=== PATIENT | female | born 1985 | race Caucasian/White ===

== ENCOUNTER 2022-09-27 12:27 | Outpatient (OUT) | payer OTHER, SELFPAY ==
--- NOTE | 2022-09-27 13:04 | VEIN_ITS ---
Patient: LESLY ANAYA Exam Date: 09/27/2022 : 1985 Gender:F Ordering : DR TAWANA GALVIN M.D. Admission #: [id number] Family : Order #: [id number] CLICK HERE TO VIEW EXAM RADIOLOGY REPORT PROCEDURE: [facility] EST [facility] - OFFICE VISIT FOLLOW UP COMPARISON: None. PROGRESS NOTES: The patient reports mild tenderness within medial right lower leg and thigh and mild bruising. There has been interval reduction in varicosities. The patient has followed our recommendations to walk 20-30 minutes once or twice per day since the procedure. Physical exam demonstrates mild bruising within the medial thigh and lower right leg. No evidence of infection. Persistent varicosities are identified along the right leg. Review of the ultrasound performed the same day demonstrates occlusive thrombus extending throughout the treated vein, see separate report, consistent with a successful ablation. No thrombus extending into or beyond the saphenofemoral junction. The patient expressed a desire to proceed with treatment of remaining dilated incompetent superficial veins. The patient was informed that treatment was a process and would require several procedures/sessions. IMPRESSION: 1. Successful ablation of the right great saphenous vein 2. Persistent incompetent dilated veins and bilateral lower extremity symptoms PLAN: Endovenous laser ablation of left great saphenous vein. Nurse notes, history and physical were reviewed and confirmed, see attached forms. The nurse was present throughout the physical exam and consultation Dictated by: Sebastian Garrett M.D. on 09/27/2022 at 13:18 Approved by: Sebastian Garrett M.D. on 09/27/2022 at 13:23
--- NOTE | 2022-09-27 13:04 | VEIN_ITS ---
Patient: LESLY ANAYA Exam Date: 09/27/2022 : 1985 Gender:F Ordering : DR TAWANA GALVIN M.D. Admission #: [id number] Family : Order #: [id number] CLICK HERE TO VIEW EXAM RADIOLOGY REPORT PROCEDURE: VC EXT VENOUS RT LMTD COMPARISON: None. INDICATIONS: Superficial Phlebitis and Thrombophlebitis of right lower extremity i80.01 TECHNIQUE: Lower extremity larson scale and Duplex Doppler evaluation of the deep venous system from the inguinal ligament through the calf veins. FINDINGS: REGION: Right lower extremity. THROMBI: Negative for DVT. Heat induced thrombus in right GSV 4.0 mm from SFJ and extends to proximal calf. Thrombus also visualized in varicose vein medial thigh off GSV. COMPRESSIBILITY: Non-compressible segments. FLOW: Areas of no flow. OTHER: CONCLUSION: 1. Successful post ablation occlusion of right great saphenous vein. 2. Thrombus extends to within 4 millimeters of the saphenofemoral junction. Patient will be placed on 325 mg aspirin once per day for 2 weeks. Follow-up ultrasound in 2 weeks. Dictated by: Sebastian Garrett M.D. on 09/27/2022 at 13:03 Approved by: Sebastian Garrett M.D. on 09/27/2022 at 13:18
== END 2022-09-27 12:28 ==
LOC: VC 12:27
PROVIDERS: PCP Radiology Diagnostic Radiology; Visit Provider Radiology Diagnostic Radiology
DX: I80.01 Phlebitis and thrombophlebitis of superficial vessels of right lower extremity (principal); I83.813 Varicose veins of bilateral lower extremities with pain
CPT/HCPCS: 93971; G0463

== ENCOUNTER 2022-10-10 09:55 | Outpatient (OUT) | payer OTHER, SELFPAY ==
--- NOTE | 2022-10-10 | VEIN_ITS ---
[address] [address] Patient Name: LESLY ANAYA MRN: [id number] date: 1985 Sex: F Assigned Patient Location: Current Patient Location: Accession/Order Number: [id number] Exam Date: 10/10/2022 08:55 Report Date: 10/10/2022 14:36 At the request of: TAWANA GALVIN Procedure: VC Endovenous Ablation 1VeinLT EXAMINATION: VC Endovenous Ablation 1VeinLT HISTORY: Pain due to varicose veins of bilateral legs I83.813 COMPARISON: No relevant comparison available. TECHNIQUE: The risks and benefits of the procedure had been previously discussed, and were rediscussed at length. Informed written consent was obtained and Joo Felder assisted. Time out procedure was performed. The left lower extremity was prepared and draped in the usual sterile fashion to allow knee flexion in the sterile field. Duplex ultrasound probe was draped in a sterile cover, sterile transmission gel was used. Venous mapping was performed with the areas of dilation and large tributaries marked. The total length was 63 cm from the entry 6 cm above the medial malleolus to 3 cm below the saphenofemoral junction. The diameter of the greater saphenous vein ranged from 4-14 mm. A 30 gauge needle and 1% buffered lidocaine was used to anesthetize the entry site. A 4 mm incision was made with a scalpel and the saphenous vein was entered percutaneously under direct ultrasound guidance with a micropuncture set, a single stick was successful in gaining access. A micro-guide wire was inserted and the needle removed. A micro-set including a dilator was inserted over the microwire and the needle and dilator were removed. A .038 guide wire was inserted through the micro-set and threaded through the saphenous vein to the saphenofemoral junction. The dilator was removed and an introducer sheath was inserted over the wire until the end of the sheath entered the saphenofemoral junction. The dilator and wire were removed and the 600 micron fiber was introduced and placed and positioned so that it extended beyond the sheath and was 3 cm peripheral to the saphenofemoral femoral junction. Final position of the fiber was determined by ultrasound guidance and duplex imaging. Tumescent anesthetic was delivered by ultrasound guidance. 350 cc of fluid was delivered along the entire course of the saphenous vein. The solution consisted of 1000 cc of normal saline with 40 mL of 1% lidocaine and 20 mL of sodium bicarbonate. A final positioning check was made. The energy source was turned on by means of the foot pedal and the fiber and sheath were withdrawn. The total number of Joules delivered was 2962. The laser was active for 370seconds under continuous pulse, average laser use of 8 J. Laser start time 10:49 am 10/10/22. . Laser stop time 10:55 am 10/10/22. A duplex ultrasound revealed compressibility and flow at the saphenofemoral junction immediately after the procedure. Hemostasis at the access site was achieved. The skin incision of the saphenous vein was closed with a 4 x 4. A compression stocking was applied. Postop instructions were given. A follow up appointment was recommended and scheduled. The patient tolerated the procedure well and was discharged in good condition. IMPRESSION: Technically successful endovenous laser ablation left great saphenous vein Electronically authenticated by: TAWANA GALVIN Date: 10/10/2022 14:36
[2022-10-14] MEDS: LIDOCAINE HCL 10 ML, SODIUM BICARBONATE 1 MEQ INJ (11:45)
[2022-10-14] MEDS: 0.9 % SODIUM CHLORIDE 500 ML, LIDOCAINE HCL 20 ML, SODIUM BICARBONATE 10 MEQ INJ (11:45)
== END 2022-10-10 09:56 ==
LOC: VC 09:56
PROVIDERS: PCP Radiology Diagnostic Radiology; Visit Provider Radiology Diagnostic Radiology
DX: I83.813 Varicose veins of bilateral lower extremities with pain (principal)
CPT/HCPCS: 36478

== ENCOUNTER 2022-10-17 14:22 | Outpatient (OUT) | payer OTHER, SELFPAY ==
--- NOTE | 2022-10-17 14:24 | VEIN_ITS ---
Patient: LESLY ANAYA Exam Date: 10/17/2022 : 1985 Gender:F Ordering : DR TAWANA GALVIN M.D. Admission #: [id number] Family : Order #: [id number] CLICK HERE TO VIEW EXAM RADIOLOGY REPORT PROCEDURE: [facility] EST [facility] - OFFICE VISIT FOLLOW UP COMPARISON: FACILITY EST [facility]D, 09/27/2022. PROGRESS NOTES: The patient reports prominent bruising within left thigh and mild twinges of discomfort with movement. There has been interval reduction in varicosities. The patient has followed our recommendations to walk 20-30 minutes once or twice per day since the procedure. Physical exam demonstrates large area of bruising within left thigh, and slight decrease in varicosities of the left leg. Persistent varicosities are identified along the legs bilaterally. Review of the ultrasound performed the same day demonstrates occlusive thrombus extending throughout the treated vein, see separate report, consistent with a successful ablation. No thrombus extending into or beyond the saphenofemoral junction. The patient expressed a desire to proceed with treatment of remaining incompetent superficial veins. The patient was informed that treatment was a process and would require several procedures/sessions. IMPRESSION: 1. Successful ablation of the left great saphenous vein 2. Persistent incompetent varicose veins and bilateral lower extremity symptoms PLAN: 1. Endovenous laser ablation of right small saphenous vein. Nurse notes, history and physical were reviewed and confirmed, see attached forms. The nurse was present throughout the physical exam and consultation Dictated by: Sebastian Garrett M.D. on 10/17/2022 at 15:01 Approved by: Sebastian Garrett M.D. on 10/17/2022 at 15:03
--- NOTE | 2022-10-17 14:24 | VEIN_ITS ---
Patient: LESLY ANAYA Exam Date: 10/17/2022 : 1985 Gender:F Ordering : DR TAWANA GALVIN M.D. Admission #: [id number] Family : Order #: [id number] CLICK HERE TO VIEW EXAM RADIOLOGY REPORT PROCEDURE: VC EXT VENOUS LT LIMITED COMPARISON: None. INDICATIONS: Phlebitis of superficial veins of lt lower extremity I80.02 TECHNIQUE: Lower extremity larson scale and Duplex Doppler evaluation of the deep venous system from the inguinal ligament through the calf veins. FINDINGS: REGION: Left lower extremity. THROMBI: Negative for DVT. Heat induced thrombus visualized 1.8 cm from the SFJ. The heat induced thrombus extends from groin to mid calf. COMPRESSIBILITY: Non-compressible segments. FLOW: Areas of no flow. OTHER: CONCLUSION: 1. Successful post ablation occlusion of left great saphenous vein. Dictated by: Sebastian Garrett M.D. on 10/17/2022 at 15:00 Approved by: Sebastian Garrett M.D. on 10/17/2022 at 15:00
== END 2022-10-17 14:23 ==
LOC: VC 14:23
PROVIDERS: PCP Radiology Diagnostic Radiology; Visit Provider Radiology Diagnostic Radiology
DX: I80.02 Phlebitis and thrombophlebitis of superficial vessels of left lower extremity (principal)
CPT/HCPCS: 93971; G0463

== ENCOUNTER 2022-11-01 10:17 | Outpatient (OUT) | payer OTHER, SELFPAY ==
--- NOTE | 2022-11-01 10:19 | VEIN_ITS ---
[address] [address] Patient Name: LESLY ANAYA MRN: [id number] date: 1985 Sex: F Assigned Patient Location: Current Patient Location: Accession/Order Number: [id number] Exam Date: 11/01/2022 10:53 Report Date: 11/01/2022 12:00 At the request of: TAWANA GALVIN Procedure: VC Endovenous Ablation 1VeinRT EXAMINATION: VC Endovenous Ablation 1Vein right SSV HISTORY: I83.813 Pain due to varicose veins of bilateral legs COMPARISON: No relevant comparison available. TECHNIQUE: The risks and benefits of the procedure had been previously discussed, and were rediscussed at length. Informed written consent was obtained. Piper Hood and Ju[place] assisted. Time out procedure was performed. The right lower extremity was prepared and draped in the usual sterile fashion. Duplex ultrasound probe was draped in a sterile cover, sterile transmission gel was used. Venous mapping was performed with the areas of dilation and large tributaries marked. The total length was 19 cm from the entry distal thigh to where the vein begins to dive deep into the muscle fascia. The diameter of the greater saphenous vein ranged from 3-6 mm. A 30 gauge needle and 1% buffered lidocaine was used to anesthetize the entry site. A 4 mm incision was made with a scalpel and the saphenous vein was entered percutaneously under direct ultrasound guidance with a micropuncture set, a single stick was successful in gaining access. A micro-guide wire was inserted and the needle removed. A micro-set including a dilator was inserted over the microwire and the needle and dilator were removed. A .018 guide wire was inserted through the micro-set and threaded through the saphenous vein to the saphenofemoral junction. The dilator was removed and an introducer sheath was inserted over the wire until the end of the sheath entered the saphenofemoral junction. The dilator and wire were removed and the 600 micron fiber was introduced and placed and positioned so that it extended beyond the sheath and was 3 cm peripheral to the saphenofemoral femoral junction. Final position of the fiber was determined by ultrasound guidance and duplex imaging. Tumescent anesthetic was delivered by ultrasound guidance. 75 cc of fluid was delivered along the entire course of the saphenous vein. The solution consisted of 1000 cc of normal saline with 40 mL of 1% lidocaine and 20 mL of sodium bicarbonate. A final positioning check was made. The energy source was turned on by means of the foot pedal and the fiber and sheath were withdrawn. The total number of Joules delivered was 903. The laser was active for 113seconds under continuous pulse, average laser use of 8 J. Laser start time 11:02 AM 11/01/2022 . Laser stop time 11:04 AM 11/01/2022 . A duplex ultrasound revealed compressibility and flow at the saphenofemoral junction immediately after the procedure. Hemostasis at the access site was achieved. The skin incision of the saphenous vein was closed with a 4 x 4. A compression stocking was applied. Postop instructions were given. A follow up appointment was recommended and scheduled. The patient tolerated the procedure well and was discharged in good condition . IMPRESSION: Technically successful endovenous laser ablation of the right small saphenous vein Electronically authenticated by: TAWANA GALVIN Date: 11/01/2022 12:00
[2022-11-01] MEDS: 0.9 % SODIUM CHLORIDE 500 ML, LIDOCAINE HCL 20 ML, SODIUM BICARBONATE 10 MEQ INJ (13:05)
[2022-11-01] MEDS: LIDOCAINE HCL 10 ML, SODIUM BICARBONATE 1 MEQ INJ (13:06)
== END 2022-11-01 10:18 | disposition home or self-care (01) ==
LOC: VC 10:17
PROVIDERS: PCP Radiology Diagnostic Radiology; Visit Provider Radiology Diagnostic Radiology
DX: I83.813 Varicose veins of bilateral lower extremities with pain (principal)
CPT/HCPCS: 36478

== ENCOUNTER 2022-11-07 09:33 | Outpatient (OUT) | payer OTHER, SELFPAY ==
--- NOTE | 2022-11-07 09:34 | VEIN_ITS ---
Patient: LESLY ANAYA Exam Date: 11/07/2022 : 1985 Gender:F Ordering : DR TAWANA GALVIN M.D. Admission #: [id number] Family : Order #: [id number] CLICK HERE TO VIEW EXAM RADIOLOGY REPORT PROCEDURE: [facility] - OFFICE VISIT FOLLOW UP COMPARISON: [facility], 10/17/2022. PROGRESS NOTES: The patient reports improvement in leg symptoms. There has been interval reduction in varicosities. The patient has followed our recommendations to walk 20-30 minutes once or twice per day since the procedure. Physical exam demonstrates decrease in varicosities of the right leg. Persistent varicosities are identified along the legs bilaterally. Review of the ultrasound performed the same day demonstrates occlusive thrombus extending throughout the treated vein, see separate report, consistent with a successful ablation. No thrombus extending into or beyond the saphenofemoral junction. The patient expressed a desire to proceed with treatment of remaining incompetent branch saphenous varicosities. The patient was informed that treatment was a process and would require several procedures/sessions. [facility] IM[facility]ION: 1. Successful ablation of the right small saphenous vein 2. Persistent incompetent superficial veins and lower extremity symptoms PLAN: 1. Microfoam chemical ablation of remaining incompetent branch saphenous varicosities bilaterally; beginning on left. Nurse notes, history and physical were reviewed and confirmed, see attached forms. The nurse was present throughout the physical exam and consultation Dictated by: Sebastian Garrett M.D. on 11/07/2022 at 11:39 Approved by: Sebastian Garrett M.D. on 11/07/2022 at 11:41
--- NOTE | 2022-11-07 09:34 | VEIN_ITS ---
Patient: LESLY ANAYA Exam Date: 11/07/2022 : 1985 Gender:F Ordering : DR TAWANA GALVIN M.D. Admission #: [id number] Family : Order #: [id number] CLICK HERE TO VIEW EXAM RADIOLOGY REPORT PROCEDURE: VC EXT VENOUS RT LMTD COMPARISON: VC EXT VENOUS RT LMTD, 09/27/2022. INDICATIONS: I80.01 Phlebitis of superficial veins of rt lower extremity TECHNIQUE: Lower extremity larson scale and Duplex Doppler evaluation of the deep venous system from the inguinal ligament through the calf veins. FINDINGS: REGION: Right lower extremity. THROMBI: Negative for DVT. Heat induced thrombus visualized 2.5cm from the SFJ. The heat induced thrombus visualized from pop fossa through distal calf. COMPRESSIBILITY: Non-compressible segments. FLOW: Areas of no flow. OTHER: CONCLUSION: 1. Successful post ablation occlusion of right small saphenous vein. Dictated by: Sebastian Garrett M.D. on 11/07/2022 at 11:37 Approved by: Sebastian Garrett M.D. on 11/07/2022 at 11:39
== END 2022-11-07 09:34 | disposition home or self-care (01) ==
LOC: VC 09:33
PROVIDERS: PCP Radiology Diagnostic Radiology; Visit Provider Radiology Diagnostic Radiology
DX: I80.01 Phlebitis and thrombophlebitis of superficial vessels of right lower extremity (principal)
CPT/HCPCS: 93971; G0463

== ENCOUNTER 2022-11-18 13:59 | Outpatient (OUT) | payer OTHER, SELFPAY ==
--- NOTE | 2022-11-18 | VEIN_ITS ---
[address] [address] Patient Name: LESLY ANAYA MRN: [id number] date: 1985 Sex: F Assigned Patient Location: Current Patient Location: Accession/Order Number: [id number] Exam Date: 11/18/2022 14:00 Report Date: 11/18/2022 14:52 At the request of: TAWANA GALVIN Procedure: VC INJ Foam Sclerosant WUS TRIMMING OPERATOR PROCEDURE: VC INJ Foam Sclerosant WUS TRIMMING OPERATOR HISTORY: Pain due to varicose veins of bilateral legs I83.813 Pre-operative Diagnosis: CEAP class C4 venous insufficiency with pain, tenderness, edema and incompetent branch saphenous vein(s), chronic venous insufficiency left leg secondary to venous incompetence Post-operative Diagnosis: CEAP class C4 venous insufficiency with pain, tenderness, edema and incompetent branch saphenous vein(s), chronic venous insufficiency [ leg secondary to venous incompetence Procedure Performed: 1. Ultrasound-guided microfoam chemical ablation with Varithenaregistered 2. Intraoperative ultrasound guidance Physician: Sebastian Garrett M.D. Anesthesia: None Indications for Procedure: 37 year old female. Symptoms including lower extremity throbbing, swelling, itching, dilated veins for many years despite conservative medical therapy including medical compression stockings, exercise and analgesics. Prior procedures include endovenous laser ablation.. Multiple incompetent varicosities of the left leg. Duplex scan showed reflux and enlarged diameters up to 6 mm. The patient underwent informed consent including management options where the complications of infection, bleeding, pain, and skin injury were discussed. Particular attention was spent discussing thrombus extension and deep vein thrombosis as well as the possibility of pulmonary embolus and treatment with oral or injectable blood thinners. Procedure: The patient walked to the procedure room. All applicable staff donned appropriate apparel. A procedure timeout was performed to confirm correct patient, correct extremity, correct procedure, and correct room set-up including presence of all applicable supplies, devices, and drugs. A duplex ultrasound, performed by myself confirmed the location and incompetence of branch saphenous varicosities and their course was marked on the skin together with the dilated tributaries. The extent of treatment of the vein and the associated varicosities was determined through ultrasound mapping. The skin was prepped and then punctured with a butterfly needle and advanced under ultrasound guidance. The Varithenaregistered canister was activated and the canister was primed and purged as required in the instructions for use. Varithenaregistered was drawn into a sterile syringe. Varithenaregistered was slowly administered at 0.5-1.0 cc/second with close observation by ultrasound of its course in the vessels. Total volume utilized was: 15 mL (7 mL and 25 mm varicosity of the medial distal lower leg; 8 mL intravenous 6 mm varicosity medial to the knee). Following administration of Varithenaregistered the leg was elevated and the patient was asked to repeatedly dorsiflex the ankle to limit flow of Varithenaregistered into perforating veins. Once appropriate spasm had been confirmed in the treated veins, the vascular catheter was removed from the leg and light pressure was applied over the puncture site for hemostasis. The common femoral and deep superficial veins were then evaluated for flow and compressibility prior to dressing placement. The lower extremity was kept elevated at 45 degrees above the horizontal and cording material was applied over the saphenous segments and tributaries to allow for eccentric compression over the target vessels including the targeted saphenous vein(s). A multilayer dressing was applied consisting of foam pads, coban and thigh-high 20-30 mm Hg compression elastic support hose were placed on the patient. The leg was lowered only after compression had been applied and the patient was immediately ambulatory. The patient ambulated 10 minutes under supervision and was without apparent concerns at time of release. Post-care instructions include advising patient to keep post-treatment bandages in place and dry for 48 hours, avoid extended periods of inactivity, avoid heavy exercise for one week, wear compression stockings on the treated leg continuously for two weeks, to walk daily for 10 minutes over the next month. The patient was instructed to take an anti-inflammatory medicine as needed and to follow up for color duplex scan of the Saphenous veins, the treated branch saphenous varicosities, the adjacent deep veins, and additional treatment within 7 days. PERSONNEL: Joo Felder RN, Indigo Justice RDMS Electronically authenticated by: SEBASTIAN GARRETT Date: 11/18/2022 14:52
== END 2022-11-18 14:00 | disposition home or self-care (01) ==
LOC: VC 14:00
PROVIDERS: PCP Radiology Diagnostic Radiology; Visit Provider Radiology Diagnostic Radiology
DX: I83.813 Varicose veins of bilateral lower extremities with pain (principal)
CPT/HCPCS: 36466

== ENCOUNTER 2022-11-26 14:31 | Outpatient (OUT) | payer OTHER, SELFPAY ==
--- NOTE | 2022-11-26 | VEIN_ITS ---
Patient: LESLY ANAYA Exam Date: 11/26/2022 : 1985 Gender:F Ordering : DR SAV DELGADILLO M.D. Admission #: [id number] Family : Order #: [id number] CLICK HERE TO VIEW EXAM RADIOLOGY REPORT PROCEDURE: VC EXT VENOUS LT LIMITED COMPARISON: VC EXT VENOUS LT LIMITED, 10/17/2022. INDICATIONS: Phlebitis of superficial veins of lt lower extremity I80.02 TECHNIQUE: Lower extremity larson scale and Duplex Doppler evaluation of the deep venous system from the inguinal ligament through the calf veins. FINDINGS: REGION: Left lower extremity. THROMBI: Negative for DVT. Varithena induced thrombus visualized at dist/med calf and medial knee. COMPRESSIBILITY: Non-compressible segments corresponding to thrombus. FLOW: Absent flow corresponding to thrombus OTHER: Multiple patent varicose veins measuring up to 5 mm CONCLUSION: Post ablation occlusion of treated varicose veins with no deep vein thrombus Dictated by: Sav Delgadillo MD on 11/26/2022 at 15:08 Approved by: Sav Delgadillo MD on 11/26/2022 at 15:09
--- NOTE | 2022-11-26 | VEIN_ITS ---
Patient: LESLY ANAYA Exam Date: 11/26/2022 : 1985 Gender:F Ordering : DR SAV DELGADILLO M.D. Admission #: [id number] Family : Order #: [id number] CLICK HERE TO VIEW EXAM RADIOLOGY REPORT PROCEDURE: [facility]ILITY EST [facility] - OFFICE VISIT FOLLOW UP COMPARISON: [facility] EST [facility], 11/07/2022. FACILITY EST [facility]D, 10/17/2022. PROGRESS NOTES: The patient reports no significant problems following micro foam chemical ablation of left leg incompetent varicose veins. The patient has worn her compression stockings. The patient did not require oral analgesics. The patient has followed our recommendations to walk 20-30 minutes once or twice per day since the procedure. Physical exam demonstrates multiple thrombosed left leg varicose veins. Multiple bilateral incompetent varicose veins. Some bruising in the left leg and mild warmth and erythema along the distal medial thigh likely represents mild thrombophlebitis from her treatments. No active ulceration or additional evidence of cellulitis Review of the ultrasound performed the same day demonstrates occlusive thrombus extending throughout the treated left leg varicose veins with no deep vein thrombus. Residual bilateral incompetent varicose veins. The patient expressed a desire to proceed with treatment of incompetent right leg varicose veins. VEIN/ Facility EST [facility] IMPRESSION: 1. Successful ablation of incompetent treated left leg varicose veins 2. Persistent bilateral incompetent varicose veins. PLAN: Micro foam chemical ablation right leg Nurse notes, history and physical were reviewed and confirmed, see attached forms. The nurse was present throughout the physical exam and consultation Dictated by: Sav Delgadillo MD on 11/26/2022 at 15:12 Approved by: Sav Delgadillo MD on 11/26/2022 at 15:21
== END 2022-11-26 14:32 | disposition home or self-care (01) ==
LOC: VC 14:31
PROVIDERS: PCP Radiology Diagnostic Radiology; Visit Provider Radiology Diagnostic Radiology
DX: I80.02 Phlebitis and thrombophlebitis of superficial vessels of left lower extremity (principal)
CPT/HCPCS: 93971; G0463

== ENCOUNTER 2022-12-25 08:55 | Outpatient (OUT) | payer OTHER, SELFPAY ==
--- NOTE | 2022-12-25 | VEIN_ITS ---
[address] [address] Patient Name: LESLY ANAYA MRN: [id number] date: 1985 Sex: F Assigned Patient Location: Current Patient Location: Accession/Order Number: [id number] Exam Date: 12/25/2022 09:00 Report Date: 12/25/2022 10:51 At the request of: TAWANA GALVIN Procedure: VC INJ Foam Sclerosant [employer] MANAGER PROCEDURE: VC INJ Foam Sclerosant [employer] MANAGER COMPARISON: None. HISTORY: Pain due to varicose veins of bilateral legs I83.813 Pre-operative Diagnosis: CEAP class C4 venous insufficiency with pain, tenderness, edema and incompetent saphenous vein(s) and varicose veins, chronic venous insufficiency right leg secondary to venous incompetence Post-operative Diagnosis: CEAP class C4 venous insufficiency with pain, tenderness, edema and incompetent saphenous vein(s) and varicose veins, chronic venous insufficiency right leg secondary to venous incompetence Procedure Performed: 1. Ultrasound-guided microfoam chemical ablation with Varithenaregistered 2. Intraoperative ultrasound guidance Anesthesia: None Indications for Procedure: 37-year-old female who presents with a long history of lower extremity pain and swelling itching and throbbing. The patient failed conservative medical therapy including medical compression stockings, exercise and analgesics. Prior procedures include endovenous laser ablation. Multiple incompetent varicosities of the right leg. Duplex scan showed reflux and enlarged diameters up to 9 mm. The patient underwent informed consent including management options where the complications of infection, bleeding, pain, and skin injury were discussed. Particular attention was spent discussing thrombus extension and deep vein thrombosis as well as the possibility of pulmonary embolus and treatment with oral or injectable blood thinners. Procedure: The patient walked to the procedure room. All applicable staff donned appropriate apparel. A procedure timeout was performed to confirm correct patient, correct extremity, correct procedure, and correct room set-up including presence of all applicable supplies, devices, and drugs. A duplex ultrasound, performed by myself confirmed the location and incompetence of branch saphenous varicosities and their course was marked on the skin together with the dilated tributaries. The extent of treatment of the vein and the associated varicosities was determined through ultrasound mapping. The skin was prepped and then punctured with a butterfly needle and advanced under ultrasound guidance. The Varithenaregistered canister was activated and the canister was primed and purged as required in the instructions for use. Varithenaregistered was drawn into a sterile syringe. The following injections were made: 7 cc injected into the distal patent and competent right great saphenous vein with flow into multiple branches saphenous tributaries 5 cc injected into a 5 mm incompetent varicose vein mid medial right calf 3 cc injected into 9 mm, in varicose vein distal medial right thigh Varithenaregistered was slowly administered at 0.5-1.0 cc/second with close observation by ultrasound of its course in the vessels. Total volume utilized was: 15cc. Following administration of Varithenaregistered the leg was elevated and the patient was asked to repeatedly dorsiflex the ankle to limit flow of Varithenaregistered into perforating veins. Once appropriate spasm had been confirmed in the treated veins, the vascular catheter was removed from the leg and light pressure was applied over the puncture site for hemostasis. The common femoral and deep superficial veins were then evaluated for flow and compressibility prior to dressing placement. The lower extremity was kept elevated at 45 degrees above the horizontal and cording material was applied over the saphenous segments and tributaries to allow for eccentric compression over the target vessels including the targeted saphenous vein(s). A multilayer dressing was applied consisting of foam pads, coban and thigh-high 20-30 mm Hg compression elastic support hose were placed on the patient. The leg was lowered only after compression had been applied and the patient was immediately ambulatory. The patient ambulated 10 minutes under supervision and was without apparent concerns at time of release. Post-care instructions include advising patient to keep post-treatment bandages in place and dry for 48 hours, avoid extended periods of inactivity, avoid heavy exercise for one week, wear compression stockings on the treated leg continuously for two weeks, to walk daily for 10 minutes over the next month. The patient was instructed to take an anti-inflammatory medicine as needed and to follow up for color duplex scan of the Saphenous veins, the treated branch saphenous varicosities, the adjacent deep veins, and additional treatment within 7 days. PERSONNEL: Joo Felder RN Electronically authenticated by: TAWANA GALVIN Date: 12/25/2022 10:51
== END 2022-12-25 08:56 | disposition home or self-care (01) ==
LOC: VC 08:55
PROVIDERS: PCP Radiology Diagnostic Radiology; Visit Provider Radiology Diagnostic Radiology
DX: I83.813 Varicose veins of bilateral lower extremities with pain (principal)
CPT/HCPCS: 36466

== ENCOUNTER 2023-01-01 10:57 | Outpatient (OUT) | payer OTHER, SELFPAY ==
--- NOTE | 2023-01-01 10:58 | VEIN_ITS ---
Patient: LESLY ANAYA Exam Date: 01/01/2023 : 1985 Gender:F Ordering : DR SAV DELGADILLO M.D. Admission #: [id number] Family : Order #: [id number] CLICK HERE TO VIEW EXAM RADIOLOGY REPORT PROCEDURE: VC EXT VENOUS RT LMTD COMPARISON: VC EXT VENOUS RT LMTD, 11/07/2022. VC EXT VENOUS RT LMTD, 09/27/2022. INDICATIONS: I80.01 Phlebitis of superficial veins of rt lower extremity TECHNIQUE: Lower extremity larson scale and Duplex Doppler evaluation of the deep venous system from the inguinal ligament through the calf veins. FINDINGS: REGION: Right lower extremity. THROMBI: Positive for DVT. Chemically induced thrombus in multiple varicose veins in right leg and remaining segments of distal GSV. Thrombus extends into PTV in approximately 13 cm segment 7-8 cm from SPJ. COMPRESSIBILITY: Non-compressible segments corresponding to thrombus. FLOW: Absent flow corresponding to thrombus OTHER: Patent varicose vein medial anterior knee measures 4.7 mm. Varicosity mid medial/anterior thigh measures 4.3 mm. CONCLUSION: Post ablation occlusion of treated varicose veins with a 13 cm segment of deep vein thrombus in a posterior tibial vein, 7-8 cm removed from the saphenopopliteal junction Dictated by: Sav Delgadillo MD on 01/01/2023 at 11:32 Approved by: Sav Delgadillo MD on 01/01/2023 at 11:33
--- NOTE | 2023-01-01 10:58 | VEIN_ITS ---
Patient: LESLY ANAYA Exam Date: 01/01/2023 : 1985 Gender:F Ordering : DR SAV DELGADILLO M.D. Admission #: [id number] Family : Order #: [id number] CLICK HERE TO VIEW EXAM RADIOLOGY REPORT PROCEDURE: FACILITY EST LMTD [facility] - OFFICE VISIT FOLLOW UP COMPARISON: FACILITY EST LMTD, 11/26/2022. FACILITY EST LMTD, 11/07/2022. PROGRESS NOTES: The patient reports no significant problems following right leg micro foam chemical ablation. The patient did not require oral analgesics. The patient has worn her compression stockings as directed. The patient has followed our recommendations to walk 20-30 minutes once or twice per day since the procedure. Physical exam demonstrates multiple thrombosed varicose veins. Some scattered mild hemosiderin staining. The patient was cautioned on sun exposure in use of either clothing or a mechanical sunblock to reduce permanent hemosiderin staining. Review of the ultrasound performed the same day demonstrates occlusive thrombus extending throughout the treated varicose veins however there is a 13 cm segment of deep vein thrombus in a single posterior tibial vein. This thrombus is far removed from the popliteal junction by approximately 7-8 cm. The deep vein thrombus was discussed with the patient. The patient was instructed to take a 325 milligram aspirin once per day with a follow-up ultrasound in 7 days. The patient was asked to call for any change in symptoms or go to the emergency room for new acute pain. VEIN/ Facility EST LMTD IMPRESSION: 1. Successful ablation of treated right leg varicose veins 2. 13 cm segment of deep vein thrombus in the right posterior tibial vein 7-8 cm removed from the popliteal junction. PLAN: 325 milligram aspirin once per day Follow-up ultrasound in 7 days Nurse notes, history and physical were reviewed and confirmed, see attached forms. The nurse was present throughout the physical exam and consultation Dictated by: Sav Delgadillo MD on 01/01/2023 at 12:39 Approved by: Sav Delgadillo MD on 01/01/2023 at 12:41
== END 2023-01-01 10:58 | disposition home or self-care (01) ==
LOC: VC 10:57
PROVIDERS: PCP Radiology Diagnostic Radiology; Visit Provider Radiology Diagnostic Radiology
DX: I80.01 Phlebitis and thrombophlebitis of superficial vessels of right lower extremity (principal)
CPT/HCPCS: 93971; G0463

== ENCOUNTER 2023-01-08 10:27 | Outpatient (OUT) | payer OTHER, SELFPAY ==
--- NOTE | 2023-01-08 | VEIN_ITS ---
Patient: LESLY ANAYA Exam Date: 01/08/2023 : 1985 Gender:F Ordering : DR SAV DELGADILLO M.D. Admission #: [id number] Family : Order #: [id number] CLICK HERE TO VIEW EXAM RADIOLOGY REPORT PROCEDURE: VC EXT VENOUS RT LMTD COMPARISON: VC EXT VENOUS RT LMTD, 01/01/2023. VC EXT VENOUS RT LMTD, 11/07/2022. INDICATIONS: Phlebitis of superficial veins of rt lower extremity I80.01 TECHNIQUE: Lower extremity larson scale and Duplex Doppler evaluation of the deep venous system from the inguinal ligament through the calf veins. FINDINGS: REGION: Right lower extremity. THROMBI: Positive for DVT. Deep vein thrombus and a single posterior tibial vein measuring 10 cm long,12 cm from popliteal vein. COMPRESSIBILITY: Non-compressible segments. FLOW: Absent flow corresponding to thrombus CONCLUSION: Stable deep vein thrombus in a 10 cm segment of a single posterior tibial vein, 12 cm from the popliteal vein Dictated by: Sav Delgadillo MD on 01/08/2023 at 10:49 Approved by: Sav Delgadillo MD on 01/08/2023 at 10:52
--- NOTE | 2023-01-08 | VEIN_ITS ---
Patient: LESLY ANAYA Exam Date: 01/08/2023 : 1985 Gender:F Ordering : DR SAV DELGADILLO M.D. Admission #: [id number] Family : Order #: [id number] CLICK HERE TO VIEW EXAM RADIOLOGY REPORT PROCEDURE: FACILITY EST LMTD [facility] - OFFICE VISIT FOLLOW UP COMPARISON: FACILITY EST LMTD, 01/01/2023. FACILITY EST LMTD, 11/26/2022. PROGRESS NOTES: The patient reports no interval change. The patient reports continued improvement in her initial presenting symptoms. The patient has worn her compression stocking. The patient did not require oral analgesics. The patient has taken her aspirin as directed. Physical exam demonstrates multiple thrombosed varicose veins with moderate hemosiderin staining. No areas of erythema warmth or active ulceration. No evidence of cellulitis or thrombophlebitis Review of the ultrasound performed the same day demonstrates occlusive deep vein thrombus in a 10 cm segment of a single right posterior tibial vein, 12 cm from the popliteal vein, this appears slightly improved from the prior exam. The patient expressed a desire to proceed with treatment of incompetent left leg varicose veins. VEIN/ Facility EST LMTD IMPRESSION: 1. Interval improvement of a deep vein thrombus in a single right posterior tibial vein far removed from the popliteal vein 2. Persistent dilated incompetent left leg varicose veins. PLAN: Micro foam chemical ablation left leg incompetent varicose veins Nurse notes, history and physical were reviewed and confirmed, see attached forms. The nurse was present throughout the physical exam and consultation Dictated by: Sav Delgadillo MD on 01/08/2023 at 11:14 Approved by: Sav Delgadillo MD on 01/08/2023 at 11:16
== END 2023-01-08 10:28 | disposition home or self-care (01) ==
LOC: VC 10:27
PROVIDERS: PCP Radiology Diagnostic Radiology; Visit Provider Radiology Diagnostic Radiology
DX: I80.01 Phlebitis and thrombophlebitis of superficial vessels of right lower extremity (principal)
CPT/HCPCS: 93971; G0463

== ENCOUNTER 2023-01-23 10:48 | Outpatient (OUT) | payer OTHER, SELFPAY ==
--- NOTE | 2023-01-23 10:52 | VEIN_ITS ---
[address] [address] Patient Name: LESLY ANAYA MRN: [id number] date: 1985 Sex: F Assigned Patient Location: Current Patient Location: Accession/Order Number: [id number] Exam Date: 01/23/2023 10:53 Report Date: 01/23/2023 12:25 At the request of: TAWANA GALVIN Procedure: VC INJ Foam Sclerosant [employer] POLITICAL CONSULTANT PROCEDURE: VC INJ Foam Sclerosant [employer]US POLITICAL CONSULTANT HISTORY: I83.813 Painful varicose veins of bilat lower extremities Pre-operative Diagnosis: CEAP class C4a venous insufficiency with pain, tenderness, edema and incompetent branch saphenous vein(s), chronic venous insufficiency left leg secondary to venous incompetence Post-operative Diagnosis: CEAP class C4a venous insufficiency with pain, tenderness, edema and incompetent branch saphenous vein(s), chronic venous insufficiency left leg secondary to venous incompetence Procedure Performed: 1. Ultrasound-guided microfoam chemical ablation with Varithenaregistered 2. Intraoperative ultrasound guidance Physician: Sebastian Garrett M.D. Anesthesia: None Indications for Procedure: 37 year old female. Symptoms including lower extremity pain, swelling, cramping, dilated veins for many years despite conservative medical therapy including medical compression stockings, exercise and analgesics. Prior procedures include endovenous laser ablation and Microfoam chemical ablation. Multiple incompetent varicosities of the left leg. Duplex scan showed reflux and enlarged diameters up to 5 mm. The patient underwent informed consent including management options where the complications of infection, bleeding, pain, and skin injury were discussed. Particular attention was spent discussing thrombus extension and deep vein thrombosis as well as the possibility of pulmonary embolus and treatment with oral or injectable blood thinners. Procedure: The patient walked to the procedure room. All applicable staff donned appropriate apparel. A procedure timeout was performed to confirm correct patient, correct extremity, correct procedure, and correct room set-up including presence of all applicable supplies, devices, and drugs. A duplex ultrasound, performed by myself confirmed the location and incompetence of branch saphenous varicosities and their course was marked on the skin together with the dilated tributaries. The extent of treatment of the vein and the associated varicosities was determined through ultrasound mapping. The skin was prepped and then punctured with a butterfly needle and advanced under ultrasound guidance. The Varithenaregistered canister was activated and the canister was primed and purged as required in the instructions for use. Varithenaregistered was drawn into a sterile syringe. Varithenaregistered was slowly administered at 0.5-1.0 cc/second with close observation by ultrasound of its course in the vessels. Total volume utilized was: 12 mL (6 mL into a 4 mm incompetent varicosity of the mid medial lower left leg; 6 mL into a 5 mm varicosity of the mid medial thigh). Following administration of Varithenaregistered the leg was elevated and the patient was asked to repeatedly dorsiflex the ankle to limit flow of Varithenaregistered into perforating veins. Once appropriate spasm had been confirmed in the treated veins, the vascular catheter was removed from the leg and light pressure was applied over the puncture site for hemostasis. The common femoral and deep superficial veins were then evaluated for flow and compressibility prior to dressing placement. The lower extremity was kept elevated at 45 degrees above the horizontal and cording material was applied over the saphenous segments and tributaries to allow for eccentric compression over the target vessels including the targeted saphenous vein(s). A multilayer dressing was applied consisting of foam pads, coban and thigh-high 20-30 mm Hg compression elastic support hose were placed on the patient. The leg was lowered only after compression had been applied and the patient was immediately ambulatory. The patient ambulated 10 minutes under supervision and was without apparent concerns at time of release. Post-care instructions include advising patient to keep post-treatment bandages in place and dry for 48 hours, avoid extended periods of inactivity, avoid heavy exercise for one week, wear compression stockings on the treated leg continuously for two weeks, to walk daily for 10 minutes over the next month. The patient was instructed to take an anti-inflammatory medicine as needed and to follow up for color duplex scan of the Saphenous veins, the treated branch saphenous varicosities, the adjacent deep veins, and additional treatment within 7 days. PERSONNEL: Juana Lyon RN Electronically authenticated by: SEBASTIAN GARRETT Date: 01/23/2023 12:25
== END 2023-01-23 10:49 | disposition home or self-care (01) ==
LOC: VC 10:48
PROVIDERS: PCP Radiology Diagnostic Radiology; Visit Provider Radiology Diagnostic Radiology
DX: I83.813 Varicose veins of bilateral lower extremities with pain (principal)
CPT/HCPCS: 36466

== ENCOUNTER 2023-01-29 13:18 | Outpatient (OUT) | payer OTHER, SELFPAY ==
--- NOTE | 2023-01-29 | VEIN_ITS ---
Patient: LESLY ANAYA Exam Date: 01/29/2023 : 1985 Gender:F Ordering : DR SAV DELGADILLO M.D. Admission #: [id number] Family : Order #: [id number] CLICK HERE TO VIEW EXAM RADIOLOGY REPORT PROCEDURE: VC EXT VENOUS LT LIMITED COMPARISON: VC EXT VENOUS LT LIMITED, 11/26/2022. VC EXT VENOUS LT LIMITED, 10/17/2022. INDICATIONS: Phlebitis of superficial veins of lt lower extremity I80.02 TECHNIQUE: Lower extremity larson scale and Duplex Doppler evaluation of the deep venous system from the inguinal ligament through the calf veins. FINDINGS: REGION: Left lower extremity. THROMBI: Negative for DVT. Chemically induced thrombus in multiple varicose veins medial left leg. COMPRESSIBILITY: Non-compressible segments corresponding thrombus. FLOW: Absent flow corresponding to thrombus OTHER: Varicose vein arising from SSV remains patent measuring 3.8 mm. CONCLUSION: Post ablation occlusion treated incompetent varicose veins.. Dictated by: Sav Delgadillo MD on 01/29/2023 at 14:14 Approved by: Sav Delgadillo MD on 01/29/2023 at 14:19
--- NOTE | 2023-01-29 | VEIN_ITS ---
Patient: LESLY ANAYA Exam Date: 01/29/2023 : 1985 Gender:F Ordering : DR SAV DELGADILLO M.D. Admission #: [id number] Family : Order #: [id number] CLICK HERE TO VIEW EXAM RADIOLOGY REPORT PROCEDURE: FACILITY EST LMTD [facility] - OFFICE VISIT FOLLOW UP COMPARISON: FACILITY EST LMTD, 01/08/2023. FACILITY EST LMTD, 01/01/2023. PROGRESS NOTES: The patient reports some mild discomfort following micro foam chemical ablation of the left leg. The patient has compression stockings. The patient does report intermittent swelling leg and was concerned about a known deep vein thrombus. There has been interval reduction in varicosities. The patient has followed our recommendations to walk 20-30 minutes once or twice per day since the procedure. Physical exam demonstrates multiple thrombosed varicose veins with moderate bruising and hemosiderin staining. Protection from sun exposure was discussed with the patient. No residual incompetent varicose reticular spider veins remain Review of the ultrasound performed the same day demonstrates occlusive thrombus extending throughout the treated left leg varicose veins. No significant residual incompetent varicose veins are observed. Small segment deep vein thrombus in a single right posterior tibial vein remains stable, far removed from a popliteal junction. I discussed with the patient that her lower extremity intermittent swelling was of unknown etiology but not related to her vein disease at this time. I recommended a 1 year follow-up. VEIN/ Facility EST LMTD IMPRESSION: 1. Successful ablation of treated left leg incompetent varicose veins 2. The patient's treatment plan is complete. PLAN: Follow-up in 12 months Nurse notes, history and physical were reviewed and confirmed, see attached forms. The nurse was present throughout the physical exam and consultation Dictated by: Sav Delgadillo MD on 01/29/2023 at 14:20 Approved by: Sav Delgadillo MD on 01/29/2023 at 14:22
== END 2023-01-29 13:19 | disposition home or self-care (01) ==
LOC: VC 13:18
PROVIDERS: PCP Radiology Diagnostic Radiology; Visit Provider Radiology Diagnostic Radiology
DX: I80.02 Phlebitis and thrombophlebitis of superficial vessels of left lower extremity (principal)
CPT/HCPCS: 93971; G0463

== ENCOUNTER 2023-04-09 19:52 | Outpatient (REF) | payer OTHER, SELFPAY ==
[2023-04-15 12:09] LABS: Age Gdln ACOG Testing Note (.); HPV Aptima Negative (Negative); IGP, Aptima HPV, rfx 16/18,45 Note (.)
== END 2023-04-09 19:53 | disposition home or self-care (01) ==
LOC: LAB 19:52
PROVIDERS: PCP Radiology Diagnostic Radiology; Visit Provider Physician Assistant
DX: Z01.419 Encounter for gynecological examination (general) (routine) without abnormal findings (principal)
CPT/HCPCS: 87624; G0145

== ENCOUNTER 2023-05-02 08:46 | Emergency (ER) | payer OTHER, SELFPAY ==
[2023-05-02 08:50] VITALS: BP 179/95; PULSE 80; RESP 18; TEMP 36.6; O2SAT 96; BMI 44.6
[2023-05-02] MEDS: 0.9 % SODIUM CHLORIDE 1,000 ML 999 ML IV (09:05)
[2023-05-02] MEDS: ONDANSETRON PF 4 MG/2 ML VIAL IV ×2 (09:07→10:31)
[2023-05-02 09:15] LABS: Basophils Percent Auto 0.4 % (0.2-2.0); Eosinophils Percent Auto 0.2 % (0.9-7.0); Hematocrit 43.3 % (36.0-48.0); Hemoglobin 15.1 g/dL (12.0-16.0); Immature Granulocytes Abs Auto 0.02 10^3/uL (0.00-0.03); Immature Granulocytes Pct Auto 0.2 % (0.0-0.5); Lymphocytes Absolute Auto 1.8 10^3/uL (1.2-3.8); Lymphocytes Percent Auto 21.7 % (20.5-60.0); Mean Corpuscular HGB Conc 34.9 g/dL (29.9-35.2); Mean Corpuscular Volume 85.9 fL (81.0-99.0); Mean Platelet Volume 9.2 fL (9.5-13.5); Monocytes Absolute Auto 0.9 10^3/uL (0.3-0.8); Monocytes Percent Auto 11.1 % (1.7-12.0); Neutrophils Absolute Auto 5.6 10^3/uL (1.4-6.5); Neutrophils Percent Auto 66.4 % (43.0-75.0); Platelet Count 312 10^3/uL (150-450); Red Blood Count 5.04 10^6/uL (4.20-5.40); Red Cell Distribution Width 12.1 % (11.0-15.0); White Blood Count 8.4 10^3/uL (4.0-11.0)
[2023-05-02 09:17] LABS: HCG Qualitative Urine* NEGATIVE (NEGATIVE)
--- OUTSIDE RECORDS SUMMARY | 2023-05-02 09:17 | XMS_ITS | CCD ---
Author Name Unknown Address [address] [place] [address] Organization [facility] Care Team Providers Care Barge Captain Name Role Phone Sundar Nunez Attending Provider NON, STAFF, Primary Care Provider UnavailJf Nava Attending Provider Sera Escobedo Primary Care Provider [phone] SERA ESCOBEDO Primary Care Unavailable SERA ESCOBEDO Admitting Unavailable KAMAR, DR TAWANA Landry Consulting Unavailable SERA ESCOBEDO Attending Unavailable SERA ESCOBEDO Consulting Unavailable FANNY, SERA Primary Care Unavailable JOVANNY ., DR VINSON Admitting Unavailable JOVANNY ., DR VINSON Attending Unavailable JOAVNNY ., DR VINSON Consulting Unavailable ZIEBER, DR SEBASTIAN Patrick Consulting Unavailable FANNY, SEAR Primary Care Unavailable JOVANNY ., DR VINSON Admitting Unavailable JOVANNY ., DR VINSON Attending Unavailable JOVANNY ., DR VINSON Consulting Unavailable KAMAR, DR TAWANA Landry Admitting Unavailable FANNY, SERA Primary Care Unavailable KAMAR, DR TAWANA Landry Attending Unavailable KAMAR, DR TAWANA Landry Consulting Unavailable FANNY, SERA Primary Care Unavailable WEST, DR TAWANA Landry Consulting Unavailable FANNY, SERA Admitting Unavailable SERA ESCOBEDO Attending Unavailable SERA ESCOBEDO Consulting Unavailable FANNY, SERA Primary Care Unavailable ATNONIO GRAHAM Admitting Unavailable CLEVE AL Consulting UnavailANTONIO Gonsales Attending Unavailable MOON NASSAR Unavailable Unavailable Unavailable Unavailable Medications Current Medications Medication Drug Class(es) Dates Sig (Normalized) Sig (Original) Albuterol Sulfate (3 sources) beta2-Adrenergic Agonist Start: 05-03-2020 Albuterol Sulfate Active 1 - 2 PUFF INHALATION As Directed May 03, 2020 12:28pm Start: 05-03-2020 Albuterol Sulf ate Active 1 - 2 PUFF INHALATION As Directed May 03, 2020 11:28am cyclobenzaprine hydrochloride 10 mg oral tablet (3 sources) Muscle Relaxant Start: 05-02-2020 take 10 mg by mouth once daily Cyclobenzaprine Active 10 MG PO Daily May 02, 2020 11:40am diclofenac sodium 75 mg delayed release oral tablet (3 sources) Nonsteroidal Anti-inflammatory Drug Start: 05-02-2020 take 75 mg by mouth twice daily Diclofenac Sodium Active 75 MG PO Twice daily May 02, 2020 11:40am Problems Active Problems Problem Classification Problem Date Documented Da te Episodic/Chronic Nausea and vomiting (1 source) Nausea with vomiting, unspecified; Translations: [NAUSEA WITH VOMITING UNSPECIFIED] Onset: 07-10-2022 Episodic Other connective tissue disease (4 sources) Other specified soft tissue disorders; Translations: [OTHER SPEC SOFT TISSUE DISORDERS] Onset: 08-03-2022 Episodic Other gastrointestinal disorders (4 sources) Diarrhea, unspecified; Translations: [DIARRHEA UNSPECIFIED] Onset: 07-09-2022 Episodic Unclassified (1 source) CONTACT W/AND (SUSP) EXPOS COVID-19; Translations: [CONTACT W/AND (SUSP) EXPOS COVID-19] Onset: 07-10-2022 Varicose veins of lower extremity (8 sources) Varicose veins of bilateral lower extremities with pain; Translations: [Varicose veins of bilateral lower extremities with other complications] Onset: 08-21-2022 Episodic Past or Other Problems Problem Classification Problem Date Documented Date Episodic/Chronic Immunizations and screening for infectious disease (1 source) Encounter for screening for human papillomavirus (HPV); Translations: [ENC SCREENING HUMAN PAPILLOMAVIRUS] Onset: 04-08-2022 Episodic Nonmalignant breast conditions (5 sources) Mastodynia; Translations: [Unspecified lump in the left breast, upper outer quadrant] Onset: 04-12-2022 Episodic Other screening for suspected conditions (not mental disorders or infectious disease) (4 sources) Encounter for screening for malignant neoplasm of cervix; Translations: [ENC SCREENING MALIG NEOPLASM CERV] Onset: 04-04-2022 Episodic Results Test Name Value Interpretation Reference Range Facility VC ENDOVENOUS ABL 1ST V RTon 09-19-2022 VC ENDOVENOUS ABL 1ST V RT Patient: LESLY CARSON Exam Date: 09/19/2022 : 1985 Gender:F Ordering : DR TAWANA GALVIN M.D. Admission #: [id number] Family : Order #: [id number] CLICK HERE TO VIEW EXAM RADIOLOGY REPORT PROCEDURE: VEIN CENTER ENDOVENOUS ABLATION FIRST VEIN RIGHT GREAT SAPHENOUS VEIN COMPARISON: None. INDICATIONS: Pain co-occurrent and due to varicose veins of bilateral legs I83.813 OPERATIVE REPORT: The risks and benefits of the procedure had been previously discussed, and were rediscussed at length. Informed written consent was obtained by and Joo orona. Time out procedure was performed. The right lower extremity was prepared and draped in the usual sterile fashion to allow knee flexion in the sterile field. Duplex ultrasound probe was draped in a sterile cover, sterile transmission gel was used. Venous mapping was performed with the areas of dilation and large tributaries marked. The total length was 46 cm from the entry mid calf to 3 cm below the saphenofemoral junction. The diameter of the greater saphenous vein ranged from 4-114mm. A 30 gauge needle and 1% buffered lidocaine was used to anesthetize the entry site. A 4 mm incision was made with a scalpel and the saphenous vein was entered percutaneously under direct ultrasound guidance with a micropuncture set, a single stick was successful in gaining access. A micro-guide wire was inserted and the needle removed. A micro-set including a dilator was inserted over the microwire and the needle and dilator were removed. A 0.018 guide wire was inserted through the micro-set and threaded through the saphenous vein to the saphenofemoral junction. The dilator was removed and an introducer sheath was inserted over the wire until the end of the sheath entered the saphenofemoral junction. The dilator and wire were removed and the 600 micron fiber was introduced and placed and positioned so that it extended beyond the sheath and was 3 cm peripheral to the saphenofemoral femoral junction. Final position of the fiber was determined by ultrasound guidance and duplex imaging. Tumescent anesthetic was delivered by ultrasound guidance. 300 cc of fluid was delivered along the entire course of the saphenous vein. The solution consisted of 500 cc of normal saline with 20mL of 1% lidocaine and 10 mL of sodium bicarbonate. A final positioning check was made. The energy source was turned on by means of the foot pedal and the fiber and sheath were withdrawn. The total number of Joules delivered was 2183. The laser was active for 273 seconds under continuous pulse, average laser use of 8 J. Laser start time 1:50 p.m.. September 19, 2022. Laser stop time 1:55 p.m. September 19, 2022 A duplex ultrasound revealed compressibility and flow at the saphenofemoral junction immediately after the procedure. Hemostasis at the access site was achieved. The skin incision of the saphenous vein was closed with a 4 x 4. A compression stocking was applied. Postop instructions were given. A follow up appointment was recommended and scheduled. The patient tolerated the procedure well and was discharged in good condition. CONCLUSION: 1. Technically successful endovenous laser ablation of the right great saphenous vein. Dictated by: Tawana Galvin MD on 09/19/2022 at 13:57 Approved by: Tawana Galvin MD on 09/19/2022 at 14:36 Normal [facility] VC COMP CONSULTATIONon 08-21 VC COMP CONSULTATION Patient: LESLY CARSON Exam Date: 08/21/2022 : 1985 Gender:F Ordering : SERA ESCOBEDO [facility] Admission #: [id number] Family : Order #: [id number] CLICK HERE TO VIEW EXAM RADIOLOGY REPORT PROCEDURE: VEIN CENTER CONSULTATION VEIN CENTER - OFFICE VISIT INITIAL COMPARISON: None. PROGRESS NOTES: 36-year-old female who presents with a 5 year history of lower extremity pain swelling and dilated veins with multiple episodes of thrombophlebitis. This started during her with her daughter in 2018. At her initial episode of thrombophlebitis she was treated with compression stockings and Tylenol. Subsequently the patient has had several episodes superficial thrombophlebitis but has not been placed a blood thinner, her last episode of superficial thrombophlebitis was 1 month ago. The patient describes aching burning heavy pain new onset of erythema and discoloration of the skin in the past few months. The patient rates the pain as a 9 on a scale of 1-10. The patient's symptoms are markedly exacerbated by prolonged standing required of her job at [employer]. Patient's symptoms are partially relieved by rest, leg elevation, compression stockings and over the counter ibuprofen. The patient has had no prior procedures for treatment. The patient denies any signs and symptoms to suggest arterial ischemia. The patient does exercise by walking 5-6 days week The patient describes a family history significant for type 2 diabetes in her father, type 2 diabetes in 2 brothers breast cancer in her mother. . Past medical history significant for irritable bowel, anxiety disorder, herniated lumbar disc, gastroesophageal reflux disease, asthma and migraine headaches. Past surgical history significant for tonsillectomy, adenoidectomy, tubal ligation in hernia repair. The patient has approximately 10 pack year history of smoking smoking between 1/2 and 1 pack per day for the past 15 years. The patient discontinued smoking 6 weeks ago. Patient does not drink alcohol. The patient does vape marijuana . No history of deep venous thrombus or pulmonary embolus. See separate history and physical for medication list. No prior treatment for varicose or spider veins. The patient has worn compression stockings for 5 years. Nursing notes were reviewed. After history and physical exam I discussed at length the pathophysiology of venous hypertension and possible treatments, therapies and strategies available. We discussed at length the importance of elevating the lower extremities above the level of the heart, increased physical activity and compression stocking use. We discussed conservative therapy with bilateral thigh-high compression stockings which I recommended she wear continuously for the rest of her life the significant severe right and [id number]-[id number] deep vein reflux. We discussed surgical interventions of ligation and stripping and phlebectomy. We discussed intravenous laser ablation and micro foam chemical ablation at length. Risks benefits and alternatives were discussed and the patient's questions were answered Ultrasound venous reflux study performed the same day was discussed at length with the patient. The report demonstrates severe bilateral great saphenous vein venous insufficiency and dilatation with saphenofemoral junction reflux . Mild right small saphenous vein venous insufficiency with dilatation and multiple associated incompetent varicose veins. Bilateral extensive incompetent varicose veins PHYSICAL EXAM: The right leg demonstrates multiple large varicose veins and reticular veins. Multiple areas of skin discoloration consistent with hemosiderin staining. No areas of active ulceration . Mild subcutaneous edema of the ankle. The left leg demonstrates multiple large varicose and reticular veins. No areas of skin discoloration. Mild subcutaneous edema of ankle Both thighs, legs and feet were symmetrically warm to the touch. Good posterior tibial and dorsalis pedis pulses were present bilaterally. IMPRESSION: 1. Severe bilateral great saphenous vein and mild right small saphenous vein venous insufficiency with dilatation 2. Multiple very large in comp lower extremity varicose veins 3. Mild bilateral ankle subcutaneous edema 4. No definite flow significant arterial disease 5. CEAP: C4a, Eps, Asp, Pr PLAN: 1. Endovenous laser ablation right great saphenous vein followed by left great saphenous vein possible ablation of the right small saphenous vein 2. Bilateral micro foam chemical ablation of large incompetent branch saphenous varicose veins 3. Use of bilateral thigh-high 20-30 mm compression stockings for extensive deep vein reflux 4. Elevated legs and continued physical activity for symptomatic relief Nurse notes, history and physical were reviewed and confirmed, see attached forms. The nurse (more content not included)... Normal [facility] VC VENOUS REFLUX FIDEL LMTon 0 08-21-2022 VC VENOUS REFLUX FIDEL LMT Patient: LESLY CARSON Exam Date: 08/21/2022 : 1985 Gender:F Ordering : SERA ESCOBEDO [facility] Admission #: [id number] Family : Order #: [id number] CLICK HERE TO VIEW EXAM RADIOLOGY REPORT PROCEDURE: VEIN CENTER ULTRASOUND VENOUS REFLUX BILATERAL LIMTED COMPARISON: None. INDICATIONS: Varicose veins of lower extremity I83.893 TECHNIQUE: Duplex imaging of the lower extremity to assess the deep and superficial venous system for the presence of deep or superficial venous incompetence and to document the location and severity of disease. The study includes evaluation of the great saphenous vein (GSV), anterior accessory saphenous vein (AASV) and small saphenous vein (SSV). Patient scanned in reverse Trendelenburg and standing. FINDINGS: RIGHT LOWER EXTREMITY: Saphenofemoral Junction Reflux: Yes 20.0mm 4.8 sec GSV: Diam (mm) Reflux/ Time (sec) Proximal Thigh 14.3 Yes 4.8 Mid Thigh 5.8 Yes 0.8 Distal Thigh 4.3 Yes 0.8 Prox Calf 7.6 Yes 3.8 Mid Calf 5.2 Yes 1.2 Saphenopopliteal Junction Reflux: 5.9mm Yes 0.5 SSV: Proximal Calf 6.2 Yes 0.5 Mid Calf 4.9 Yes 0.4 AASV: Not present Thrombi: No acute or chronic thrombus. Compressibility: Normal. Flow: Severe deep venous reflux. Preforator: Dist/med lower leg 3.7 mm with 3.9s reflux. Mid medial lower leg 5.3 mm with 1.4s reflux. Tech Note: Incompetent SFJ, GSV, SPJ, and SSV. Incompetent varicose vein proximal medial lower leg measures 6.1 mm with 4.9s reflux. Varicosity proximal/medial thigh off of GSV measures 14.2 mm with 1.9s reflux. Distal medial thigh varicosity measures 8.7 mm with 1.8s reflux. Varicose vein proximal posterior calf off SSV measures 4.6 mm with 3.9s reflux. Medial anterior knee varicosity measures 4.6 mm with 0.9s reflux. LEFT LOWER EXTREMITY: Saphenofemoral Junction Reflux: Yes 12.1 mm 5.0 sec GSV: Diam (mm) Reflux/Time (sec) Proximal Thigh 11.9 Yes 4.6 Mid Thigh 8.2 Yes 4.3 Distal Thigh 13.4 Yes 4.1 Prox Calf 6.8 Yes 1.5 Mid Calf 5.9 Yes 4.9 Saphenopopliteal Junction Relux: 6.1 mm No SSV: Proximal Calf 4.3 Yes 0.4 Mid Calf 4.5 Yes 0.3 AASV: Not present Thrombi: No acute or chronic thrombus. Compressibility: Normal. Flow: Mild deep venous reflux. Toxicologist: Dist/medial lower leg 5.1 mm with 0.7s reflux. Tech Note: Incompetent SFJ and GSV. Incompetent varicose vein proximal medial lower leg measures 9.9 mm with 4.8s reflux. Proximal medial lower leg varicosity measures 6.2 mm with 2.6s reflux. Medial knee varicose vein measures 4.3 mm with 2.7s reflux. Varicose vein mid medial lower leg measures 5.3 mm with 1.7s reflux. CONCLUSION: 1. Severe bilateral great saphenous vein venous insufficiency and dilatation with extensive saphenous femoral junction reflux 2. Mild right small saphenous vein venous insufficiency with dilatation and associated incompetent varicose veins 3. Severe right and mild left deep vein reflux 4. Bilateral incompetent varicose veins Dictated by: Tawana Galvin MD on 08/21/2022 at 10:11 Approved by: Tawana Galvin MD on 08/21/2022 at 10:14 Normal [facility] US MINESH DOP LEG RTon 08-04-19 23 US MINESH DOP LEG RT EXAMINATION: US MINESH DOP LEG RT HISTORY: Disorder of soft tissue COMPARISON: No relevant comparison available. TECHNIQUE: Grayscale, color and Doppler ultrasound FINDINGS: Region: Right leg Thrombus: None Flow: Normal Augmentation: Normal Compressibility: Normal Other: Multiple varicose vein catheter IMPRESSION: No deep or superficial vein thrombus identified *Exam performed in accordance with AIUM practice guidelines- Peripheral venous ultrasound, July 22, 2009. Electronically authenticated by: TAWANA GALVIN Date: 2022-08-03 12:06 Normal [facility] CULTURE URINEon 07-09-2022 CULTURE URINE Culture Observations : LIGHT GROWTH OF MIXED GENITAL CANDICE. NO POTENTIAL PATHOGENS SEEN. Normal [facility] Comment on above: Performed By: #### U RCX #### [facility] [address] [address] [address] Mireya Parada [facility]on 06-26 SARS-CoV-2 (COVID-19) RNA ESTHER+probe Ql (Unsp spec) Not detected Normal NOT DETECTED [facility] Comment on above: Result Comment: When diagnostic testing is negative, the possibility of a false negative should be considered in the context of a patient's recent exposures and the presence of clinical signs and symptoms consistent with SARS-CoV-2. This test is not yet approved or cleared by the [place] FDA. When there are no FDA-approved or cleared tests available, and other criteria are met, FDA can make tests available under an emergency access mechanism called an Emergency Use Authorization (EUA). The EUA for this test is supported by the [employer] of Health and Human Service's declaration that circumstances exist to justify the emergency use of in vitro diagnostics for the detection and/or diagnosis of the virus that causes COVID-19. This EUA will remain in effect for the duration of the COVID-19 declaration justifying emergency of IVDs, unless it is terminated or revoked by the FDA (after which the test may no longer be used). Performed By: #### U RCX #### [facility] [address] [address] [address] Mireya Parada ER URINE PROFILEon 03-14-202 3 Bilirubin Ql (U) SMALL Abnormal NEGATIVE The [facility] Comment on above: Performed By: #### U RCX #### [facility] [address] [place] [address] Dr. Mireya Parada Clarity (U) CLEAR Normal CLEAR [facility] Comment on above: Performed By: #### U RCX #### [facility] [address] [place] [address] Dr. Mireya Parada Color (U) YELLOW Normal YELLOW [facility] Comment on above: Performed By: #### U RCX #### [facility] [address] [place] [address] Dr. Mireya BAI A micrscopic examination will be performed if indicated. Normal [facility] Comment on above: Performed By: #### U RCX #### [facility] [address] [place] [address] Dr. Mireya Parada Glucose Ql (U) Negative Normal NEGATIVE The [facility] Comment on above: Performed By: #### U RCX #### [facility] [address] [place] [address] Dr. Mireya Parada Hemoglobin Ql (U) SMALL Abnormal NEGATIVE The [facility] Comment on above: Performed By: #### U RCX #### [facility] [address] [place] [address] Dr. Mireya Parada Ketones Ql (U) Negative Normal NEGATIVE The [facility] Comment on above: Performed By: #### U RCX #### [facility] [address] [place] [address] Dr. Mireya Parada LEUKOCYTES TRACE Abnormal NEGATIVE [facility] Comment on above: Performed By: #### U RCX #### [facility] [address] [place] [address] Dr. Mireya Parada Nitrite Ql (U) Negative Normal NEGATIVE [facility] Comment on above: Performed By: #### U RCX #### [facility] [address] [place] [address] Dr. Mireya Parada pH (U) 6.0 [pH] Normal 5-9 [facility] Comment on above: Performed By: #### U RCX #### [facility] [address] [place] [address] Dr. Mireya Parada SPEC GRAVITY 1.025 Normal 1.005-<=1.025 The [facility] Comment on above: Performed By: #### U RCX #### [facility] [address] [place] [address] Dr. Mireya Parada UA PROTEIN TRACE Normal NEGATIVE/ TRACE The [facility] Comment on above: Performed By: #### U RCX #### [facility] [address] [place] [address] Dr. Mireya Parada UR MICRO IND INDICATED Normal [facility] Comment on above: Performed By: #### U RCX #### [facility] [address] [place] [address] Dr. Miryea Parada Urobilinogen Qn (U) 0.2 {Tarun'U}/dL Normal 0.2 - 1. 0 [facility] Comment on above: Performed By: #### U RCX #### [facility] [address] [place] [address] Dr. Mireya Parada GROUP A STREP CULTUREon 06-26 S. pyogenes Ag Ql (Unsp spec) Culture Observations: NEGATIVE FOR GROUP A STREPTOCOCCUS. Normal [facility] Comment on above: Performed By: #### G RASTCX, SSCRN #### [facility] [address] [place] [address] Dr. Mireya Parada INFLUENZA A AND B AGon 07-09 INFLUANEGH SEE BELOW Normal [facility] Comment on above: Result Comment: Nega tive for Flu A protein angiten. Infection due to Flu A cannot be ruled out. Flu A angiten in the sample may be below the detection limit of the test. Performed By: #### I NFLUAB #### [facility] [address] [place] [address] Dr. Mireya Parada INFLUBNEGH SEE BELOW Normal [facility] Comment on above: Result Comment: Nega tive for Flu B protein antigen. Infection due to Flu B cannot be ruled out. Flu B antigen in the sample may be below the detection limit of the test. Performed By: #### I NFLUAB #### [facility] [address] [place] [address] Dr. Mireya Parada INFLUENZA A AG Negative Normal NEGATIVE SEE COMMENT [facility] Comment on above: Performed By: #### I NFLUAB #### [facility] [address] [address] [address] Mireya Parada INFLUENZA B AG Negative Normal NEGATIVE SEE COMMENT [facility] Comment on above: Performed By: #### I NFLUAB #### [facility] [address] [place] [address] Dr. Mireya Parada STREPT SCREENon 07-09-2022 STREP SCREEN A Negative Normal NEGATIVE The [facility] Comment on above: Performed By: #### G RASTCX, SSCRN #### [facility] [address] [place] [address] Dr. Mireya Parada URINE MICROSCOPIC ONLYon BACTERIA TRACE Abnormal NONE SEEN The [facility] Comment on above: Performed By: #### U RCX #### [facility] [address] [place] [address] Dr. Mireya Parada Bacteria identified Cx Nom (U) INDICATED Normal [facility] Comment on above: Performed By: #### U RCX #### [facility] [address] [place] [address] Dr. Mireya Parada CAST NONE SEEN Normal NONE SEEN The [facility] Comment on above: Performed By: #### U RCX #### [facility] [address] [place] [address] Dr. Mireya Parada Crystals LM Nom (Urine sed) NONE SEEN Normal NONE SEEN The [facility] Comment on above: Performed By: #### U RCX #### [facility] [address] [place] [address] Dr. Mireya Parada Epithelial cells LM Ql (Urine sed) FEW Abnormal NONE SEEN /RARE [facility] Comment on above: Performed By: #### U RCX #### [facility] [address] [place] [address] Dr. Mireya Parada MUCOUS TRACE Abnormal NONE SEEN The [facility] Comment on above: Performed By: #### U RCX #### [facility] [address] [address] [address] Mireya Parada RBC 0-2 Normal 0-2 [facility] Comment on above: Performed By: #### U RCX #### [facility] [address] [address] [address] Mireya Parada WBC 0-2 Abnormal NONE SEEN [facility] Comment on above: Performed By: #### U RCX #### [facility] [address] [address] [address] Mireya Parada PAP ACOG PANEL 2: 30 to 65on 04-13-2022 . . Normal [facility] Comment on above: Result Comment: Perf ormed at: WB Performed By: #### [id number] #### [facility] [address] [place] [address] Dr. Mireya Parada Age Gdln ACOG Testing 30-65 Normal [facility] Comment on above: Performed By: #### [id number] #### [facility] [address] [place] [address] Dr. Mireya Parada DIAGNOSIS: Comment Normal [facility] Comment on above: Result Comment: NEGA TIVE FOR INTRAEPITHELIAL LESION OR MALIGNANCY. Performed at: WB Performed By: #### [id number] #### [facility] [address] [place] [address] Dr. Mireya Parada HPV Aptima Negative Normal Negative [facility] Comment on above: Result Comment: This nucleic acid amplification test detects fourteen high-risk HPV types (16,18,31,33,35,39,45,51,52,56,58,59,66,68) without differentiation. Performed at: =G Performed By: #### [id number] #### [facility] [address] [place] [address] Dr. Mireya Parada HPV Genotype Reflex Comment Normal [facility] Comment on above: Result Comment: Crit eria not met, HPV Genotype not performed. Performed at: WB Performed By: #### [id number] #### [facility] [address] [place] [address] Dr. Mireya Parada Methodology: Comment Normal [facility] Comment on above: Result Comment: This liquid based ThinPrep(R) pap test was screened with the use of an image guided system. Performed at: WB Performed By: #### [id number] #### [facility] [address] [address] [address] Mireya Parada Note: Comment Normal [facility] Comment on above: Result Comment: The Pap smear is a screening test designed to aid in the detection of premalignant and malignant conditions of the uterine cervix. It is not a diagnostic procedure and should not be used as the sole means of detecting cervical cancer. Both false-positive and false-negative reports do occur. . Performed at: WB Performed By: #### [id number] #### [facility] [id number] Mireya Parada Performed by: Comment Normal [facility] Comment on above: Result Comment: Marie Haney, Index Editor (ASCP) Performed at: WB Performed By: #### [id number] #### [facility] [address] [address] [address] Mireya Parada Specimen adequacy: Comment Normal [facility] Comment on above: Result Comment: Sati sfactory for evaluation. Endocervical and/or squamous metaplastic cells (endocervical component) are present. Performed at: WB Performed By: #### [id number] #### [facility] [address] [address] [address] Mireya Parada MG MAMM DIAGNOSTIC 3D FIDEL CA Don 04-12-2022 MG MAMM DIAGNOSTIC 3D FIDEL CAD Patient: LESLY CARSON Exam Date: 04/12/2022 : 1985 Gender:F Ordering : DR ALISSON PETTY . Admission #: [id number] Family : Order #: [id number] CLICK HERE TO VIEW EXAM RADIOLOGY REPORT PROCEDURE: MAMMOGRAM DIAGNOSTIC 3D BILATERAL CAD, 04/12/2022, 13:50 ULTRASOUND BREAST LEFT LIMITED, 04/12/2022, 14:56 COMPARISON: None. INDICATIONS: Lump in upper outer quadrant of left breast Calculator Name NCI Breast Cancer Risk Assessment Tool 5 Year Breast Cancer Risk 0.60% Lifetime Breast Cancer Risk 19.70% Personal Breast Cancer No Personal Ovarian Cancer No Treatments None Family Cancers Mother with breast cancer at age 62; Aunt-paternal with breast cancer at age 65; Cousin-paternal with cervical cancer at age 40. LOCATION: [facility] BREAST COMPOSITION: Scattered areas fibroglandular density. FINDINGS: DIAGNOSTIC CATEGORY 2--BENIGN FINDING: RIGHT BREAST: No significant suspicious finding. LEFT BREAST: Skin surface marker localizes patient's palpable lump to the para areolar lower-outer quadrant. Subtle 4 mm opacity/nodule deep to this area. Ultrasound evaluation of this area demonstrates a 4 x 3 by 2 mm area which likely corresponds to the mammographic findings, which appears represent a confluence of para areolar ducts. No appreciable mass or debris within the ducts; no significant dilation of the ducts. Clinical follow-up recommended with additional imaging performed of symptoms or size of palpable area increases. RECOMMENDATIONS: CLINICAL EVALUATION. PLEASE NOTE: A NORMAL MAMMOGRAM DOES NOT EXCLUDE THE POSSIBILITY OF BREAST CANCER. A CLINICALLY SUSPICIOUS PALPABLE LUMP SHOULD BE BIOPSIED. Dictated by: Sebastian Garrett M.D. on 04/12/2022 at 15:01 Approved by: Sebastian Garrett M.D. on 04/12/2022 at 15:09 Normal [facility] US BREAST LEFT LIMITEDon US BREAST LEFT LIMITED Patient: LESLY CARSON Exam Date: 04/12/2022 : 1985 Gender:F Ordering : DR ALISSON PETTY . Admission #: [id number] Family : Order #: [id number] CLICK HERE TO VIEW EXAM RADIOLOGY REPORT PROCEDURE: MAMMOGRAM DIAGNOSTIC 3D BILATERAL CAD, 04/12/2022, 13:50 ULTRASOUND BREAST LEFT LIMITED, 04/12/2022, 14:56 COMPARISON: None. INDICATIONS: Lump in upper outer quadrant of left breast Calculator Name NCI Breast Cancer Risk Assessment Tool 5 Year Breast Cancer Risk 0.60% Lifetime Breast Cancer Risk 19.70% Personal Breast Cancer No Personal Ovarian Cancer No Treatments None Family Cancers Mother with breast cancer at age 62; Aunt-paternal with breast cancer at age 65; Cousin-paternal with cervical cancer at age 40. LOCATION: [facility] BREAST COMPOSITION: Scattered areas fibroglandular density. FINDINGS: DIAGNOSTIC CATEGORY 2--BENIGN FINDING: RIGHT BREAST: No significant suspicious finding. LEFT BREAST: Skin surface marker localizes patient's palpable lump to the para areolar lower-outer quadrant. Subtle 4 mm opacity/nodule deep to this area. Ultrasound evaluation of this area demonstrates a 4 x 3 by 2 mm area which likely corresponds to the mammographic findings, which appears represent a confluence of para areolar ducts. No appreciable mass or debris within the ducts; no significant dilation of the ducts. Clinical follow-up recommended with additional imaging performed of symptoms or size of palpable area increases. RECOMMENDATIONS: CLINICAL EVALUATION. PLEASE NOTE: A NORMAL MAMMOGRAM DOES NOT EXCLUDE THE POSSIBILITY OF BREAST CANCER. A CLINICALLY SUSPICIOUS PALPABLE LUMP SHOULD BE BIOPSIED. Dictated by: Sebastian Garrett M.D. on 04/12/2022 at 15:01 Approved by: Sebastian Garrett M.D. on 04/12/2022 at 15:09 Normal [facility] Lab Reportson 05-07-2021 Lab Reports [id number] 0CD:127 [facility] Letter [facility] May 07, 2021 SERA ESCOBEDO, [address], [place] [address] Re: LESLY CARSON Date of : 1985 Thank you for your referral of Lesly Carson who was seen on consultation on 05/02/2021, for sebaceous cyst Lt scapula. I have enclosed my consultation note for your review. I will be happy to follow Lesly. Sincerely, Tc Yang MD General Surgery [facility] Ambulatory Clinical Summaryo n 05-02-2021 Ambulatory Clinical Summary {[id number] [facility] Physician Referralon 021 Physician Referral [id number] 0CD:127 [facility] HCG,Urineon 07-12-2020 Beta HCG ( test) Ql (U) Negative Normal [facility] Comment on above: Result Comment: PERF ORMED BY: [place] [address] PATHOLOGIST CORPORATE ASSOCIATE ATTORNEY DUGLAS SANDOVAL M.D. Performed By: #### U HCG #### [facility] [address] Urine human chorionic gonado tropin (hCG) detection by immunoassayon 07-12-2020 HCG ( test) Ql (U) Negative [facility] Urine human chorionic gonado tropin (hCG) detection by immunoassayon 06-14-2020 HCG ( test) Ql (U) Negative [facility] Urine human chorionic gonado tropin (hCG) detection by immunoassayon 05-03-2020 HCG ( test) Ql (U) Negative [facility] Vital Signs Date Time Vital Sign Value Performing Clinician Faci lity 07-12-2020 12:09-0400 BP Diastolic 57 mm[Hg] [facility] 07-12-2020 12:09-0400 BP Systolic 106 mm[Hg] [facility] 07-12-2020 12:09-0400 Pulse (Heart Rate) 77 /min [facility] 07-12-2020 12:09-0400 Pulse Oximetry 97 % [facility] 07-12-2020 12:09-0400 Respiratory Rate 20 /min [facility] 07-12-2020 10:59-0400 BMI (Body Mass Index) 41.8 kg/m2 [facility] 07-12-2020 10:59-0400 Body weight 136.07 kg [facility] 07-12-2020 10:59-0400 Height 180.34 cm [facility] 06-14-2020 10:48-0500 BP Diastolic 75 mm[Hg] [facility] 06-14-2020 10:48-0500 BP Systolic 126 mm[Hg] [facility] 06-14-2020 10:48-0500 Pulse (Heart Rate) 77 /min [facility] 06-14-2020 10:48-0500 Pulse Oximetry 97 % [facility] 06-14-2020 10:48-0500 Respiratory Rate 18 /min [facility] 06-14-2020 09:48-0500 BP Diastolic 75 mm[Hg] [facility] 06-14-2020 09:48-0500 BP Systolic 126 mm[Hg] [facility] 06-14-2020 09:48-0500 Pulse (Heart Rate) 77 /min [facility] 06-14-2020 09:48-0500 Pulse Oximetry 97 % [facility] 06-14-2020 09:48-0500 Respiratory Rate 18 /min [facility] 06-14-2020 09:15-0500 BMI (Body Mass Index) 42.3 kg/m2 [facility] 06-14-2020 09:15-0500 Body Temperature 98.5 [degF] [facility] 06-14-2020 09:15-0500 Body weight 137.43 kg [facility] 06-14-2020 09:15-0500 Height 180.34 cm [facility] 06-14-2020 08:15-0500 BMI (Body Mass Index) 42.3 kg/m2 [facility] 06-14-2020 08:15-0500 Body Temperature 98.5 [degF] [facility] 06-14-2020 08:15-0500 Body weight 137.43 kg [facility] 06-14-2020 08:15-0500 Height 180.34 cm [facility] 05-03-2020 12:12-0500 BP Diastolic 79 mm[Hg] [facility] 05-03-2020 12:12-0500 BP Systolic 111 mm[Hg] [facility] 05-03-2020 12:12-0500 Pulse (Heart Rate) 75 /min [facility] 05-03-2020 12:12-0500 Pulse Oximetry 97 % [facility] 05-03-2020 12:12-0500 Respiratory Rate 18 /min [facility] 05-03-2020 11:21-0500 BMI (Body Mass Index) 43 kg/m2 [facility] 05-03-2020 11:21-0500 Body weight 140.16 kg [facility] 05-03-2020 11:21-0500 Height 180.34 cm [facility] 05-03-2020 11:12-0500 BP Diastolic 79 mm[Hg] [facility] 05-03-2020 11:12-0500 BP Systolic 111 mm[Hg] [facility] 05-03-2020 11:12-0500 Pulse (Heart Rate) 75 /min [facility] 05-03-2020 11:12-0500 Pulse Oximetry 97 % [facility] 05-03-2020 11:12-0500 Respiratory Rate 18 /min [facility] 05-03-2020 10:21-0500 BMI (Body Mass Index) 43 kg/m2 [facility] 05-03-2020 10:21-0500 Body weight 140.16 kg [facility] 05-03-2020 10:21-0500 Height 180.34 cm [facility] Encounters Encounter Date Encounter Type Care Provider Facility Start: 04-09-2023 End: 04-09-2023 ambulatory MOON NASSAR Not Available Start: 09-19-2022 End: 09-20-[address] TAWANA GALVIN Facility:[facility] Start: 08-21-2022 End: 08-22-2022 ambulatory SERA ESCOBEDO Facility:[facility] Start: 08-03-2022 End: 08-04-2022 ambulatory SERA ESCOBEDO Facility:[facility] Start: 07-09-2022 End: 07-09-2022 ambulatory SERA ESCOBEDO Facility:[facility] Start: 04-12-2022 End: 04-13-2022 ambulatory SERA ESCOBEDO Facility:[facility] Start: 04-04-2022 End: 04-04-2022 ambulatory SERA ESCOBEDO Facility:[facility] Start: 07-12-2020 End: 07-12-2020 Admission to day surgery [facility] Waldrop [facility] Start: 06-14-2020 End: 06-14-2020 Admission to day surgery Jf Waldrop [facility] Start: 05-03-2020 End: 05-03-2020 Admission to day surgery Sundar Nunez [facility] Start: 02-18-2020 End: 02-18-2020 Patient encounter procedure Sundar Nunez -[facility] Procedures Date Procedure Procedure Detail Performing Clinician Start: 07-12-2020 Injection of local a nesthetic into sacroiliac joint Jf Benjie Start: 06-14-2020 Injection of spinal epidural space Jf Benjie Start: 05-03-2020 Local anesthetic lum bar facet joint nerve block Sundar Nunez Start: 02-18-2020 XR pre/post mri xray Porfirio Walker Start: 02-18-2020 MR lumbar spine wo con Sundar Nunez Plan of Treatment Date Care Activity Detail Author Patient Education Benjie Non Diagnostic Blo ck [facility] Patient referral [facility] Payers Date Payer Category Payer Unknown [id number] 1985 Unknown [id number] 1985 Unknown [id number] .16.84 [id number] 1985 Unknown [id number] .16.84 [id number] 1985 Unknown [id number] 1985 Unknown [id number] .16.84 [id number] 1985 Unknown [id number] 1959 Unknown [id number] 1958 Unknown [id number] Self-pay Self Pay [id number] Social History Date Type Detail Facility Start: 05-03-2020 End: 06-14-2020 Tobacco smoking status NHIS Smoker (finding) [facility] Start: 1985 Sex Assigned At Female [facility] Goals Date Patient Goal Desired Activity /State Clinical Note 05-02-2021 Note Date & Type Note Facility 05-02-2021 Note Chief Complaint consultation for sebaceous cyst HPI Staff 35 year old female presents on consultation for Alba Ecsobedo for sebaceous cyst left scapula. Present many years. Has never been on antibiotic for this in the past. Never opened or drained. Boyfriend recently manipulated area which created significant redness, swelling and pain. 04/25- prescribed Keflex 500mg two BID x 10 days. States she is taking this as prescribed and has 3-4 days remaining. Verbalized improvement in redness and swelling. Pain has not changed. History of Present Illness 35 yo female referred for possible sebaceous cyst left back; inflamed, began Keflex 1 week ago; no asa or NSAID use. decreased erythema but still area of swelling and pain; reports that it began as small pimple in the skin, no nodule present in area in the past; her boyfriend recently squeezed the pimple and it became markedly inflamed. no spontaneous drainage, no h/o similar problems in past. no fevers. Review of Systems PHQ Score Initial Depression Screen Score: 0 ROS - Provider Constitutional: no fever, no sweats, no weight loss. Eyes: no glasses, no blurred vision, no visual loss. ENMT: no dentures, no hoarseness, no swallowing difficulties, no hearing loss, no ear infection(s), no nose bleeds. Cardiovascular: normal blood pressure, no chest pain, regular heartbeat, no heart murmur. Respiratory: no shortness of breath, no cough, no asthma, no wheezing. Gastrointestinal: no nausea, no vomiting, no diarrhea, no constipation, no blood in stool, no change in bowel habits, no abdominal pain, no hepatitis. Genitourinary: no kidney stones, no urine infection, no dysuria. Musculoskeletal: no pain, no weakness. Skin: no changing moles, no rash, no skin lumps. Neurologic: no seizures, no epilepsy, no headache. Psychiatric: no emotional or psychiatric problem. Heme/Lymph: no bleeding problems, no anemia, no blood clots, no transfusions. Allergy/Immunologic: no swollen lymph nodes/glands, no IV drug abuse. Other: Additional ROS info: Except as noted in the above Review of Systems and in the History of Present Illness, all other systems have been reviewed and are negative or noncontributory. Physical Exam Vitals & Measurements T: 36.4 ?C(Temporal Artery) HR: 76(Peripheral) RR: 16 BP: 112/76 HT: 180.3 cm HT: 180.34 cm WT: 129.6 kg WT: 129.6 kg BMI: 39.85 HEENT: normal conjunctiva, sclera clear, no scleral icterus, EOM intact, PERRLA, oral mucosa moist without lesions. Neck: trachea midline, no mass, symmetric, no thyromegaly or nodules, no adenopathy Lymphatic: no cervical adenopathy, Musculoskeletal: normal gait, digits and nails without infection, nodes, cyanosis, clubbing. Skin: no rashes, no lesions, no ulcers, 4 cm area of fluctuance, erythema; tender, no surrounding cellulitis; no open areas. Psychiatric/Neuro: oriented to time, place, person, judgement normal, affect appropriate for age, insight intact, no focal deficits. Tests: review of old records completed, Discussed surgical options, risks, and possible complications with patient. Assessment/Plan 1. Carbuncle of back (L02.232: Carbuncle of back [any part, except buttock]) superficial abscess drained under local anesthesia, cx obtained, tolerated well; packed with small piece of 1/2 inch iodophor gauze; remove dressing and packing tomorrow, wash with soap and water, cover with gauze; repeat daily until healed/scabbed over; follow up in 10 days if not resolving; call sooner if problems/questions. Ordered: Wound Culture Follow-up No qualifying data available Problem List/Past Medical History Ongoing Anxiety and depression Asthma BMI 39.0-39.9,adult Carbuncle of back Displacement of lumbar disc with radiculopathy GERD (gastroesophageal reflux disease) IBS (irritable bowel syndrome) Sebaceous cyst Umbilical hernia Historical No qualifying data Procedure/Surgical History Repair of umbilical hernia (04/28/2018), Tonsillectomy, Tubal ligation. Medications albuterol HFA 90 mcg/inh MDI, 2 puff(s), Inhalation, QID, PRN Keflex 500 mg Cap, 1000 mg= 2 cap(s), Oral, BID Zoloft 50 mg Tab, 50 mg= 1 tab(s), Oral, Daily Allergies No Known Allergies No Known Medication Allergies Social History Alcohol - Denies Alcohol Use, 05/02/2021 Substance Abuse Current, Marijuana, Daily, 05/02/2021 Tobacco 5-9 cigarettes (between 1/4 to 1/2 pack)/day in last 30 days Tobacco Use:. Smokeless tobacco user within last 30 days Smokeless Tobacco Use:. Cigarettes, Started age 14.0 Years. Yes, 05/02/2021 Family History Asthma: Mother. Clotting disorder: Sister and Brother. Diabetes mellitus type 2: Father and Brother. Hyperlipidemia: Father. Hypertension: Father. Primary malignant neoplasm of female breast: [facility] Comment on above: Result Comment: Elec tronically Signed By: PETER ZAVALA, Tc Varner\Date and Time Signed: 05/02/21 16:58 EST Advance Directives No Advanced Directives Records Found Advance Directive Response Recorded Date/ Time Advance Directives No February 02, 2020 11:38am Advance Directive Response Recorded Date/ Time Advance Directives No February 02, 2020 12:38pm Chief Complaint and Reason for Visit Chief Complaint m54.16 Back Pain Chief Complaint Back Pain Back Pain Chief Complaint Back Pain Back Pain Back Pain Assessments No Assessments Information AvailableNo Assessments Information AvailableNo Assessments Information Available Family History No Family History Records Found Relationship Condition Age at Onset Recorded Date/T consuelo father Diabetes mellitus Unknown Hypertension Unknown Heart disease Unknown Cerebrovascular accident (CVA) Unknown Not Specified Malignant neoplasm Unknown Summary Purpose Additional Source Comments INFORMATION SOURCE (unrecogn ized section and content) DATE CREATED AUTHOR 06/18/2021 [facility] DATE CREATED AUTHOR AUTHOR'S ORGANIZ ATION 07/15/2021 [facility] DATE CREATED AUTHOR AUTHOR'S ORGANIZ ATION 10/04/2022 [facility] DATE CREATED AUTHOR AUTHOR'S ORGANIZ ATION 04/11/2023 [facility] EPIC FOR RECORDS PERTAINING TO PATIENTS WHO ARE OR HAVE BEEN ENROLLED IN A CHEMICAL DEPENDENCY/SUBSTANCEABUSE PROGRAM, SOME INFORMATION MAY BE OMITTED. This clinical summary was aggregated from multiple sources. Caution should be exercised in using it in the provision of clinical care. This summary normalizes information from multiple sources, and as a consequence, information in this document may materially change the coding, format and clinical context of patient data. In addition, data may be omitted in some cases. CLINICAL DECISIONS SHOULD BE BASED ON THE PRIMARY CLINICAL RECORDS. [facility]. provides no warranty or guarantee of the accuracy or completeness of information in this document.
[2023-05-02 09:20] LABS: Bilirubin Urine SMALL (NEGATIVE); Blood Urine LARGE (NEGATIVE); Glucose Urine UA NEGATIVE (NEGATIVE); Ketones Urine 40 mg/dL (NEGATIVE); Leukocyte Esterase Urine NEGATIVE (NEGATIVE); Nitrite Urine NEGATIVE (NEGATIVE); Protein Urine NEGATIVE (NEG/TRACE); Specific Gravity Urine >=1.030 (1.005-1.025); Urobilinogen Urine 0.2 EU/dL (0.2-1.0); pH Urine 5.5 (5.0-9.0)
[2023-05-02 09:33] LABS: Clarity Urine SLIGHTLY CLOUDY (CLEAR); Color Urine YELLOW (YELLOW); Urine Microscopic Indicated YES
[2023-05-02 09:35] LABS: Bacteria Urine NONE SEEN #/HPF (NONE SEEN); Mucus Urine SMALL (NONE SEEN); WBC Urine NONE SEEN #/HPF (NONE SEEN)
[2023-05-02 09:36] LABS: Cast Seen? SEEN #/LPF (NONE SEEN); Crystals Seen? None Seen #/HPF (None Seen); Hyaline Casts Urine RARE; Squamous Epithelial Cell Urine FEW #/LPF (NONE/RARE); Urine Culture Indicated NO
[2023-05-02 09:43] LABS: Alanine Aminotransferase 38 U/L (14-59); Albumin Globulin Ratio 0.9; Albumin Level 3.4 g/dL (3.4-5.0); Alkaline Phosphatase 80 U/L (46-116); Anion Gap 11.2; Aspartate Amino Transferase 31 U/L (15-37); BUN Creatinine Ratio 11.4; Bilirubin Total 0.5 mg/dL (0.2-1.0); Calcium 9.4 mg/dL (8.5-10.1); Carbon Dioxide 26.1 mmol/L (21.0-32.0); Chloride 101 mmol/L (98-107); Estimated GFR (African America >60 (>=60); Estimated GFR (Non-African Ame >60 (>=60); Globulin 3.6 g/dL; Glucose 111 mg/dL (74-106); Potassium 3.3 mmol/L (3.5-5.1); Sodium 135 mmol/L (136-145)
[2023-05-02] MEDS: POTASSIUM BICARBONATE/CIT 25 MEQ TABLET EFF 50 MEQ PO (10:31)
[2023-05-02] MEDS: 0.9 % SODIUM CHLORIDE 1,000 ML 1000 ML IV (10:31)
[2023-05-02] MEDS: DICYCLOMINE HCL 20 MG/2 ML VIAL IM (10:32)
[2023-05-02 10:33] VITALS: BP 125/79; PULSE 70; RESP 20; O2SAT 94
--- NOTE | 2023-05-02 10:33 | ED_ITS ---
HPI - General Adult General Chief complaint: Nausea/Vomiting/Diarrhea Stated complaint: FLU LIKE SYMPTOMS Time Seen by Provider: 05/02/23 08:55 Source: patient Mode of arrival: walk-in History of Present Illness HPI narrative: Patient is a 37-year-old female who is presenting to the Emergency Room with chief complaint of 2-3 days of nausea, vomiting, diarrhea. Patient's having abdominal cramping. Patient is currently on her menses. Patient works at [employer]. There is been multiple sick coworkers with flulike symptoms at [employer]. She has mild lightheaded dizziness, no headache. No chest pain. No neck pain, shortness of breath. Positive nausea vomiting, emesis as being clearish greenish. No hematemesis, melena, hematochezia. Patient states she began having loose stools every few hours. Patient has not been able to keep any fluids down the last couple days. No other acute complaints. No recent traveling. No new antibiotics. No water source changes. . All systems are negative except as noted/marked. All systems reviewed and otherwise negative. . Nurses note and vital signs reviewed and patient is not hypoxic. General: The patient appears well and in no apparent distress. Patient is resting comfortably on cart. Patient is not toxic, lethargic, or listless Skin: Warm, dry, no pallor noted. There is no rash noted. No petechiae, purpura. Head: Normocephalic, atraumatic Eye: Normal conjunctiva, no drainage, EOMI. PERRL Ears, Nose, Mouth, and Throat: oral mucosa is moist. Nares patent. Mouth without vesicles. Cardiovascular: Regular Rate and Rhythm, no murmur, gallop, rub Respiratory: Patient is in no distress, no accessory muscle use, lungs are clear to auscultation, no wheezing, rales or rhonchi Back: non-tender, no CVA tenderness bilaterally to percussion. No CT LS midline pain GI: soft, obese, Mild midepigastric tenderness to palpation, no rash, no peritoneal signs, no flank pain bilateral,no tenderness to palpation, no masses appreciated. No rebound, guarding, or rigidity noted. No flank pain bilateral, No distention Musculoskeletal: Patient has full range of motion of all of the extremities, no motor, sensory, or focal neurological deficits Neurological: A&O x3, normal speech Psychiatric: Cooperative Related Data Home Medications Medication Instructions Recorded Confirmed albuterol sulfate 90 mcg/actuation 1 inh inhalation Q6H PRN shortness 05/02/23 05/02/23 aerosol inhaler (Ventolin HFA) of breath or wheezing Previous Rx's Medication Instructions Recorded dicyclomine 20 mg tablet 20 mg PO TID PRN abdominal pain #7 05/02/23 tabs ondansetron 4 mg disintegrating 4 mg PO Q4H PRN nausea and 05/02/23 tablet vomiting 3 days #6 tabs Allergies Allergy/AdvReac Type Severity Reaction Status Date / Time No Known Drug Allergies Allergy Verified 05/02/23 08:50 [facility]SH [facility] Medical History (Updated 05/02/23 @ 10:33 by Juanito Perkins MD) Asthma ?J45.909 - Unspecified asthma, uncomplicated (ICD-10) Asthma ?J45.909 - Unspecified asthma, uncomplicated (ICD-10) Social History Smoking status: Current some day smoker Exam Constitutional Vital Signs, click to edit/add: Last Vital Signs Temp 97.8 F 05/02/23 08:50 Pulse 80 05/02/23 08:50 Resp 18 05/02/23 08:50 BP 179/95 H 05/02/23 08:50 Pulse Ox 96 05/02/23 08:50 O2 Del Method Room Air 05/02/23 08:50 Course Vital Signs Vital signs: Vital Signs Temperature 97.8 F 05/02/23 08:50 Pulse Rate 80 05/02/23 08:50 Respiratory Rate 18 05/02/23 08:50 Blood Pressure 179/95 H 05/02/23 08:50 Pulse Oximetry 96 05/02/23 08:50 Oxygen Delivery Method Room Air 05/02/23 08:50 Temperature 97.8 F 05/02/23 08:50 Pulse Rate 80 05/02/23 08:50 Respiratory Rate 18 05/02/23 08:50 Blood Pressure 179/95 H 05/02/23 08:50 Pulse Oximetry 96 05/02/23 08:50 Oxygen Delivery Method Room Air 05/02/23 08:50 Medical Decision Making MDM Narrative Medical decision making narrative: Patient was initially given 1 L of IV fluids along with IV Zofran. Patient potassium is 3.3, she was ordered oral potassium to drink. Patient was still having nausea after the 1st liter of IV fluid and Zofran, she was given a 2nd liter of IV fluids along with IV Zofran, Bentyl and will eventually drink the potassium. Patient was given a work note, sent home with prescription for Zofran and Bentyl. Patient will follow-up with PCP, continued increased Powerade or Gatorade at home. No questions at discharge. Lab Data Labs: Lab Results 05/02/23 05/02/23 Range/Units 08:56 09:00 WBC 8.4 (4.0-11.0) 10^3/uL RBC 5.04 (4.20-5.40) 10^6/uL Hgb 15.1 (12.0-16.0) g/dL Hct 43.3 (36.0-48.0) % MCV 85.9 (81.0-99.0) fL MCH 30.0 (26.7-34.0) pg MCHC 34.9 (29.9-35.2) g/dL RDW 12.1 (11.0-15.0) % Plt Count 312 (150-450) 10^3/uL MPV 9.2 L (9.5-13.5) fL Neut % (Auto) 66.4 (43.0-75.0) % Lymph % (Auto) 21.7 (20.5-60.0) % [place]idan % (Auto) 11.1 (1.7-12.0) % Eos % (Auto) 0.2 L (0.9-7.0) % Baso % (Auto) 0.4 (0.2-2.0) % Neut # (Auto) 5.6 (1.4-6.5) 10^3/uL Lymph # (Auto) 1.8 (1.2-3.8) 10^3/uL [place] # (Auto) 0.9 H (0.3-0.8) 10^3/uL Eos # (Auto) 0.0 (0.0-0.7) 10^3/uL Baso # (Auto) 0.0 (0.0-0.1) 10^3/uL Abs Immat Gran (auto) 0.02 (0.00-0.03) 10^3/uL Imm/Tot Granulo (auto) 0.2 (0.0-0.5) % Sodium 135 L (136-145) mmol/L Potassium 3.3 L (3.5-5.1) mmol/L Chloride 101 (98-107) mmol/L Carbon Dioxide 26.1 (21.0-32.0) mmol/L Anion Gap 11.2 BUN 9.0 (7.0-18.0) mg/dL Creatinine 0.79 (0.55-1.02) mg/dL Est GFR ( Amer) >60 (>=60) Est GFR (Non-Af Amer) >60 (>=60) BUN/Creatinine Ratio 11.4 Glucose 111 H (74-106) mg/dL Calcium 9.4 (8.5-10.1) mg/dL Total Bilirubin 0.5 (0.2-1.0) mg/dL AST 31 (15-37) U/L ALT 38 (14-59) U/L Alkaline Phosphatase 80 (46-116) U/L Total Protein 7.0 (6.4-8.2) g/dL Albumin 3.4 (3.4-5.0) g/dL Globulin 3.6 g/dL Albumin/Globulin Ratio 0.9 Lipase 26.0 (16.0-77.0) U/L Urine Color Yellow (YELLOW) Urine Clarity Slightly cloudy A (CLEAR) Urine pH 5.5 (5.0-9.0) Ur Specific Siren >=1.030 A (1.005-1.025) Urine Protein Negative (NEG/TRACE) mg/dL Urine Glucose (UA) Negative (NEGATIVE) mg/dL Urine Ketones 40 A (NEGATIVE) mg/dL Urine Occult Blood Large A (NEGATIVE) Urine Nitrite Negative (NEGATIVE) Urine Bilirubin Small A (NEGATIVE) Urine Urobilinogen 0.2 (0.2-1.0) EU/dL Ur Leukocyte Esterase Negative (NEGATIVE) Urine RBC 2-5 A (0-2) #/HPF Urine WBC None seen (NONE SEEN) #/HPF Ur Squamous Epith Cells Few A (NONE/RARE) #/LPF Urine Crystals None seen (None Seen) #/HPF Urine Bacteria None seen (NONE SEEN) #/HPF Urine Casts Seen A (NONE SEEN) #/LPF Hyaline Casts Rare Urine Mucus Small A (NONE SEEN) Ur Culture Indicated? No Urine HCG, Qual Negative (NEGATIVE) Discharge Plan Discharge Chief Complaint: Nausea/Vomiting/Diarrhea Clinical Impression: Diarrhea, Nausea & vomiting, Dehydration, Acute hypokalemia Patient Disposition: Home, Self-Care Condition: Fair Prescriptions / Home Meds: New dicyclomine 20 mg tablet 20 mg PO TID PRN (Reason: abdominal pain) Qty: 7 0RF ondansetron 4 mg tablet,disintegrating 4 mg PO Q4H PRN (Reason: nausea and vomiting) 3 Days Qty: 6 0RF No Action albuterol sulfate [Ventolin HFA] 90 mcg/actuation HFA aerosol inhaler 1 inh INHALATION Q6H PRN (Reason: shortness of breath or wheezing) Instructions: Dehydration (ED), Potassium Content of Foods List (ED), Hypokalemia (ED), Acute Nausea and Vomiting (ED), Acute Diarrhea (ED) Additional Instructions: Increase Gatorade, Powerade a home for the next 2 or 3 days. Use Zofran as needed to help with nausea and vomiting. Bentyl needed for abdominal cramping. Stand Alone Forms: Work/School Release, Portal Instructions Referrals: CHRALOTTE ESCOBEDO [Primary Care Provider] - 1 week
--- NOTE | 2023-05-02 11:27 | PC.NURSE ---
Patient reports relief from nausea and abdominal cramping.
== END 2023-05-02 11:55 | disposition home or self-care (01) ==
PROVIDERS: Emergency Provider Emergency Medicine; PCP Nurse Practitioner Family
DX: E86.0 Dehydration (principal); E87.6 Hypokalemia; R11.2 Nausea with vomiting, unspecified; R19.7 Diarrhea, unspecified; Z79.899 Other long term (current) drug therapy; J45.909 Unspecified asthma, uncomplicated; F17.210 Nicotine dependence, cigarettes, uncomplicated
CPT/HCPCS: 36415; 80053; 81001; 83690; 84703; 85025; 96361; 96372; 96374; 99284; J0500; J2405

== ENCOUNTER 2023-07-07 09:10 | Emergency (ER) | payer OTHER, SELFPAY ==
[2023-07-07 09:16] VITALS: BP 124/93; PULSE 85; RESP 18; TEMP 36.8; O2SAT 95; BMI 46.0
--- OUTSIDE RECORDS SUMMARY | 2023-07-07 09:21 | XMS_ITS | CCD ---
Author Name Unknown Address [address] [place] [address] Organization [facility] Care Team Providers Care Learning Operations Specialist Name Role Phone Sundar Nunez Attending Provider [phone] NON, STAFF, Primary Care Provider UnavailJf Nava Attending Provider Sera Escobedo Primary Care Provider [phone] SERA ESCOBEDO Primary Care Unavailable SERA ESCOBEDO Admitting Unavailable KAMAR, DR TAWANA Landry Consulting Unavailable SERA ESCOBEDO Attending Unavailable SERA ESCOBEDO Consulting Unavailable FANNY, SERA Primary Care Unavailable JOVANNY ., DR VINSON Admitting Unavailable JOVANNY ., DR VINSON Attending Unavailable JOVANNY ., DR VINSON Consulting Unavailable ZIEBER, DR SEBASTIAN Patrick Consulting Unavailable FANNY, SERA Primary Care Unavailable [...] Consulting Unavailable FANNY, SERA Primary Care Unavailable ANTONIO GRAHAM Admitting Unavailable CLEVE AL Consulting UnavailANTONIO [...] : DR TAWANA GALVIN M.D. Admission #: [id number] Family : Order #: [id number] CLICK HERE TO VIEW EXAM RADIOLOGY REPORT [...] Galvin MD on 09/19/2022 at 14:36 Normal [facility] VC COMP CONSULTATIONon 08-21 VC COMP CONSULTATION Patient: LESLY CARSON Exam Date: 08/21/2022 : 1985 Gender:F Ordering : SERA ESCOBEDO [facility] Admission #: [id number] Family : Order #: [id number] CLICK HERE TO VIEW EXAM RADIOLOGY REPORT [...] prolonged standing required of her job at [employer]. Patient's symptoms are partially relieved by rest, [...] her life the significant severe right and lgic-nz-lohipggc deep vein reflux. 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 Normal [facility] VC VENOUS REFLUX FIDEL LMTon 0 08-21-2022 VC VENOUS REFLUX FIDEL LMT Patient: LESLY CARSON Exam Date: 08/21/2022 : 1985 Gender:F Ordering : SERA ESCOBEDO [facility] Admission #: [id number] Family : Order #: [id number] CLICK HERE TO VIEW EXAM RADIOLOGY REPORT [...] Compressibility: Normal. Flow: Mild deep venous reflux. 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 NO POTENTIAL PATHOGENS SEEN. Normal [facility] Comment on above: Performed By: #### U RCX #### [facility] [address] [address] [address] Mireya Parada Covid-19 PCR ([facility]on 06[facility]26 SARS-CoV-2 (COVID-19) RNA ESTHER+probe Ql (Unsp spec) Not detected Normal NOT DETECTED [facility] Comment on above: Result Comment: When diagnostic [...] for this test is supported by the Brick Tender of Health and Human Service's declaration that [...] used). Performed By: #### U RCX #### [facility] [address] [address] [address] Mireya Parada ER URINE PROFILEon 03-14-202 3 Bilirubin Ql (U) SMALL Abnormal NEGATIVE [facility] Comment on above: Performed By: #### U RCX #### [facility] [address] [place] [address] Dr. Mireya Parada Clarity (U) CLEAR Normal CLEAR [facility] Comment on above: Performed By: #### U RCX #### [facility] [address] [place] [address] Dr. Mireya Parada Color (U) YELLOW Normal YELLOW [facility] Comment on above: Performed By: #### U RCX #### [facility] [address] [place] [address] Dr. Mireya BAI A micrscopic examination will be performed if indicated. Normal [facility] Comment on above: Performed By: #### U RCX #### [facility] [address] [place] [address] Dr. Mireya Parada Glucose Ql (U) Negative Normal NEGATIVE [facility] Comment on above: Performed By: #### U RCX #### [facility] [address] [place] [address] Dr. Mireya Parada Hemoglobin Ql (U) SMALL Abnormal NEGATIVE [facility] Comment on above: Performed By: #### U RCX #### [facility] [address] [place] [address] Dr. Mireya Parada Ketones Ql (U) Negative Normal NEGATIVE [facility] Comment on above: Performed By: #### U RCX #### [facility] [address] [place] [address] Dr. Mireya Parada LEUKOCYTES TRACE Abnormal NEGATIVE [facility] Comment on above: Performed By: #### U RCX #### [facility] [address] [place] [address] Dr. Mireya Parada Nitrite Ql (U) Negative Normal NEGATIVE [facility] Comment on above: Performed By: #### U RCX #### [facility] [address] [place] [address] Dr. Mireya Parada pH (U) 6.0 [pH] Normal 5-9 [facility] Comment on above: Performed By: #### U RCX #### [facility] [address] [place] [address] Dr. Mireya Parada SPEC GRAVITY 1.025 Normal 1.005-<=1.025 The [facility] Comment on above: Performed By: #### U RCX #### [facility] [address] [place] [address] Dr. Mireya Parada UA PROTEIN TRACE Normal NEGATIVE/ TRACE [facility] Comment on above: Performed By: #### U RCX #### [facility] [address] [place] [address] Dr. Mireya Parada UR MICRO IND INDICATED Normal [facility] Comment on above: Performed By: #### U RCX #### [facility] [address] [place] [address] Dr. Mireya Parada Urobilinogen Qn (U) 0.2 {Tarun'U}/dL Normal 0.2 - 1. 0 [facility] Comment on above: Performed By: #### U RCX #### [facility] [address] [place] [address] Dr. Mireya Parada GROUP A STREP CULTUREon 06-26 S. pyogenes Ag Ql (Unsp spec) Culture Observations: NEGATIVE FOR GROUP A STREPTOCOCCUS. Normal [facility] Comment on above: Performed By: #### G RASTCX, SSCRN #### [facility] [address] [place] [address] Dr. Mireya Parada INFLUENZA A AND B AGon 07-09 INFLUANEGH SEE BELOW Normal [facility] Comment on above: Result Comment: Nega tive for Flu A protein angiten. Infection due to Flu A cannot be ruled out. Flu A angiten in the sample may be below the detection limit of the test. Performed By: #### I NFLUAB #### [facility] [address] [place] [address] Dr. Mireya Parada INFLUBNEGH SEE BELOW Normal [facility] Comment on above: Result Comment: Nega tive for Flu B protein antigen. Infection due to Flu B cannot be ruled out. Flu B antigen in the sample may be below the detection limit of the test. Performed By: #### I NFLUAB #### [facility] [address] [place] [address] Dr. Mireya Parada INFLUENZA A AG Negative Normal NEGATIVE SEE COMMENT [facility] Comment on above: Performed By: #### I NFLUAB #### [facility] [address] [address] [address] Mireya Parada INFLUENZA B AG Negative Normal NEGATIVE SEE COMMENT [facility] Comment on above: Performed By: #### I NFLUAB #### [facility] [address] [place] [address] Dr. Mireya Parada STREPT SCREENon 07-09-2022 STREP SCREEN A Negative Normal NEGATIVE [facility] Comment on above: Performed By: #### G RASTCX, SSCRN #### [facility] [address] [place] [address] Dr. Mireya Parada URINE MICROSCOPIC ONLYon BACTERIA TRACE Abnormal NONE SEEN [facility] Comment on above: Performed By: #### U RCX #### [facility] [address] [place] [address] Dr. Mireya Parada Bacteria identified Cx Nom (U) INDICATED Normal [facility] Comment on above: Performed By: #### U RCX #### [facility] [address] [place] [address] Dr. Mireya Parada CAST NONE SEEN Normal NONE SEEN [facility] Comment on above: Performed By: #### U RCX #### [facility] [address] [place] [address] Dr. Mireya Parada Crystals LM Nom (Urine sed) NONE SEEN Normal NONE SEEN [facility] Comment on above: Performed By: #### U RCX #### [facility] [address] [place] [address] Dr. Mireya Parada Epithelial cells LM Ql (Urine sed) FEW Abnormal NONE SEEN /RARE [facility] Comment on above: Performed By: #### U RCX #### [facility] [address] [place] [address] Dr. Mireya Parada MUCOUS TRACE Abnormal NONE SEEN [facility] Comment on above: Performed By: #### U RCX #### [facility] [address] [address] [address] Mireya Parada RBC 0-2 Normal 0-2 [facility] Comment on above: Performed By: #### U RCX #### [facility] [address] [address] [address] Mireya Parada WBC 0-2 Abnormal NONE SEEN [facility] Comment on above: Performed By: #### U RCX #### [facility] [address] [address] [address] Mireya Parada PAP ACOG PANEL 2: 30 to 65on 04-13-2022 . . Normal [facility] Comment on above: Result Comment: Perf ormed at: WB Performed By: #### [id number] #### [facility] [address] [place] [address] Dr. Mireya Parada Age Gdln ACOG Testing 30-65 Normal [facility] Comment on above: Performed By: #### [id number] #### [facility] [address] [place] [address] Dr. Mireya Parada DIAGNOSIS: Comment Normal [facility] Comment on above: Result Comment: NEGA TIVE FOR INTRAEPITHELIAL LESION OR MALIGNANCY. Performed at: WB Performed By: #### [id number] #### [facility] [address] [place] [address] Dr. Mireya Parada HPV Aptima Negative Normal Negative [facility] Comment on above: Result Comment: This nucleic acid amplification test detects fourteen high-risk HPV types (16,18,31,33,35,39,45,51,52,56,58,59,66,68) without differentiation. Performed at: =G Performed By: #### 4 [id number] #### [facility] [address] [place] [address] Dr. Mireya Parada HPV Genotype Reflex Comment Normal [facility] Comment on above: Result Comment: Crit eria not met, HPV Genotype not performed. Performed at: WB Performed By: #### [id number] #### [facility] [address] [place] [address] Dr. Mireya Parada Methodology: Comment Normal [facility] Comment on above: Result Comment: This liquid based ThinPrep(R) pap test was screened with the use of an image guided system. Performed at: WB Performed By: #### [id number] #### [facility] [address] [address] [address] Mireya Parada Note: Comment Normal [facility] Comment on above: Result Comment: The Pap smear is a screening test designed to aid in the detection of premalignant and malignant conditions of the uterine cervix. It is not a diagnostic procedure and should not be used as the sole means of detecting cervical cancer. Both false-positive and false-negative reports do occur. . Performed at: WB Performed By: #### 4 [id number] #### [facility] [id number] Mireya Parada Performed by: Comment Normal [facility] Comment on above: Result Comment: Marie Haney, Die Forger (ASCP) Performed at: WB Performed By: #### [id number] #### [facility] [address] [address] [address] Mireya Parada Specimen adequacy: Comment Normal [facility] Comment on above: Result Comment: Sati sfactory for evaluation. Endocervical and/or squamous metaplastic cells (endocervical component) are present. Performed at: WB Performed By: #### 4 [id number] #### [facility] [address] [address] [address] Mireya Parada MG MAMM DIAGNOSTIC 3D FIDEL CA Don 04-12-2022 MG MAMM DIAGNOSTIC 3D FIDEL CAD Patient: LESLY CARSON Exam Date: 04/12/2022 : 1985 Gender:F Ordering : DR ALISSON PETTY . Admission #: [id number] Family : Order #: [id number] CLICK HERE TO VIEW EXAM RADIOLOGY REPORT [...] cervical cancer at age 41. LOCATION: [facility] BREAST COMPOSITION: Scattered areas fibroglandular density. FINDINGS: [...] M.D. on 04/12/2022 at 15:09 Normal [facility] US BREAST LEFT LIMITEDon US BREAST LEFT LIMITED Patient: LESLY CARSON Exam Date: 04/12/2022 : 1985 Gender:F Ordering : DR ALISSON PETTY . Admission #: [id number] Family : Order #: [id number] CLICK HERE TO VIEW EXAM RADIOLOGY REPORT [...] cervical cancer at age 41. LOCATION: [facility] BREAST COMPOSITION: Scattered areas fibroglandular density. FINDINGS: [...] Garrett M.D. on 04/12/2022 at 15:09 Normal [facility] Lab Reportson 05-07-2021 Lab Reports [id number] 0CD:127 Normal [facility] May 07, 2021 SERA ESCOBEDO, [address] [facility], [place] [address] Re: LESLY CARSON Date of : 1985 Thank you for your referral of Lesly Carson who was seen on consultation on 05/02/2021, for sebaceous cyst Lt scapula. I have enclosed my consultation note for your review. I will be happy to follow Lesly. Sincerely, cT Yang MD General Surgery Normal [facility] Ambulatory Clinical Summaryo n 05-02-2021 Ambulatory Clinical Summary {[id number] Normal [facility] Physician Referralon 021 Physician Referral [id number] 0CD:127 Normal [facility] HCG,Urineon 07-12-2020 Beta HCG ( test) Ql (U) Negative Normal [facility] Comment on above: Result Comment: PERF ORMED BY: [place] [address] PATHOLOGIST CRIMPER OPERATOR DUGLAS SANDOVAL M.D. Performed By: #### U HCG #### [facility] [address] Urine human chorionic gonado tropin (hCG) detection by immunoassayon 07-12-2020 HCG ( test) Ql (U) Negative [facility] Urine human chorionic gonado tropin (hCG) detection by immunoassayon 06-14-2020 HCG ( test) Ql (U) Negative [facility] Urine human chorionic gonado tropin (hCG) detection by immunoassayon 05-03-2020 HCG ( test) Ql (U) Negative [facility] Vital Signs Date Time Vital Sign Value Performing Clinician Faci lity 07-12-2020 12:09-0400 BP Diastolic 57 mm[Hg] [facility] 07-12-2020 12:09-0400 BP Systolic 106 mm[Hg] [facility] 07-12-2020 12:09-0400 Pulse (Heart Rate) 77 /min [facility] 07-12-2020 12:09-0400 Pulse Oximetry 97 % [facility] 07-12-2020 12:09-0400 Respiratory Rate 20 /min [facility] 07-12-2020 10:59-0400 BMI (Body Mass Index) 41.8 kg/m2 [facility] 07-12-2020 10:59-0400 Body weight 136.07 kg [facility] 07-12-2020 10:59-0400 Height 180.34 cm [facility] 06-14-2020 10:48-0500 BP Diastolic 75 mm[Hg] [facility] 06-14-2020 10:48-0500 BP Systolic 126 mm[Hg] [facility] 06-14-2020 10:48-0500 Pulse (Heart Rate) 77 /min [facility] 06-14-2020 10:48-0500 Pulse Oximetry 97 % [facility] 06-14-2020 10:48-0500 [facility] Rate 18 /[facility] 06-14-2020 09:48-0500 BP Diastolic 75 mm[Hg] [facility] 06-14-2020 09:48-0500 BP Systolic 126 mm[Hg] [facility] 06-14-2020 09:48-0500 Pulse (Heart Rate) 77 /min [facility] 06-14-2020 09:48-0500 Pulse Oximetry 97 % [facility] 06-14-2020 09:48-0500 Respiratory Rate 18 /min [facility] 06-14-2020 09:15-0500 BMI (Body Mass Index) 42.3 kg/m2 [facility] 06-14-2020 09:15-0500 Body Temperature 98.5 [degF] [facility] 06-14-2020 09:15-0500 Body weight 137.43 kg [facility] 06-14-2020 09:15-0500 Height 180.34 cm [facility] 06-14-2020 08:15-0500 BMI (Body Mass Index) 42.3 kg/m2 [facility] 06-14-2020 08:15-0500 Body Temperature 98.5 [degF] [facility] 06-14-2020 08:15-0500 Body weight 137.43 kg [facility] 06-14-2020 08:15-0500 Height 180.34 cm [facility] 05-03-2020 12:12-0500 BP Diastolic 79 mm[Hg] [facility] 05-03-2020 12:12-0500 BP Systolic 111 mm[Hg] [facility] 05-03-2020 12:12-0500 Pulse (Heart Rate) 75 /min [facility] 05-03-2020 12:12-0500 Pulse Oximetry 97 % [facility] 05-03-2020 12:12-0500 Respiratory Rate 18 /min [facility] 05-03-2020 11:21-0500 BMI (Body Mass Index) 43 kg/m2 [facility] 05-03-2020 11:21-0500 Body weight 140.16 kg [facility] 05-03-2020 11:21-0500 Height 180.34 cm [facility] 05-03-2020 11:12-0500 BP Diastolic 79 mm[Hg] [facility] 05-03-2020 11:12-0500 BP Systolic 111 mm[Hg] [facility] 05-03-2020 11:12-0500 Pulse (Heart Rate) 75 /min [facility] 05-03-2020 11:12-0500 Pulse Oximetry 97 % [facility] 05-03-2020 11:12-0500 Respiratory Rate 18 /min [facility] 05-03-2020 10:21-0500 BMI (Body Mass Index) 43 kg/m2 [facility] 05-03-2020 10:21-0500 Body weight 140.16 kg [facility] 05-03-2020 10:21-0500 Height 180.34 cm [facility] Encounters Encounter Date Encounter Type [...] Patient Education Benjie Non Diagnostic Blo ck [facility] Patient referral [facility] Payers Date Payer Category Payer Unknown [id number] 1985 Unknown [id number] [id number] 1985 Unknown [id number] [id number] 1985 Unknown [id number] .16.84 [id number] 1985 Unknown [id number] 1985 Unknown [id number] .16.84 [id number] 1985 Unknown [id number] 1959 Unknown [id number] 1958 Unknown [id number] Self-pay Self Pay [id number] Social History Date Type Detail Facility Start: 05-03-2020 End: 06-14-2020 Tobacco smoking status NHIS Smoker (finding) [facility] Start: 1985 Sex Assigned At Female F [facility] Goals Date Patient Goal Desired Activity /State Clinical Note 05-02-2021 Note Date & Type Note Facility 05-02-2021 Note Chief Complaint consultation for sebaceous cyst HPI Staff 35 year old female presents on consultation for Alba Escobedo for sebaceous cyst left scapula. Present many [...] Primary malignant neoplasm of female breast: Mother. [facility] Comment on above: Result Comment: Elec [...] section and content) DATE CREATED AUTHOR 06/18/2021 [facility] DATE CREATED AUTHOR AUTHOR'S ORGANIZ ATION 07/15/[address] [facility] DATE CREATED AUTHOR AUTHOR'S ORGANIZ ATION 10/04/2022 [facility] DATE CREATED AUTHOR AUTHOR'S ORGANIZ ATION 04/11/2023 [facility] dical Specialists EPIC FOR RECORDS PERTAINING [...] BE BASED ON THE PRIMARY CLINICAL RECORDS. [facility]. provides no warranty or guarantee of the accuracy or completeness of information in this document.
--- NOTE | 2023-07-07 09:30 | ED_ITS ---
HPI - Nausea/Vomiting/Diarrhea General Chief complaint: Nausea/Vomiting/Diarrhea Stated complaint: FLU LIKE SYMPTOMS Time Seen by Provider: 07/07/23 09:14 Source: patient Mode of arrival: walk-in History of Present Illness HPI Narrative: 37-year-old female presents for several day history of nausea vomiting and diarrhea. No cough or shortness of breath. She states she is feeling dehydrated. She has not complained to me of abdominal pain. Related Data Home Medications Medication Instructions Recorded Confirmed albuterol sulfate 90 mcg/actuation 1 inh inhalation Q6H PRN shortness 05/02/23 07/07/23 aerosol inhaler (Ventolin HFA) of breath or wheezing Previous Rx's Medication Instructions Recorded ondansetron 4 mg disintegrating 4 mg PO Q6H PRN nausea and 07/07/23 tablet vomiting #20 tabs Allergies Allergy/AdvReac Type Severity Reaction Status Date / Time No Known Drug Allergies Allergy Verified 05/02/23 08:50 Review of Systems ROS Narrative A ten point review of systems is negative except as noted above. [facility] Medical History (Updated 07/07/23 @ 10:23 by Albert Lilly MD) Asthma ?J45.909 - Unspecified asthma, uncomplicated (ICD-10) Asthma ?J45.909 - Unspecified asthma, uncomplicated (ICD-10) Social History Smoking status: Current every day smoker Exam Narrative Exam Narrative: Nurses note and vital signs reviewed and patient is not hypoxic. General: The patient appears well and in no apparent distress. Patient is resting comfortably on cart. Skin: Warm, dry, no pallor noted. There is no rash noted. Head: Normocephalic, atraumatic Eye: Normal conjunctiva, no drainage Ears, Nose, Mouth, and Throat: oral mucosa is moist. Nares patent. Cardiovascular: Regular Rate and Rhythm Respiratory: Patient is in no distress, no accessory muscle use, lungs are clear to auscultation, no wheezing, rales or rhonchi Back: non-tender GI: no tenderness to palpation, no masses appreciated. No rebound, guarding, or rigidity noted. Musculoskeletal: The patient has no evidence of calf tenderness, no pitting edema, symmetrical pulses noted bilaterally Neurological: A&O, normal speech Psychiatric: Cooperative Constitutional Vital Signs, click to edit/add: Last Vital Signs Temp 98.2 F 07/07/23 09:16 Pulse 85 07/07/23 09:16 Resp 18 07/07/23 09:16 BP 124/93 H 07/07/23 09:16 Pulse Ox 95 07/07/23 09:16 O2 Del Method Room Air 07/07/23 09:16 Course Vital Signs Vital signs: Vital Signs Temperature 98.2 F 07/07/23 09:16 Pulse Rate 85 07/07/23 09:16 Respiratory Rate 18 07/07/23 09:16 Blood Pressure 124/93 H 07/07/23 09:16 Pulse Oximetry 95 07/07/23 09:16 Oxygen Delivery Method Room Air 07/07/23 09:16 Temperature 98.2 F 07/07/23 09:16 Pulse Rate 85 07/07/23 09:16 Respiratory Rate 18 07/07/23 09:16 Blood Pressure 124/93 H 07/07/23 09:16 Pulse Oximetry 95 07/07/23 09:16 Oxygen Delivery Method Room Air 07/07/23 09:16 MDM - Nausea/Vomiting/Diarrhea MDM Narrative Medical decision making narrative: Blood work is negative. She is able to be discharged home and was given a work note. Treatment diagnosis and follow-up were discussed with the patient. My clinical impression is that she has viral gastroenteritis. Differential Diagnosis Differential diagnosis: Likely food poisoning, gastroenteritis and dehydration Lab Data Attestation: I reviewed the patient's lab results. Labs: Lab Results 07/07/23 Range/Units 09:30 WBC 6.0 (4.0-11.0) 10^3/uL RBC 5.24 (4.20-5.40) 10^6/uL Hgb 15.5 (12.0-16.0) g/dL Hct 44.0 (36.0-48.0) % MCV 84.0 (81.0-99.0) fL MCH 29.6 (26.7-34.0) pg MCHC 35.2 (29.9-35.2) g/dL RDW 11.9 (11.0-15.0) % Plt Count 191 (150-450) 10^3/uL MPV 9.5 (9.5-13.5) fL Neut % (Auto) 50.7 (43.0-75.0) % Lymph % (Auto) 33.0 (20.5-60.0) % [place]ock % (Auto) 15.9 H (1.7-12.0) % Eos % (Auto) 0.0 L (0.9-7.0) % Baso % (Auto) 0.2 (0.2-2.0) % Neut # (Auto) 3.0 (1.4-6.5) 10^3/uL Lymph # (Auto) 2.0 (1.2-3.8) 10^3/uL [place]ock # (Auto) 1.0 H (0.3-0.8) 10^3/uL Eos # (Auto) 0.0 (0.0-0.7) 10^3/uL Baso # (Auto) 0.0 (0.0-0.1) 10^3/uL Abs Immat Gran (auto) 0.01 (0.00-0.03) 10^3/uL Imm/Tot Granulo (auto) 0.2 (0.0-0.5) % Sodium 139 (136-145) mmol/L Potassium 3.1 L (3.5-5.1) mmol/L Chloride 99 (98-107) mmol/L Carbon Dioxide 28.0 (21.0-32.0) mmol/L Anion Gap 15.1 BUN 7.0 (7.0-18.0) mg/dL Creatinine 0.93 (0.55-1.02) mg/dL Est GFR ( Amer) >60 (>=60) Est GFR (Non-Af Amer) >60 (>=60) BUN/Creatinine Ratio 7.5 Glucose 106 (74-106) mg/dL Calcium 8.6 (8.5-10.1) mg/dL Serum HCG, Qual Negative (NEGATIVE) Discharge Plan Discharge Stand Alone Forms: Portal Instructions Chief Complaint: Nausea/Vomiting/Diarrhea Clinical Impression: Diarrhea, Nausea & vomiting Patient Disposition: Home, Self-Care Time of Disposition Decision: 10:23 Condition: Good Mode of Transportation: Private Vehicle Prescriptions / Home Meds: New ondansetron 4 mg tablet,disintegrating 4 mg PO Q6H PRN (Reason: nausea and vomiting) Qty: 20 0RF No Action albuterol sulfate [Ventolin HFA] 90 mcg/actuation HFA aerosol inhaler 1 inh INHALATION Q6H PRN (Reason: shortness of breath or wheezing) Instructions: Acute Nausea and Vomiting (ED) Referrals: CHARLOTTE ESCOBEDO [Primary Care Provider] - 1 week
[2023-07-07] MEDS: 0.9 % SODIUM CHLORIDE 1,000 ML 1000 ML IV (09:44)
[2023-07-07] MEDS: ONDANSETRON PF 4 MG/2 ML VIAL IV (09:44)
[2023-07-07 09:47] LABS: Basophils Percent Auto 0.2 % (0.2-2.0); Hemoglobin 15.5 g/dL (12.0-16.0); Immature Granulocytes Abs Auto 0.01 10^3/uL (0.00-0.03); Immature Granulocytes Pct Auto 0.2 % (0.0-0.5); Mean Corpuscular HGB Conc 35.2 g/dL (29.9-35.2); Mean Corpuscular Hemoglobin 29.6 pg (26.7-34.0); Mean Platelet Volume 9.5 fL (9.5-13.5); Monocytes Percent Auto 15.9 % (1.7-12.0); Neutrophils Percent Auto 50.7 % (43.0-75.0); Platelet Count 191 10^3/uL (150-450); Red Blood Count 5.24 10^6/uL (4.20-5.40); Red Cell Distribution Width 11.9 % (11.0-15.0)
[2023-07-07 09:51] LABS: Anion Gap 15.1; BUN Creatinine Ratio 7.5; Calcium 8.6 mg/dL (8.5-10.1); Chloride 99 mmol/L (98-107); Estimated GFR (African America >60 (>=60); Estimated GFR (Non-African Ame >60 (>=60); Glucose 106 mg/dL (74-106); Potassium 3.1 mmol/L (3.5-5.1); Sodium 139 mmol/L (136-145)
[2023-07-07 10:13] LABS: HCG Qualitative NEGATIVE (NEGATIVE)
== END 2023-07-07 10:33 | disposition home or self-care (01) ==
PROVIDERS: Emergency Provider Emergency Medicine; PCP Nurse Practitioner Family
DX: R11.2 Nausea with vomiting, unspecified (principal); R19.7 Diarrhea, unspecified; J45.909 Unspecified asthma, uncomplicated; F17.210 Nicotine dependence, cigarettes, uncomplicated
CPT/HCPCS: 36415; 80048; 84703; 85025; 96361; 96374; 99284

== ENCOUNTER 2024-04-15 18:50 | Outpatient (REF) | payer OTHER, SELFPAY ==
--- OUTSIDE RECORDS SUMMARY | 2024-04-15 18:54 | XMS_ITS | CCD ---
Author Organization 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 Role Phone Sundar Nunez Attending Provider [phone] NON, STAFF, Primary Care Provider UnavailJf Nava Attending Provider Sera Escobedo Primary Care Provider [phone] SERA ESCOBEDO Primary Care Unavailable SERA ESCOBEDO [...] Unavailable JOVANNY ., DR VINSON Consulting Unavailable WEST, DR TAWANA Landry Admitting Unavailable FANNY, SERA Primary Care Unavailable WEST, DR TAWANA Landry Attending Unavailable WEST, DR TAWANA Landry Consulting Unavailable FANNY, SERA Primary Care Unavailable WEST, DR TAWANA Landry Consulting Unavailable FANNY, SERA Admitting Unavailable FANNY, SERA Attending Unavailable FANNY, SERA Consulting Unavailable FANNY, SERA Primary Care Unavailable ANTONIO GRAHAM Admitting Unavailable GRECHNY ., CLEVE JOVEL Consulting UnavailANTONIO Gonsales Attending Unavailable Unavailable Primary Care Provider Unavaildeja Escobedo MD, Sera Unavailable LEW JOY Attending Unavailable LEW JOY Attending Unavailable LEW JOY Attending Unavailable Unavailable Unavailable Unavailable Medications Current Medications Medication Drug Class(es) Dates Sig (Normalized) Sig (Original) [id number] 200 actuat albuterol 0.09 mg/actuat metered dose inhaler (12 sources) beta2-Adrenergic Agonist Start: 08-05-2022 take 1 puff(s) by inhalation every four hours albuterol HFA 90 mcg/act inhaler Inhale 1 puff every 4 (four) hours if needed 08/05/2022 Active Start: 05-03-2020 Albuterol Sulf ate Active 1 - 2 PUFF INHALATION As Directed May 03, 2020 12:28pm Start: 05-03-2020 Albuterol Sulf ate Active 1 - 2 PUFF INHALATION As Directed May 03, 2020 11:28am cephalexin 500 mg oral capsule (3 sources) Cephalosporin Antibacterial Start: 03-09-2024 End: 03-19-2024 take 1 capsule by mouth in the morning, then take 1 capsule by mouth in the evening, then take 1 capsule by mouth at bedtime, then take 1 capsule by mouth three times daily cephalexin (Keflex) 500 MG capsule Indications: Onychocryptosis Take 1 capsule (500 mg) by mouth in the morning and 1 capsule (500 mg) in the evening and 1 capsule (500 mg) before bedtime. Do all this for 10 days. Take one tablet by mouth three times daily. 30 capsule 03/09/2024 03/19/2024 Active cyclobenzaprine hydrochloride 10 mg oral tablet (3 sources) Muscle Relaxant Start: 05-02-2020 take 10 mg by mouth once daily Cyclobenzaprine Active 10 MG PO Daily May 02, 2020 11:40am diclofenac sodium 75 mg delayed release oral tablet (3 sources) Nonsteroidal Anti-inflammatory Drug Start: 05-02-2020 take 75 mg by mouth twice daily Diclofenac Sodium Active 75 MG PO Twice daily May 02, 2020 11:40am SUMAtriptan 100 mg oral tablet (8 sources) Serotonin-1b and Serotonin-1d Receptor Agonist Start: 02-17-2024 SUMAtriptan (Imitrex) 100 MG tablet TAKE 1 TABLET TWICE A DAY AT LEAST 2 HOURS BETWEEN DOSES NEEDED FOR 30 DAYS 02/17/2024 Active Completed/Discontinued Medications Medication Drug Class(es) Dates Sig (Normalized) Sig (Original) fluconazole 150 mg oral tablet (1 source) Azole Antifungal Start: 03-11-2024 End: 03-14-2024 take 1 tablet by mouth once daily fluconazole (Diflucan) 150 MG tablet Indications: Onychocryptosis Take 1 tablet (150 mg) by mouth Daily for 3 days 3 tablet 1 03/11/2024 03/14/2024 Problems Active Problems Problem Classification Problem Date Documented Da te Episodic/Chronic Nausea and vomiting (1 source) Nausea with vomiting, unspecified; Translations: [NAUSEA WITH VOMITING UNSPECIFIED] Onset: 07-10-2022 Episodic Neoplasms of unspecified nature or uncertain behavior (2 sources) Neoplasm of uncertain behavior of skin; Translations: [Neoplasm of uncertain behavior of skin] 03-09-2024 Episodic Other connective tissue disease (4 sources) Other specified soft tissue disorders; Translations: [OTHER SPEC SOFT TISSUE DISORDERS] Onset: 08-03-2022 Episodic Other connective tissue disease (4 sources) Pain of toe of right foot; Translations: [Pain in right toe(s)] 03-09-2024 Episodic Other connective tissue disease (6 sources) Pain in left foot; Translations: [Pain in left foot] 03-09-2024 Episodic Other gastrointestinal disorders (4 sources) Diarrhea, unspecified; Translations: [DIARRHEA UNSPECIFIED] Onset: 07-09-2022 Episodic Other skin disorders (5 sources) Ingrowing nail; Translations: [Ingrowing nail] 03-09-2024 Episodic Unclassified (1 source) CONTACT W/AND (SUSP) EXPOS COVID-19; Translations: [CONTACT W/AND (SUSP) EXPOS COVID-19] Onset: 07-10-2022 Varicose veins of lower extremity (8 sources) Varicose veins of bilateral lower extremities with pain; Translations: [Varicose veins of bilateral lower extremities with other complications] Onset: 08-21-2022 Episodic Viral infection (6 sources) Verruca plantaris; Translations: [Plantar wart] 03-09-2024 Episodic Past or Other Problems Problem Classification [...] : DR TAWANA GALVIN M.D. Admission #: [id number] Family : Order #: [id number] CLICK HERE TO VIEW EXAM RADIOLOGY REPORT PROCEDURE: VEIN CENTER ENDOVENOUS ABLATION FIRST VEIN RIGHT GREAT SAPHENOUS VEIN COMPARISON: None. INDICATIONS: Pain co-occurrent and due to varicose veins of bilateral legs I83.813 OPERATIVE REPORT: The risks and benefits of the procedure had been previously discussed, and were rediscussed at length. Informed written consent was obtained by me and Joo Felder assisted. Time out procedure was performed. The right [...] Galvin MD on 09/19/2022 at 14:36 Normal [facility] VC COMP CONSULTATIONon 08-21 VC COMP CONSULTATION Patient: LESLY [place] Exam Date: 08/21/2022 : 1985 Gender:F Ordering : SERA ESCOBEDO [facility] Admission #: [id number] Family : Order #: [id number] CLICK HERE TO VIEW EXAM RADIOLOGY REPORT PROCEDURE: VC VEIN CENTER CONSULTATION VEIN CENTER - OFFICE [...] prolonged standing required of her job at [employer]. Patient's symptoms are partially relieved by rest, [...] her life the significant severe right and gdtf-hj-[id number] deep vein reflux. 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 Normal [facility] VC VENOUS REFLUX FIDEL LMTon 0 08-21-2022 VC VENOUS REFLUX FIDEL LMT Patient: LESLY [place] Exam Date: 08/21/2022 : 1985 Gender:F Ordering : SERA ESCOBEDO [facility] Admission #: [id number] Family : Order #: [id number] CLICK HERE TO VIEW EXAM RADIOLOGY REPORT [...] Compressibility: Normal. Flow: Mild deep venous reflux. 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 NO POTENTIAL PATHOGENS SEEN. Normal [facility] Comment on above: Performed By: #### U RCX #### [facility] [address] [place] [address] Dr. Mireya Parada Covid-19 PCR ([facility]on 06[facility]26 SARS-CoV-2 (COVID-19) RNA ESTHER+probe Ql (Unsp spec) Not detected Normal NOT DETECTED [facility] Comment on above: Result Comment: When diagnostic [...] for this test is supported by the Clinical Data Analyst of Health and Human Service's declaration that [...] used). Performed By: #### U RCX #### [facility] [address] [place] [address] Dr. Mireya SEGOVIA URINE PROFILEon 3 Bilirubin Ql (U) SMALL Abnormal NEGATIVE [facility] Comment on above: Performed By: #### U RCX #### [facility] [address] [place] [address] Dr. Mireya Parada Clarity (U) CLEAR Normal CLEAR [facility] Comment on above: Performed By: #### U RCX #### [facility] [address] [place] [address] Dr. Mireya Parada Color (U) YELLOW Normal YELLOW [facility] Comment on above: Performed By: #### U RCX #### [facility] [address] [place] [address] Dr. Mireya BAI A micrscopic examination will be performed if indicated. Normal [facility] Comment on above: Performed By: #### U RCX #### [facility] [address] [place] [address] Dr. Mireya Parada Glucose Ql (U) Negative Normal NEGATIVE [facility] Comment on above: Performed By: #### U RCX #### [facility] [address] [place] [address] Dr. Mireya Parada Hemoglobin Ql (U) SMALL Abnormal NEGATIVE [facility] Comment on above: Performed By: #### U RCX #### [facility] [address] [place] [address] Dr. Mireya Parada Ketones Ql (U) Negative Normal NEGATIVE [facility] Comment on above: Performed By: #### U RCX #### [facility] [address] [place] [address] Dr. Mireya Parada LEUKOCYTES TRACE Abnormal NEGATIVE [facility] Comment on above: Performed By: #### U RCX #### [facility] [address] [place] [address] Dr. Mireya Parada Nitrite Ql (U) Negative Normal NEGATIVE [facility] Comment on above: Performed By: #### U RCX #### [facility] [address] [place] [address] Dr. Mireya Parada pH (U) 6.0 [pH] Normal 5-9 [facility] Comment on above: Performed By: #### U RCX #### [facility] [address] [place] [address] Dr. Mireya Parada SPEC GRAVITY 1.025 Normal 1.005-<=1.025 The [facility] Comment on above: Performed By: #### U RCX #### [facility] [address] [place] [address] Dr. Mireya Parada UA PROTEIN TRACE Normal NEGATIVE/ TRACE [facility] Comment on above: Performed By: #### U RCX #### [facility] [address] [place] [address] Dr. Mireya Parada UR MICRO IND INDICATED Normal [facility] Comment on above: Performed By: #### U RCX #### [facility] [address] [place] [address] Dr. Mireya Parada Urobilinogen Qn (U) 0.2 {Tarun'U}/dL Normal 0.2 - 1. 0 [facility] Comment on above: Performed By: #### U RCX #### [facility] [address] [place] [address] Dr. Mireya Parada GROUP A STREP CULTUREon 06-26 S. pyogenes Ag Ql (Unsp spec) Culture Observations: NEGATIVE FOR GROUP A STREPTOCOCCUS. Normal [facility] Comment on above: Performed By: #### G RASTCX, SSCRN #### [facility] [address] [place] [address] Dr. Mireya Parada INFLUENZA A AND B AGon 07-09 INFLUANEGH SEE BELOW Normal [facility] Comment on above: Result Comment: Nega tive for Flu A protein angiten. Infection due to Flu A cannot be ruled out. Flu A angiten in the sample may be below the detection limit of the test. Performed By: #### I NFLUAB #### [facility] [address] [place] [address] Dr. Mireya Parada INFLUBNEGH SEE BELOW Normal [facility] Comment on above: Result Comment: Nega tive for Flu B protein antigen. Infection due to Flu B cannot be ruled out. Flu B antigen in the sample may be below the detection limit of the test. Performed By: #### I NFLUAB #### [facility] [address] [place] [address] Dr. Mireya Parada INFLUENZA A AG Negative Normal NEGATIVE SEE COMMENT [facility] Comment on above: Performed By: #### I NFLUAB #### [facility] [address] [place] [address] Dr. Mireya Parada INFLUENZA B AG Negative Normal NEGATIVE SEE COMMENT [facility] Comment on above: Performed By: #### I NFLUAB #### [facility] [address] [place] [address] Dr. Mireya Parada STREPT SCREENon 07-09-2022 STREP SCREEN A Negative Normal NEGATIVE [facility] Comment on above: Performed By: #### G RASTCX, SSCRN #### [facility] [address] [place] [address] Dr. Mireya Parada URINE MICROSCOPIC ONLYon BACTERIA TRACE Abnormal NONE SEEN [facility] Comment on above: Performed By: #### U RCX #### [facility] [address] [place] [address] Dr. Mireya Parada Bacteria identified Cx Nom (U) INDICATED Normal [facility] Comment on above: Performed By: #### U RCX #### [facility] [address] [place] [address] Dr. Mireya Parada CAST NONE SEEN Normal NONE SEEN [facility] Comment on above: Performed By: #### U RCX #### [facility] [address] [place] [address] Dr. Mireya Parada Crystals LM Nom (Urine sed) NONE SEEN Normal NONE SEEN [facility] Comment on above: Performed By: #### U RCX #### [facility] [address] [place] [address] Dr. Mireya Parada Epithelial cells LM Ql (Urine sed) FEW Abnormal NONE SEEN /RARE [facility] Comment on above: Performed By: #### U RCX #### [facility] [address] [address] [address] Mireya Parada MUCOUS TRACE Abnormal NONE SEEN [facility] Comment on above: Performed By: #### U RCX #### [facility] [address] [address] [address] Mireya Parada RBC 0-2 Normal 0-2 [facility] Comment on above: Performed By: #### U RCX #### [facility] [address] [address] [address] Mireya Parada WBC 0-2 Abnormal NONE SEEN [facility] Comment on above: Performed By: #### U RCX #### [facility] [address] [place] [address] Dr. Mireya Parada PAP ACOG PANEL 2: 30 to 65on 04-13-2022 . . Normal [facility] Comment on above: Result Comment: Perf ormed at: WB Performed By: #### [id number] #### [facility] [address] [place] [address] Dr. Mireya Parada Age Gdln ACOG Testing 30-65 Normal [facility] Comment on above: Performed By: #### 4 [id number] #### [facility] [address] [place] [address] Dr. Mireya Parada DIAGNOSIS: Comment Normal [facility] Comment on above: Result Comment: NEGA TIVE FOR INTRAEPITHELIAL LESION OR MALIGNANCY. Performed at: WB Performed By: #### 4 [id number] #### [facility] [address] [place] [address] Dr. Mireya Parada HPV Aptima Negative Normal Negative [facility] Comment on above: Result Comment: This nucleic acid amplification test detects fourteen high-risk HPV types (16,18,31,33,35,39,45,51,52,56,58,59,66,68) without differentiation. Performed at: =G Performed By: #### 4 [id number] #### [facility] [address] [place] [address] Dr. Mireya Parada HPV Genotype Reflex Comment Normal [facility] Comment on above: Result Comment: Crit eria not met, HPV Genotype not performed. Performed at: WB Performed By: #### [id number] #### [facility] [address] [place] [address] Dr. Mireya Parada Methodology: Comment Normal [facility] Comment on above: Result Comment: This liquid based ThinPrep(R) pap test was screened with the use of an image guided system. Performed at: WB Performed By: #### 4 [id number] #### [facility] [address] [address] [address] Mireya Parada Note: Comment Normal [facility] Comment on above: Result Comment: The Pap smear is a screening test designed to aid in the detection of premalignant and malignant conditions of the uterine cervix. It is not a diagnostic procedure and should not be used as the sole means of detecting cervical cancer. Both false-positive and false-negative reports do occur. . Performed at: WB Performed By: #### 4 [id number] #### [facility] [address] [address] [address] Mireya Parada Performed by: Comment Normal [facility] Comment on above: Result Comment: Marie Haney, Pants Closer (ASCP) Performed at: WB Performed By: #### 4 [id number] #### [facility] [address] [place] [address] Dr. Mireya Parada Specimen adequacy: Comment Normal [facility] Comment on above: Result Comment: Sati sfactory for evaluation. Endocervical and/or squamous metaplastic cells (endocervical component) are present. Performed at: WB Performed By: #### 4 [id number] #### [facility] [address] [place] [address] Dr. Mireya Parada MG MAMM DIAGNOSTIC 3D FIDEL CA Don 04-12-2022 MG MAMM DIAGNOSTIC 3D FIDEL CAD Patient: LESLY [place]SON Exam Date: 04/12/2022 : 1985 Gender:F Ordering : DR ALISSON PETTY . Admission #: [id number] Family : Order #: [id number] CLICK HERE TO VIEW EXAM RADIOLOGY REPORT [...] cervical cancer at age 41. LOCATION: [facility] BREAST COMPOSITION: Scattered areas fibroglandular density. FINDINGS: [...] M.D. on 04/12/2022 at 15:09 Normal [facility] US BREAST LEFT LIMITEDon US BREAST LEFT LIMITED Patient: LESLY [place] Exam Date: 04/12/2022 : 1985 Gender:F Ordering : DR ALISSON PETTY . Admission #: [id number] Family : Order #: [id number] CLICK HERE TO VIEW EXAM RADIOLOGY REPORT [...] cervical cancer at age 41. LOCATION: [facility] BREAST COMPOSITION: Scattered areas fibroglandular density. FINDINGS: [...] Garrett M.D. on 04/12/2022 at 15:09 Normal [facility] Lab Reportson 05-07-2021 Lab Reports [id number] 0CD:127 Normal [facility] Provider Letter FTon 05-07 Provider Letter [facility] May 07, 2021 SERA ESCOBEDO, [address] [facility], [place] [address] Re: LESLY [place] Date of : 1985 Thank you for your referral of Lesly [place] who was seen on consultation on 05/02/2021, for sebaceous cyst Lt scapula. I have enclosed my consultation note for your review. I will be happy to follow Lesly. Sincerely, Tc Yang MD General Surgery Normal [facility] Ambulatory Clinical Summaryo n 05-02-2021 Ambulatory Clinical Summary {[id number] Normal [facility] Physician Referralon 021 Physician Referral [id number] 0CD:127 Normal [facility] HCG,Urineon 07-12-2020 Beta HCG ( test) Ql (U) Negative Normal [facility] Comment on above: Result Comment: PERF ORMED BY: [place] [address] PATHOLOGIST RN MDS COORDINATOR DUGLAS SANDOVAL M.D. Performed By: #### U HCG #### [address] Urine human chorionic gonado tropin (hCG) detection by immunoassayon 07-12-2020 HCG ( test) Ql (U) Negative [facility] Urine human chorionic gonado tropin (hCG) detection by immunoassayon 06-14-2020 HCG ( test) Ql (U) Negative [facility] Urine human chorionic gonado tropin (hCG) detection by immunoassayon 05-03-2020 HCG ( test) Ql (U) Negative [facility] Vital Signs Date Time Vital Sign Value Performing Clinician Facility 04-09-2024 10:53-0500 Body height 180.3 cm Lew Brown DPM Work Phone: [facility] 04-09-2024 10:53-0500 Body mass index (BMI) [Ratio] 46.72 kg/m2 Lew Brown DPM Work Phone: [facility] 04-09-2024 10:53-0500 Body weight 151.96 kg Lew Brown DPM Work Phone: [facility] 04-09-2024 10:53-0500 Respiratory rate 16 /min Lew Brown DPM Work Phone: [facility] 03-23-2024 13:46-0500 Body height 180.3 cm Lew Brown DPM Work Phone: [facility] 03-23-2024 13:46-0500 Body mass index (BMI) [Ratio] 46.72 kg/m2 Lew Brown DPM Work Phone: [facility] 03-23-2024 13:46-0500 Body weight 151.96 kg Lew Joy DPM Work Phone: [facility] 03-23-2024 13:46-0500 Respiratory rate 18 /min Lew Joy DPM Work Phone: [facility] 03-09-2024 10:50-0500 Body height 180.3 cm Lew Joy DPM Work Phone: [facility] 03-09-2024 10:50-0500 Body mass index (BMI) [Ratio] 46.72 kg/m2 Lew Joy DPM Work Phone: [facility] 03-09-2024 10:50-0500 Body weight 151.96 kg Lew Joy DPM Work Phone: [facility] 03-09-2024 10:50-0500 Diastolic blood pressure 79 mm[Hg] Lew Joy DPM Work Phone: [facility] 03-09-2024 10:50-0500 Heart rate 85 /min Lew Joy DPM Work Phone: [facility] 03-09-2024 10:50-0500 Systolic blood pressure 126 mm[Hg] Lew Joy DPM Work Phone: [facility] 07-12-2020 12:09-0400 BP Diastolic 57 mm[Hg] [facility] 07-12-2020 12:09-0400 BP Systolic 106 mm[Hg] [facility] 07-12-2020 12:09-0400 Pulse (Heart Rate) 77 /min [facility] 07-12-2020 12:09-0400 Pulse Oximetry 97 % [facility] 07-12-2020 12:09-0400 Respiratory Rate 20 /min [facility] 07-12-2020 10:59-0400 BMI (Body Mass Index) 41.8 kg/m2 [facility] 07-12-2020 10:59-0400 Body weight 136.07 kg [facility] 07-12-2020 10:59-0400 Height 180.34 cm [facility] 06-14-2020 10:48-0500 BP Diastolic 75 mm[Hg] [facility] 06-14-2020 10:48-0500 BP Systolic 126 mm[Hg] [facility] 06-14-2020 10:48-0500 Pulse (Heart Rate) 77 /min [facility] 06-14-2020 10:48-0500 Pulse Oximetry 97 % [facility] 06-14-2020 10:48-0500 Respiratory Rate 18 /min [facility] 06-14-2020 09:48-0500 BP Diastolic 75 mm[Hg] [facility] 06-14-2020 09:48-0500 BP Systolic 126 mm[Hg] [facility] 06-14-2020 09:48-0500 Pulse (Heart Rate) 77 /min [facility] 06-14-2020 09:48-0500 Pulse Oximetry 97 % [facility] 06-14-2020 09:48-0500 Respiratory Rate 18 /min [facility] 06-14-2020 09:15-0500 BMI (Body Mass Index) 42.3 kg/m2 [facility] 06-14-2020 09:15-0500 Body Temperature 98.5 [degF] [facility] 06-14-2020 09:15-0500 Body weight 137.43 kg [facility] 06-14-2020 09:15-0500 Height 180.34 cm [facility] 06-14-2020 08:15-0500 BMI (Body Mass Index) 42.3 kg/m2 [facility] 06-14-2020 08:15-0500 Body Temperature 98.5 [degF] [facility] 06-14-2020 08:15-0500 Body weight 137.43 kg [facility] 06-14-2020 08:15-0500 Height 180.34 cm [facility] 05-03-2020 12:12-0500 BP Diastolic 79 mm[Hg] [facility] 05-03-2020 12:12-0500 BP Systolic 111 mm[Hg] [facility] 05-03-2020 12:12-0500 Pulse (Heart Rate) 75 /min [facility] 05-03-2020 12:12-0500 Pulse Oximetry 97 % [facility] 05-03-2020 12:12-0500 Respiratory Rate 18 /min [facility] 05-03-2020 11:21-0500 BMI (Body Mass Index) 43 kg/m2 [facility] 05-03-2020 11:21-0500 Body weight 140.16 kg [facility] [facility] 05-03-2020 11:21-0500 Height 180.34 cm [facility] 05-03-2020 11:12-0500 BP Diastolic 79 mm[Hg] [facility] 05-03-2020 11:12-0500 BP Systolic 111 mm[Hg] [facility] 05-03-2020 11:12-0500 Pulse (Heart Rate) 75 /min [facility] 05-03-2020 11:12-0500 Pulse Oximetry 97 % [facility] 05-03-2020 11:12-0500 Respiratory Rate 18 /min [facility] 05-03-2020 10:21-0500 BMI (Body Mass Index) 43 kg/m2 [facility] 05-03-2020 10:21-0500 Body weight 140.16 kg [facility] 05-03-2020 10:21-0500 Height 180.34 cm [facility] Encounters Encounter Date Encounter Type Care Provider Facility Start: 04-09-2024 End: 04-09-2024 Bamboo flowsheet Lew Joy DPM Work Phone: [facility] Start: 04-09-2024 End: 04-09-2024 Bamboo flowsheet Lew Joy DPM Work Phone: [facility] Start: 04-09-2024 End: 04-09-2024 Patient encounter procedure Lew Joy DPM Work Phone: [facility] Comment on above: Verruca plantaris (P rimary Dx); Foot pain, left Start: 04-09-2024 End: 04-09-2024 ambulatory LEW JOY Not Available Start: 03-23-2024 End: 03-23-2024 ambulatory LEW JOY Not Available Start: 03-23-2024 End: 03-23-2024 Office outpatient visit 15 minutes Lew Joy DPM Work Phone: [facility] Comment on above: Onychocryptosis (Vero cheyenne Dx); Verruca plantaris; Foot pain, left; Toe pain, right Start: 03-11-2024 End: 03-11-2024 Telephone encounter Lew Joy DPM Work Phone: [facility] Comment on above: Rx Start: 03-09-2024 End: 03-09-2024 Bamboo flowsheet Lew Joy DPM Work Phone: [facility] Start: 03-09-2024 End: 03-09-2024 Bamboo flowsheet Lew Joy DPM Work Phone: [facility] Start: 03-09-2024 End: 03-09-2024 Office outpatient new 30 minutes Lew Joy DPM Work Phone: [facility] Comment on above: Neoplasm of uncertai n behavior of skin (Primary Dx); Onychocryptosis; Toe pain, right; Verruca plantaris; Foot pain, left Start: 03-09-2024 End: 03-09-2024 ambulatory LEW JOY Not Available Start: 09-19-2022 End: 09-20-[address] TAWANA GALVIN Facility:[facility] Start: 08-21-2022 End: 08-22-2022 ambulatory SERA ESCOBEDO Facility:[facility] Start: 08-03-2022 End: 08-04-2022 ambulatory SERA ESCOBEDO Facility:[facility] Start: 07-09-2022 End: 07-09-2022 ambulatory SERA ESCOBEDO Facility:[facility] Start: 04-12-2022 End: 04-13-2022 ambulatory SERA ESCOBEDO Facility:[facility] Start: 04-04-2022 End: 04-04-2022 ambulatory SERA ESCOBEDO Facility:[facility] Start: 07-12-2020 End: 07-12-2020 Admission to day surgery Jf Benjie [facility] Start: 06-14-2020 End: 06-14-2020 Admission to day surgery Jf Benjie [facility] Start: 05-03-2020 End: 05-03-2020 Admission to day surgery Sundar Nunez [facility] Start: 02-18-2020 End: 02-18-2020 Patient encounter procedure Sundar Nunez -[facility] Procedures Date Procedure Procedure Detail Performing Clinician Start: 07-12-2020 Injection of local a nesthetic into sacroiliac joint Jf Waldrop Start: 06-14-2020 Injection of spinal epidural space Jf Waldrop Start: 05-03-2020 Local anesthetic lum bar facet joint nerve block Sundar Nunez Start: 02-18-2020 XR pre/post mri xray Porfirio Walker Start: 02-18-2020 MR lumbar spine wo con Sundar Nunez Plan of Treatment Date Care Activity Detail Author Start: 04-30-2024 End: 04-30-2024 Patient encounter procedure 04/30/2024 9:40 AM EST Office Visit [facility] [address] [place] [address] Lew Joy, DPM [address] [address] [facility] Start: 04-15-2024 End: 04-15-2024 Patient encounter procedure 04/15/2024 2:00 PM EST Office Visit [facility] [address] [place] [phone] Sierra Peterson PA [address] [place] [address] [facility] Start: 04-09-2024 End: 04-09-2024 Patient encounter procedure [facility] Comment on above: Verruca plantaris (P rimary Dx); Foot pain, left Start: 03-23-2024 End: 03-23-2024 Patient encounter procedure 03/23/2024 11:40 AM EST Office Visit [facility] [address] [place] [phone] Lew Joy DPM [address] [address] [facility] Patient Education Benjie Magdaleno [facility] Patient referral [facility] Payers Date Payer Category Payer Private Health Insurance [employer] [id number] 1985 Unknown [id number] 1986 Unknown [id number] 593 1986 Unknown [id number]. 593 1986 Unknown [id number] [id number]. 593 1986 Unknown [id number] [id number]. 593 1986 Unknown [id number] [id number]. 593 1986 Unknown [id number] [id number]. 1259 1986 Unknown [id number] [id number]. 1259 1986 Unknown [id number]. 1259 1959 Unknown [id number] 1959 Unknown [id number] Self-pay Self Pay [id number] Social History Date Type Detail Facility Start: 05-03-2020 End: 06-14-2020 Tobacco smoking status ILIS Smoker (finding) [facility] Start: 1985 Sex Assigned At Female [facility]: 03-09-2024 [facility] History of tobacco use Cigarette Smoker [facility] Start: 03-09-2024 End: 04-09-2024 Alcoholic beverage intake Ex-drinker (finding) [facility] Start: 03-09-2024 End: 03-23-2024 History of Social function [facility] Start: 03-09-2024 End: 03-23-2024 Tobacco use panel [facility] Start: 04-09-2023 Gender identity Identifies as female gender (finding) [facility] Goals Date Patient Goal Desired Activity /State Clinical Notes 05-02-2021 to 04-09-2024 Lew Joy, NUBIA - 04/09/2024 11:00 AM Colby Joy DPM - 03/23/2024 11:40 AM ESTTelephone Encounter - Tameka Mclaughlin - 03/11/2024 11:33 AM EST Note Date & Type Note Facility 04-09-2024 History of Presen t illness Narrative Patient: Lesly Carson : 1985 PCP: No primary care provider on file. SUBJECTIVE Lesly Carson 38 y.o. presents today for follow up of skin lesion/neoplasm of unknown origin to the left foot Pt states that previous treatment of acid tx with some improvement Pt rates pain the pain on a 1-10 scale an intensity of 5 Pt presents today for followup. Allergies: No Known Allergies Past Medical History: Past Medical History: Diagnosis Date Depression screening Encounter for well woman exam History of blood clots Localized swelling of both lower extremities Morbid obesity with BMI of 40.0-44.9, adult ([facility]) Umbilical hernia Medications: Current Outpatient Medications: albuterol HFA 90 mcg/act inhaler, Inhale 1 puff every 4 (four) hours if needed, Disp: , Rfl: SUMAtriptan (Imitrex) 100 MG tablet, TAKE 1 TABLET TWICE A DAY AT LEAST 2 HOURS BETWEEN DOSES NEEDED FOR 30 DAYS, Disp: , Rfl: Social History: Social History Socioeconomic History Marital status: Spouse name: Not on file Number of children: Not on file Years of education: Not on file Highest education level: Not on file Occupational History Not on file Tobacco Use Smoking status: Every Day Types: Cigarettes Smokeless tobacco: Not on file Vaping Use Vaping status: Unknown Substance and Sexual Activity Alcohol use: Not Currently Drug use: Yes Types: Marijuana Sexual activity: Defer Other Topics Concern Not on file Social History Narrative Not on file Social Drivers of Health Financial Resource Strain: Not on file Food Insecurity: Not on file Transportation Needs: Not on file Physical Activity: Not on file Stress: Not on file Social Connections: Not on file Intimate Partner Violence: Not on file Housing Stability: Not on file ROS: General: denies fever, chills, fatigue, malaise GI: denies loose or watery stool on antibiotic OBJECTIVE LE EXAM: DERM: lateral right hallux has negative erythema and negative drainage from the lateral right hallux. Nummular lesion measuring at the left heel measuring 0.3 cm x 0.2 cm. VASC: Palpable pedal pulsed b/l with warm to cool tibia to toes b/l NEURO: Gross sensation intact digits 1-10 and b/l feet ORTHO: Ankle ROM less than 10 degrees b/l. Positive pain on palpation to left heel lesion ASSESSMENT 1. Verruca plantaris 2. Foot pain, left PLAN Patient may take lxxy-ina-zshzdkq NSAID p.r.n. for pain Application of salinocaine acid medication to lesion/lesions located at left foot Informed pt of risks and benefits of procedure including high reoccurence rate, infection, pain and consent given. Application of DSD post procedure. Lew Joy DPM documented in this encounter [facility] 03-23-2024 History of Presen t illness Narrative Patient: Lesly Carson : 1985 PCP: No primary care provider on file. SUBJECTIVE This is a 38 y.o. female that presents today for follow up of partial permanent nail avulsion to the lateral right hallux Patient states negative drainage from the toe and has been taking oral antibiotics with negative complaints Patient denies n/f/v/c. Lesly Carson 38 y.o. presents today for follow up of skin lesion/neoplasm of unknown origin to the left foot Pt states that previous treatment of acid tx with some improvement Pt rates pain the pain on a 1-10 scale an intensity of 1 Pt presents today for followup. Allergies: No Known Allergies Past Medical History: Past Medical History: Diagnosis Date Depression screening Encounter for well woman exam History of blood clots Localized swelling of both lower extremities Morbid obesity with BMI of 40.0-44.9, adult (CMS/HCC) Umbilical hernia Medications: Current Outpatient Medications: albuterol HFA 90 mcg/act inhaler, Inhale 1 puff every 4 (four) hours if needed, Disp: , Rfl: cephalexin (Keflex) 500 MG capsule, Take 1 capsule (500 mg) by mouth in the morning and 1 capsule (500 mg) in the evening and 1 capsule (500 mg) before bedtime. Do all this for 10 days. Take one tablet by mouth three times daily., Disp: 30 capsule, Rfl: 0 SUMAtriptan (Imitrex) 100 MG tablet, TAKE 1 TABLET TWICE A DAY AT LEAST 2 HOURS BETWEEN DOSES NEEDED FOR 30 DAYS, Disp: , Rfl: Social History: Social History Socioeconomic History Marital status: Spouse name: Not on file Number of children: Not on file Years of education: Not on file Highest education level: Not on file Occupational History Not on file Tobacco Use Smoking status: Every Day Types: Cigarettes Smokeless tobacco: Not on file Vaping Use Vaping status: Unknown Substance and Sexual Activity Alcohol use: Not Currently Drug use: Yes Types: Marijuana Sexual activity: Defer Other Topics Concern Not on file Social History Narrative Not on file Social Drivers of Health Financial Resource Strain: Not on file Food Insecurity: Not on file Transportation Needs: Not on file Physical Activity: Not on file Stress: Not on file Social Connections: Not on file Intimate Partner Violence: Not on file Housing Stability: Not on file ROS: General: denies fever, chills, fatigue, malaise GI: denies loose or watery stool on antibiotic OBJECTIVE LE EXAM: DERM: lateral right hallux has negative erythema and negative drainage from the lateral right hallux. Nummular lesion measuring at the left heel measuring 0.3 cm x 0.3 cm. VASC: Palpable pedal pulsed b/l with warm to cool tibia to toes b/l NEURO: Gross sensation intact digits 1-10 and b/l feet ORTHO: Ankle ROM less than 10 degrees b/l. Positive pain on palpation to left heel lesion minimal pain on palpation to the right hallux ASSESSMENT 1. Verruca plantaris 2. Foot pain, left 3. Onychocryptosis 4. Toe pain, right PLAN Discussed condition in detail with patient today and discussed conservative treatments and possible excisional biopsy of lesion in the future for pathological diagnosis of specimen. Patient may take jnst-jnb-ownyhog NSAID p.r.n. for pain Application of salinocaine acid medication to lesion/lesions located at left foot Informed pt of risks and benefits of procedure including high reoccurence rate, infection, pain and consent given. Application of DSD post procedure. Pt to discontinue neosporin and dsd . Lew Joy DPM documented in this encounter [facility] 03-11-2024 Telephone encounter Note Pt notified. Thank you [facility] 03-11-2024 Miscellaneous Notes Pt notified. Thank you done Pt left msg asking if she can get a rx for a yeast infection, states since being on the medication she now has an infection documented in this encounter [facility] 03-11-2024 Telephone encounter Note done [facility] 03-11-2024 Telephone encounter Note Pt left msg asking if she can get a rx for a yeast infection, states since being on the medication she now has an infection [facility] 03-09-2024 History of Presen t illness Narrative Patient: Lesly Carson : 1985 PCP: No primary care provider on file. SUBJECTIVE This is a 38 y.o. female that presents today with a CC of ingrowing right lateral hallux toenail Pt states problem has been present for the past years Pt has noticed positive drainage in the past to the affected area and states pain is achey in nature. Treatments have consisted of soaking and trying to remove the ingrown nail on their own with no relief. Patient has had longstanding issue with ingrowing nail and presents today for treatment Patient also complaints of left heel skin lesion that is been present for the past year and has tried tpzw-xst-vtsjliq treatments including duct tape with negative improvement and states it is painful with ambulation Allergies: No Known Allergies Past Medical History: Past Medical History: Diagnosis Date Depression screening Encounter for well woman exam History of blood clots Localized swelling of both lower extremities Morbid obesity with BMI of 40.0-44.9, adult ([facility]) Umbilical hernia Medications: Current Outpatient Medications: SUMAtriptan (Imitrex) 100 MG tablet, TAKE 1 TABLET TWICE A DAY AT LEAST 2 HOURS BETWEEN DOSES NEEDED FOR 30 DAYS, Disp: , Rfl: albuterol HFA 90 mcg/act inhaler, Inhale 1 puff every 4 (four) hours if needed, Disp: , Rfl: Social History: Social History Socioeconomic History Marital status: Spouse name: Not on file Number of children: Not on file Years of education: Not on file Highest education level: Not on file Occupational History Not on file Tobacco Use Smoking status: Every Day Types: Cigarettes Smokeless tobacco: Not on file Vaping Use Vaping status: Unknown Substance and Sexual Activity Alcohol use: Not Currently Drug use: Yes Types: Marijuana Sexual activity: Defer Other Topics Concern Not on file Social History Narrative Not on file Social Drivers of Health Financial Resource Strain: Not on file Food Insecurity: Not on file Transportation Needs: Not on file Physical Activity: Not on file Stress: Not on file Social Connections: Not on file Intimate Partner Violence: Not on file Housing Stability: Not on file ROS: General: denies fever, chills, fatigue, malaise Gastrointestinal: Positive history of IBS and abdominal pain cramping denies any current treatment Musculoskeletal: Positive history of back pain herniated disc disease in the past Cardiovascular: denies CP, palpitations, irregular rhythms OBJECTIVE LE EXAM: DERM: Positive erythema and negative drainage from the lateral right hallux with hair growth noted to b/l feet. Nummular lesion measuring at the left heel measuring 1 cm x 1 cm. VASC: Palpable pedal pulsed b/l with warm to cool tibia to toes b/l NEURO: Gross sensation intact digits 1-10 and b/l feet ORTHO: Ankle ROM less than 10 degrees b/l. Positive pain on palpation to left heel lesion Positive pain on palpation to the right hallux ASSESSMENT 1. Onychocryptosis 2. Toe pain, right 3. Neoplasm of uncertain behavior of skin 4. Verruca plantaris 5. Foot pain, left PLAN Discussed condition in detail with patient today and discussed conservative treatments and possible excisional biopsy of lesion in the future for pathological diagnosis of specimen. Patient may take xjbt-lmu-tvdtzqa NSAID p.r.n. for pain Application of salinocaine acid medication to lesion/lesions located at left foot Informed pt of risks and benefits of procedure including high reoccurence rate, infection, pain and consent given. Application of DSD post procedure. Perfomed PPN avulsion to the right toenail. Informed pt of risks/ benefits of procedure including infection,reoccurance,pain, bleeding. Pt consents. 3cc of xylocaine 2% plain injected into the affected digit and tournicut applied to affected digit for 3 minutes. The affected toe was prepped/draped in a sterile manner and the offending nail border removed and 3 phenol applications of 30 seconds a peice to nail matrix. Alcohol flush applied and tournicut released with prompt hyperemic response. Patient was given a prescription for an antibiotic Lew Joy DPM documented in this encounter [facility] 05-02-2021 Note Chief Complaint consultation for sebaceous [...] Primary malignant neoplasm of female breast: Mother. [facility] Comment on above: Result Comment: Elec tronically Signed By: PETER ZAVALA, Tc Varner\Date and Time Signed: 05/02/21 16:58 EST Evaluation note Diagnosis Neoplasm of uncertain behavior of skin- Primary Onychocryptosis Ingrowing nail Toe pain, right Pain in soft tissues of limb Verruca plantaris Plantar wart Foot pain, left Pain in soft tissues of limb [facility] Diagnosis Onychocryptosis- Primary Ingrowing nail [facility] Diagnosis Onychocryptosis- Primary Ingrowing nail Verruca plantaris Plantar wart Foot pain, left Pain in soft tissues of limb Toe pain, right Pain in soft tissues of limb [facility] Diagnosis Verruca plantaris- Primary Plantar wart Foot pain, left Pain in soft tissues of limb documented in this encounter [facility] Advance Directives No Advanced Directives Records Found [...] section and content) DATE CREATED AUTHOR 06/18/2021 [facility] DATE CREATED AUTHOR AUTHOR'S ORGANIZ ATION 07/15/2021 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 [facility] [employer] [facility]. provides no warranty or guarantee of the accuracy or completeness of information in this document.
[2024-04-23 14:07] LABS: Age Gdln ACOG Testing Note (.); HPV Aptima Negative (Negative); IGP, Aptima HPV, rfx 16/18,45 Note (.)
== END 2024-04-15 18:51 | disposition home or self-care (01) ==
LOC: LAB 18:50
PROVIDERS: PCP Nurse Practitioner Family; Visit Provider Physician Assistant
DX: Z01.419 Encounter for gynecological examination (general) (routine) without abnormal findings (principal)
CPT/HCPCS: 87624; 88175

== ENCOUNTER 2025-04-19 12:01 | Outpatient (OUT) | payer OTHER, SELFPAY ==
--- OUTSIDE RECORDS SUMMARY | 2025-01-03 07:45 | XMS_ITS ---
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 Box Mechanic Name Role Phone BinaSohailyonathanradha Unavailable [phone] REASON FOR VISIT DSRP x 1 (UR), ProCav Social History Sex Assigned At : Social History Observation Description Sex Assigned At Female Encounters Encounter Location Date Provider Diagnosis [facility] [address] [place] [id number] 01/03/2025 Blanca Curran Plan Of Treatment Next Appt Details Provider Name:Blanca Curran , 05/17/2025 02:30:00 PM, [address] [place] [address], [phone], Progress Notes * HÉCTOR KarynDOB:[birth year] (39 yo F)Acc No.[id number]:01/03/2025 Dental Note Patient: Kylah Blanchardica :?Blanca Curran DDSDOB:1985???Age:39 Y ???Sex:FemaleDate:01/03/2025Phone:[phone]:[id number], [place], [id number] Subjective: * Chief Complaints: * D SRP x 1 (UR), ProCav Billing Information: * Procedure Codes: * Electronic signature of Blanca Curran DDS on 04/19/2025 at 10:54 AM ESTSign off status: Pending * Provider: Macario Curran DDS Date: 0 01/03/2025 Generated for Printing/Faxing/eTransmitting on:?04/19/2025 10:54 AM EST
--- OUTSIDE RECORDS SUMMARY | 2025-01-25 07:45 | XMS_ITS ---
Author Organization [facility] vices Address [address] [place] [id number] Care Team Providers Care Duck Operator Name Role Phone ToriBlanca jansen Unavailable [phone] REASON FOR VISIT Rest #3-OL Social History Sex Assigned At : Social History Observation Description Sex Assigned At Female Encounters Encounter Location Date Provider Diagnosis [facility] [address] [place] [id number] 01/25/2025 Blanca Curran Plan Of Treatment Next Appt Details Provider Name:Blanca Curran , 05/17/2025 02:30:00 PM, [address] [place] [address], [id number], Progress Notes * HÉCTORKylahguerreroDOB:[birth year] (39 yo F)Acc No.[id number]:01/25/2025 Patient:?Kylah Carsonica :?Blanca Curran DDSDOB:1985???Age:39 Y ???Sex:FemaleDate:01/25/2025Phone:[phone]:[id number], [place], [id number] Subjective: * Chief Complaints: * R est #3-OL Billing Information: * Procedure Codes: * Electronic signature of Blanca Curran DDS on 04/19/2025 at 10:54 AM ESTSign off status: Pending * Provider: Macario Curran DDS Date: 0 01/25/2025 Generated for Printing/Faxing/eTransmitting on:?04/19/2025 10:54 AM EST
--- OUTSIDE RECORDS SUMMARY | 2025-04-19 11:00 | XMS_ITS | Encounter Summary ---
Author Organization [facility] Address [address] [place] [address] Care Team Providers Care Tube Draw Helper Name Role Phone Sera Hernandez MD Unavailable [phone] Reason for Visit * ReasonCommentsWell Women Visit Encounter Details DateTypeDepartmentCare Team (Latest Contact Info)Crbnqjordig41/23/2025 11:00 AM ESTOffice Visit [facility] [address] [place] [address] Rush Pace DO [address] [place], [place] [id number] Well woman exam with routine gynecological exam; PCOS (polycystic ovarian syndrome); Abnormal uterine bleeding (AUB) Social History Tobacco UseTypesPacks/DayYears UsedDateSmoking Tobacco: Every DayCigarettes Alcohol UseStandard Drinks/WeekCommentsNot Currently0 (1 standard drink = 0.6 oz pure alcohol)CommentsNoSex and Gender InformationValueDate RecordedSex Assigned at UssniMokgya00/13/2023 9:41 AM ESTLegal CmiVdqdul49/15/2023 10:53 PM EDTGender UmecgueqBdjvto96/13/2023 9:41 AM ESTSexual OrientationNot on file documented as of this encounter Last Filed Vital Signs Vital SignReadingTime TakenCommentsBlood Yotusqgy373/7604/19/2025 11:24 AM EST Pulse--Temperature--Respiratory Rate--Oxygen Saturation--Inhaled Oxygen Concentration--Elgcdk948 kg (385 lb 1.9 oz)04/19/2025 11:24 AM ESTHeight--Body Mass Index53.71005/31/2024 9:46 AM ESTdocumented in this encounter Progress Notes * Selma Sutherland, BLEACH PLANT OPERATOR - 04/19/2025 11:00 AM EST Reason for Appointment: Patient ID: Karyn Carson is a 39 y.o. female who presents for [facility] Women Visit Patient presents today for Annual Exam. MEDICATIONS Current Outpatient Medications Medication Instructions albuterol HFA 90 mcg/act inhaler 1 puff, Every 4 hours PRN SUMAtriptan (Imitrex) 100 MG tablet TAKE 1 TABLET TWICE A DAY AT LEAST 2 HOURS BETWEEN DOSES NEEDED FOR 30 DAYS ALLERGIES No Known Allergies PROBLEMS Active Ambulatory Problems Diagnosis Date Noted No Active Ambulatory Problems Resolved Ambulatory Problems Diagnosis Date Noted No Resolved Ambulatory Problems Past Medical History: Diagnosis Date Depression screening Encounter for well woman exam History of blood clots Localized swelling of both lower extremities Morbid obesity with BMI of 40.0-44.9, adult ([facility]) Umbilical hernia HISTORY PAST MEDICAL HISTORY SOCIAL HISTORY Past Medical History: Diagnosis Date Depression screening [facility] History of blood clots Localized swelling of both lower extremities Morbid obesity with BMI of 40.0-44.9, adult ([facility]) Umbilical hernia Social History Tobacco Use Smoking status: Every Day Types: Cigarettes Smokeless tobacco: Not on file Vaping Use Vaping status: Unknown Substance Use Topics Alcohol use: Not Currently Drug use: Yes Types: Marijuana FAMILY HISTORY Family History Problem Relation Name Age of Onset Cancer Mother Breast Diabetes Father Hypertension Father Hyperlipidemia Father Other (CVA) Father ADD / ADHD Daughter Breast cancer Father's Sister Hypertension Paternal Grandfather Diabetes Paternal Grandfather Hypertension Sibling Diabetes Sibling Clotting disorder Other SURGICAL HISTORY Past Surgical History: Procedure Laterality Date OTHER SURGICAL HISTORY 09/2013 T&A TUBAL LIGATION 2018 Laparoscopic WISDOM TOOTH EXTRACTION REVIEW OF SYSTEMS Review of Systems: Review of Systems Constitutional: Negative. HENT: Negative. Eyes: Negative. Respiratory: Negative. Cardiovascular: Negative. Gastrointestinal: Negative. Genitourinary: Positive for menstrual problem and pelvic pain. Musculoskeletal: Negative. Skin: Negative. Neurological: Negative. All other systems reviewed and are negative. Hematological: Negative. Endocrine: Negative. Allergic/Immunologic: Negative. OBJECTIVE Objective: Physical Exam Constitutional: Appearance: Normal appearance. She is well-developed. Genitourinary: Vulva normal. Breasts: Breasts are soft. Right: Normal. Left: Normal. Cardiovascular: Rate and Rhythm: Normal rate and regular rhythm. Pulmonary: Effort: Pulmonary effort is normal. Breath sounds: Normal breath sounds. Abdominal: General: Bowel sounds are normal. There is no distension. Palpations: Abdomen is soft. Tenderness: There is no abdominal tenderness. There is no guarding or rebound. Musculoskeletal: General: No swelling. Normal range of motion. Right lower leg: No edema. Left lower leg: No edema. Neurological: Mental Status: She is alert and oriented to person, place, and time. Skin: General: Skin is warm and dry. Psychiatric: Mood and Affect: Mood normal. Behavior: Behavior normal. Vitals and nursing note reviewed. Exam conducted with a insulator tester present. Vitals: Estimated body mass index is 53.71 kg/m?? as calculated from the following: Height as of 05/31/24: 5' 11 . Weight as of this encounter: 385 lb 1.9 oz. BP: 120/76 Patient's last menstrual period was 04/16/2025. ASSESSMENT & PLAN ICD-10-CM 1. Well woman exam with routine gynecological exam Z01.419 Pap Smear HPV DNA probe, amplified Orders Placed This Encounter Procedures HPV DNA probe, amplified Annual Wellness Exam: Patient presents today for routine annual exam. Patient states she has complaints of heavy, AUB discussed all options with pt in detail. Pt to be scheduled for an endometrial ablation. Pt to return for embx/preop. Patients vitals were reviewed and within normal limits. Growth and development is noted to be appropriate for age. Menstrual history is noted to be irregular with concerns reported. No mental health concerns was expressed. Pap Smear: Speculum was inserted into the vagina and pap was obtained without difficulty. HPV testing was performed per age guideline. Patient was advised that pap results could take anywhere from 7 to 10 days to receive and our office will reach out to the patient with those once we have them. Patient can also view results via [employer]. I reinforced importance of condom use for STI prevention. Patient declined cultures to be performed with today's visit. Breast Exam: Upon examination, clinical breast exam was noted to be normal. Patient was counseled on breast self-awareness, including the importance of knowing what is normal for her own breasts and promptly reporting any changes such as new lumps, skin dimpling, nipple discharge, or pain. Screening mammogram recommended annually beginning at age 40 or earlier if risk factors are present. Discussed signs and symptoms of breast cancer and when to seek medical attention. Answered all patient questions. Contraceptive Counseling (if applicable): Patient is currently using tubal as a form of contraceptive. Follow Up: Patient is to return to our office in one year for annual exam unless needed otherwise. Documented by Selma Sutherland LPN on behalf of: Rush Pace DO documented in this encounter Plan of Treatment DateTypeDepartmentCare Team (Latest Contact Info)Aacbnapobyw63/14/2026 11:00 AM ESTAncillary Procedure [facility] [address] [place] [address] 05/25/2025 11:30 AM ESTProcedure Visit [facility] [address] [place] [address] [place] [address] Rush Pace DO [address] [place] [address] 04/24/2026 11:00 AM ESTProcedure Visit [facility] [address] [place] [address] [place] [address] Rush Pace DO [address] [place] [address] NameTypePriorityAssociated DiagnosesOrder SchedulePap SmearPathology and CytologyRoutine Well woman exam with routine gynecological exam Ordered: 04/19/2025HPV DNA probe, amplifiedMicrobiologyRoutine Well woman exam with routine gynecological exam Ordered: 04/19/2025hCG, quantitative, pregnancyLabRoutine PCOS (polycystic ovarian syndrome) Abnormal uterine bleeding (AUB) Ordered: 04/19/2025TSHLabRoutine PCOS (polycystic ovarian syndrome) Abnormal uterine bleeding (AUB) Ordered: 04/19/2025T4, freeLabRoutine PCOS (polycystic ovarian syndrome) Abnormal uterine bleeding (AUB) Ordered: 04/19/2025BC and differentialLabRoutine PCOS (polycystic ovarian syndrome) Abnormal uterine bleeding (AUB) Ordered: 04/19/2025Follicle stimulating hormoneLabRoutine PCOS (polycystic ovarian syndrome) Abnormal uterine bleeding (AUB) Ordered: 04/19/2025Luteinizing hormoneLabRoutine PCOS (polycystic ovarian syndrome) Abnormal uterine bleeding (AUB) Ordered: 04/19/2025Hemoglobin T3wDzsBaymgwx Abnormal uterine bleeding (AUB) Ordered: 04/19/2025DHEA-sulfateLabRoutine PCOS (polycystic ovarian syndrome) Abnormal uterine bleeding (AUB) Ordered: 04/19/2025DHEALabRoutine PCOS (polycystic ovarian syndrome) Abnormal uterine bleeding (AUB) Expected: 04/19/2025 (Approximate), Expires: 04/19/2026US Pelvis w/ TVImaging Routine PCOS (polycystic ovarian syndrome) Abnormal uterine bleeding (AUB) Expected: 04/19/2025, Expires: 04/19/2026documented as of this encounter Visit Diagnoses Diagnosis Well woman exam with routine gynecological exam Routine gynecological examination PCOS (polycystic ovarian syndrome) Polycystic ovaries Abnormal uterine bleeding (AUB) documented in this encounter Care Teams Team MemberRelationshipSpecialtyStart DateEnd Date Sera Hernandez MD [address] [place], [place] [id number] Referring PhysicianFamily Xxqbohny04/13/24documented as of this encounter
--- OUTSIDE RECORDS SUMMARY | 2025-04-19 12:07 | XMS_ITS | Clinical Summary ---
Author Organization [facility] Address [address] [place] [address] Care Team Providers Care Security Representative Name Role Phone Sera Hernandez MD Unavailable [phone] Allergies No known active allergies Medications MedicationSigDispense QuantityRefillsLast FilledStart DateEnd DateStatus albuterol HFA 90 mcg/act inhaler Inhale 1 puff every 4 (four) hours if uamvtw7008/05/2022ctive SUMAtriptan (Imitrex) 100 MG tablet TAKE 1 TABLET TWICE A DAY AT LEAST 2 HOURS BETWEEN DOSES NEEDED FOR 30 DAYS 02/17/2024ctive Active Problems No known active problems Encounters DateTypeDepartmentCare SuazWpucvpqytjm04/23/2025 11:00 AM ESTOffice Visit [facility] [address] [address] Rush Pace DO Well woman exam with routine gynecological exam; PCOS (polycystic ovarian syndrome); Abnormal uterine bleeding (AUB)04/19/2025amboo flowsheet [facility] [address] [place] [address] Rush Pace DO 04/13/2025Travelfrom Last 3 Months Family History Medical HistoryRelationNameCommentsADD / ADHDDaughterCVAFatherDiabetesFather HyperlipidemiaFatherHypertensionFatherBreast cancerFather's SisterCancerMother BreastClotting disorderOtherDiabetesPaternal GrandfatherHypertensionPaternal GrandfatherDiabetesSiblingHypertensionSiblingRelationNameStatusCommentsBrother2 DaughterAliveFatherFather's SisterMotherOtherPaternal GrandfatherSibling Social History Tobacco UseTypesPacks/DayYears UsedDateSmoking Tobacco: Every DayCigarettes Tobacco Cessation:Ready to Q uit: Not Asked; Counseling Given: Yes Alcohol UseStandard Drinks/WeekCommentsNot Currently0 (1 standard drink = 0.6 oz pure alcohol)CommentsNoSex and Gender InformationValueDate RecordedSex Assigned at CpjqsLojrmm55/13/2023 9:41 AM ESTLegal ComRfexkc05/15/2023 10:53 PM EDTGender SygrmkumRwjybb79/13/2023 9:41 AM ESTSexual OrientationNot on file Last Filed Vital Signs Vital SignReadingTime TakenCommentsBlood Gwhgpwte981/7612 11:24 AM EST Qutyw9914 10:50 AM ESTTemperature--Respiratory Nhtj293705/31/2024 9:46 AM ESTOxygen Saturation--Inhaled Oxygen Concentration--Phsaon170 kg (385 lb 1.9 oz) 04/19/2025 11:24 AM HXDPzpxxx790.3 cm (5' 11 )05/31/2024 9:46 AM ESTBody Mass Index53.71005/31/2024 9:46 AM EST Plan of Treatment DateTypeDepartmentCare Team (Latest Contact Info)Rpnmndhiyge34/14/2026 11:00 AM ESTAncillary Procedure [facility] [address] [place] [address] 05/25/2025 11:30 AM ESTProcedure Visit [facility] [address] [place] [address] Rush Pace DO [address] [place] [address] [place] [address] 04/24/2026 11:00 AM ESTProcedure Visit [facility] [address] [address] Rush Pace DO [address] [facility] [place] [address] Insurance Care Teams Team MemberRelationshipSpecialtyStart DateEnd Sera Hernandez MD [facility] [place] [address] Referring PhysicianFamily Tcipqckh55/13/24
--- OUTSIDE RECORDS SUMMARY | 2025-04-19 12:07 | XMS_ITS | Encounter Summary ---
Author Organization [facility] Address [address] [place] [address] Care Team Providers Care Bar Captain Name Role Phone Sera Hernandez MD Unavailable [phone] Encounter Details DateTypeDepartmentCare Team (Latest Contact Info)Yctrbpolpln87/23/2025Bamboo flowsheet [facility] [address] [facility] [place] [address] Rush Pace DO [address] [place], [facility] Social History Tobacco UseTypesPacks/DayYears UsedDateSmoking Tobacco: Every DayCigarettes Alcohol UseStandard Drinks/WeekCommentsNot Currently0 (1 standard drink = 0.6 oz pure alcohol)CommentsNoSex and Gender InformationValueDate RecordedSex Assigned at ZkvmvKambdu92/13/2023 9:41 AM ESTLegal SijLxgnww51/15/2023 10:53 PM EDTGender OqyywydsJorlqj54/13/2023 9:41 AM ESTSexual OrientationNot on file documented as of this encounter Plan of Treatment DateTypeDepartmentCare Team (Latest Contact Info)Hmaryotzxsw47/14/2026 11:00 AM ESTAncillary Procedure [facility] [address] [facility] [place] [address] 05/25/2025 11:30 AM ESTProcedure Visit [facility] [address] [facility] [place] [address] Rush Pace, DO [address] [facility] [place] [address] 04/24/2026 11:00 AM ESTProcedure Visit [facility] [address] [facility] [place] [address] Rush Pace, DO [address] [facility] [place] [address] documented as of this encounter Visit Diagnoses Not on filedocumented in this encounter Care Teams Team MemberRelationshipSpecialtyStart DateEnd Date Sera Hernandez MD [address] [place] [address] Referring PhysicianFamily Xqabuadp70/13/24documented as of this encounter
--- OUTSIDE RECORDS SUMMARY | 2025-04-19 12:07 | XMS_ITS | Encounter Summary ---
Author Organization [facility] Address [address] [place] [address] Care Team Providers Care Shore Man Name Role Phone Sera Hernandez MD Unavailable [phone] Encounter Details DateTypeDepartmentCare Team (Latest Contact Info)Ofrjlgagqhi44/17/2025Travel Social History Tobacco UseTypesPacks/DayYears UsedDateSmoking Tobacco: Every DayCigarettes Alcohol UseStandard Drinks/WeekCommentsNot Currently0 (1 standard drink = 0.6 oz pure alcohol)CommentsNoSex and Gender InformationValueDate RecordedSex Assigned at SlyekGtalyz31/13/2023 9:41 AM ESTLegal LvkPkzveh04/15/2023 10:53 PM EDTGender MechzgykUofahx87/13/2023 9:41 AM ESTSexual OrientationNot on file documented as of this encounter Plan of Treatment DateTypeDepartmentCare Team (Latest Contact Info)Qdcuylwqrqu85/14/2026 11:00 AM ESTAncillary Procedure [facility] [address] [place] [address] 05/25/2025 11:30 AM ESTProcedure Visit [facility] [address] [place] [address] Rush Pace, DO [address] [place] [address] 04/24/2026 11:00 AM ESTProcedure Visit [facility] [address] [address] Rush Pace DO [address] [facility] [address] [place], [place] [address] documented as of this encounter Visit Diagnoses Not on filedocumented in this encounter Care Teams Team MemberRelationshipSpecialtyStart DateEnd Date Sera Hernandez MD [address] [place] [address] Referring PhysicianFamily Mhkfdfqt08/13/24documented as of this encounter
--- OUTSIDE RECORDS SUMMARY | 2025-04-19 12:07 | XMS_ITS | Patient Health Record ---
Author Organization Formerly [facility] vices Address [address] [place], [place] [address] Care Team Providers Care Sales Apprentice Name Role Phone BinaSohailhelena Unavailable [phone] Allergies No Known Allergies Reason For Referral Reason Referral given for r emoval 2,15 Diagnosis 1 Encounter for screen ing for dental disorders (Z13.84) Referral Organization [facility] Referring Provider First Name Blanca Referring Provider Last Name Bina Referring Provider Speciality Dental [facility] Practice Referred Provider [facility], Dental - Pediatric Referred Provider Specialty Pediatric de ntist General Notes Blanca Curran 09/26 09:43:20 PM >Hard copy referral given to patient, Lynda Mancusoomi 11/02/2024 02:56:13 PM >1st attempt to contact pt LMLeonard Michelle 11/02/2024 03:06:07 PM >Pt called back and advised that she was not able to get scheduled and was told to call back as many times as possible and see if she can get scheduled as they no longer have a waiting list. Pt is requesting to be referred elsewhere. She does not mind the travel time, but did say [place] was too far. She did advise that [place] was a bit closer. Sending action to provider for new referral, Farnaz Valle 11/03/2024 09:28:22 AM >Provider wrote out 2nd referral resource for pt to try and get scheduled. Called pt to inform. LVM Referral Priority Routine Reason D4341- DSRPs x 3 LL LR UL Diagnosis 1 Necrosis of pulp (K0 4.1) Referral Organization [facility] Referring Provider First Name Blanca Referring Provider Last Name Bina Referring Provider Speciality Dental Gen [facility] Practice Referred Provider Specialty Authorizatio n General Notes Sierra Clayton 025 11:13:45 AM >Marked as ready to submit., Katy Gooddy 11/22/2024 05:38:58 PM >Submitted prior on [employer] website, Jennifer Good 11/25/2024 01:37:42 PM >Prior approved for upper right only, Sierra Clayton 12/10/2024 10:06:19 AM >Called to review approval of UR side and denial of all other quads. Need to schedule pt for 1 hour long appt with hygiene for SRP x 1/procav unless pt would like to proceed as SP. VMB full., Sierra Clayton 12/20/2024 09:03:36 AM >Text message sent informing pt to call the office in regard to prior response., Sierra Clayton 12/20/2024 09:37:12 AM >Pt called back. Reviewed that insurance approved 1 quad and denied other 3 due to not seeing significant bone loss in those areas. Explained to pt that what we could do is schedule an appt and do the SRP on the UR side and a procav on the other areas. Told her that we could start there and see how it goes and if it doesn't get as deep as needed, then we can talk about being SP or appealing to the insurance. Pt agreed. Referral Priority Routine Reason Please evaluate lenny ent for removal #2 and #14 Diagnosis 1 Encounter for screen ing for dental disorders (Z13.84) Referral Organization [facility] Referring Provider First Name Blanca Referring Provider Last Name Tori Referring Provider Speciality [facility] Practice Referred Provider Sancho Coello Referred Provider Specialty Oral Surgery General Notes Blanca Curran 12/2024 08:39:31 AM >Hard copy referral scanned into patients chart, Melva Mancuso 11/03/2024 04:55:45 PM >Addressing referral due to pt requesting a referral to [facility]. Referral Priority Routine Reason Patient referred for removal #2,14 Diagnosis 1 Encounter for screen ing for dental disorders (Z13.84) Referral Organization [facility] Referring Provider First Name Blanca Referring Provider Last Name Bina Referring Provider Speciality Dental [facility] era Practice Referred Provider [facility] Dr. Yony Saldana DDS Referred Provider Specialty Dental surge on General Notes Blanca Curran 12/2024 04:47:08 PM >Referrral created for patient per patient request, Meggan Samaniego 11/09/2024 03:40:18 PM >Referral was sent to [facility] via email. They sent a reply stating that the pt did not meet their scheduling parameters. Contacted pt and informed her of [facility]'s response. Marking referral as addressed. Referral Priority Routine Reason [id number] UR Diagnosis 1 Necrosis of pulp (K0 4.1) Referral Organization [facility] Referring Provider First Name Blanca Referring Provider Last Name Bina Referring Provider Speciality Dental General acute hospital Referred Provider Specialty Authorizatio n General Notes Jennifer Good 025 01:34:49 PM >Prior was approved for Upper Right only, Sierra Clayton 12/10/2024 10:06:07 AM >Called to review approval of UR side and denial of all other quads. Need to schedule pt for 1 hour long appt with hygiene for SRP x 1/procav unless pt would like to proceed as SP. VMB full., Sierra Clayton 12/20/2024 09:03:24 AM >Text message sent informing pt to call the office in regard to prior response., Sierra Clayton 12/20/2024 09:36:54 AM >Pt called back. Reviewed that insurance approved 1 quad and denied other 3 due to not seeing significant bone loss in those areas. Explained to pt that what we could do is schedule an appt and do the SRP on the UR side and a procav on the other areas. Told her that we could start there and see how it goes and if it doesn't get as deep as needed, then we can talk about being SP or appealing to the insurance. Pt agreed., Sierra Clayton 01/17/2025 03:47:27 PM >Pt was seen on 01/10/2025 for this tx. Marked as completed tx/addressed. Referral Priority Routine Medications Medication SIG (Take, Route, Frequency, Duration) Notes Start Date End Date Status Albuterol Sulfate (2.5 MG/3M L) 0.083% Nebulization Solution 3 mL as needed Inhalation every 6 hrs Active Social History Tobacco Use: Social History Observation Description Date Details (start date - stop date) Current Smoker NA - NA Sex Assigned At : Social History Observation Description Sex Assigned At Female Social History Social DeterminantsSocial InfoQuestionAnswerNotesPRAPAREDate Completed/Updated: 10/07/2024patient entered dataWhat is your current housing situation?I have housingpatient entered dataAre you worried about losing your housing?No patient entered dataWhat is the highest level of school that you have finished?High school diploma or GEDpatient entered dataWhat is your current work situation?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 (For example: talkingto friends on the phone, visiting friends or family, going to jewish or club meetings)More than 5 times a week patient entered dataHow stressed are you? Stress is when someone feels tense, nervous, anxious, or can't sleep at nightbecause their mind is troubledA little bitpatient entered dataIn the past year have you spent more than 2 nights in a row in a detention, usp, chcf center, orjuvenile correctional facility?No patient entered dataDo you feel physically and emotionally safe where you currently live?Yespatient entered dataIn the past year, have you been afraid of your partner or ex-partner?Nopatient entered dataAre you a refugee?No patient entered dataWhat country are you from?[place] Statespatient entered dataTobacco Use:Social InfoQuestionAnswerNotesTobacco Control (Standard)Tobacco use:Current smokerAdditional Findings: Tobacco usere-cigarette Problems Problem Type SNOMED Code ICD Code Onset Dates Problem Status W/U Status Risk Notes Problem Tobacco user (008471682) Cigaret te nicotine dependence without complication (F17.210) ActiveconfirmedProblemBody mass index 40+ - morbidly obese (929031395)BMI 40.0- 44.9, adult (Z68.41)ActiveconfirmedProblemBody mass index 40+ - severely obese (962039274)Body mass index [BMI] 40.0-44.9, adult (Z68.41)Activeconfirmed Vital Signs Heart Rate 91 /min 01/10/2025 Height-cm180.34 cm01/10/2025lood pressure llpbvhwau01 mm Hg01/10/2025Weight-kg 145.15 kg01/10/20257108Ixuilb87 in01/10/2025lood pressure muviqxfo481 mm Hg 01/10/20258507Ujnutz615 lbs01/10/2025BMI44.63 kg/m201/10/2025 Encounters Encounter Location Date Provider Diagnosis [facility] [address] [place], [place] [id number] 10/07/2024 Blanca Curran BMI 40.0-44.9, bj lt Z68.41 ; Dental caries into dentine K02.62 ; Necrosis of pulp K04.1 ; Encounter for screening for dental disorders Z13.84 ; Encounter for dental examination and cleaning with abnormal findings Z01.21 and Chronic periodontitis, generalized, unspecified severity K05.329 [facility] [address], [place] [id number] 01/10/2025 Blanca Curran Chronic periodonti tis, generalized, unspecified severity K05.329 ; Cigarette nicotine dependence without complication F17.210 ; Body mass index [BMI] 40.0-44.9, adult Z68.41 ; Dietary counseling Z71.3 and Exercise counseling Z71.82 Assessments Encounter Date Diagnosis (ICD Code) Assessment Notes Treatment Notes Treatment Clinical Notes Section Notes 10/07/2024 BMI 40.0-44.9, adult (ICD-10 - Z 68.41) 5Chronic periodontitis, generalized, unspecified severity (ICD-10 - K05.329)5Cigarette nicotine dependence without complication (ICD-10 - F17.210)Patient provided with 5-611-UFPT-Now phone line.01/10/2025ody mass index [BMI] 40.0-44.9, adult (ICD-10 - Z68.41)10/07/2024Dental caries into dentine (ICD-10 - K02.62)10/07/2024Necrosis of pulp (ICD-10 - K04.1)10/07/2024 Encounter for screening for dental disorders (ICD-10 - Z13.84)01/10/2025Dietary counseling (ICD-10 - Z71.3)10/07/2024Encounter for dental examination and cleaning with abnormal findings (ICD-10 - Z01.21)01/10/2025Exercise counseling (ICD-10 - Z71.82)10/07/2024hronic periodontitis, generalized, unspecified severity (ICD-10 - K05.329) Plan Of Treatment Next Appt Details Provider Name:Blanca Vallejustyna , 05/17/2025 02:30:00 PM, [address] [place] [address], [phone], Insurance Providers Payer Name Payer Address Payer Phone Subscriber Number Group Number Insured Name Patient Relationship to Insured Coverage Start Date Coverage End Date [employer] [facility] [address] [place] [address] [id number] Kingston Carson - patient is the [id number] 2024DMedicaid C after [facility] [place], [place] [id number], JessicaSelf - patient is the [id number] 2024 Medical (General) History Medical History History ICD Code Asthma
--- OUTSIDE RECORDS SUMMARY | 2025-04-19 12:08 | XMS_ITS | Clinical Summary ---
Author Organization [email or web address] Address [id number] [place] [address] Care Team Providers Care Corporate Tax Preparer Name Role Phone Sera Hernandez BREAST WORKER-PIANO PLAYER Primary Care Provider Allergies No known active allergies Medications MedicationSigDispense QuantityRefillsLast FilledStart DateEnd DateStatus albuterol (PROVENTIL HFA;VENTOLIN HFA) 90 mcg/actuation inhaler 04/07/2019Active ciprofloxacin HCl (CIPRO) 500 mg tablet 05/17/2019Active Active Problems No known active problems Family History Medical HistoryRelationNameCommentsDiabetesBrotherArthritisFatherDiabetesFather Heart diseaseFatherHyperlipidemiaFatherHypertensionFatherStrokeFatherPancreatic cancerMaternal GrandmotherAsthmaMotherBreast cancerMotherGlaucomaMotherCOPD Paternal GrandfatherDiabetesPaternal GrandfatherGlaucomaPaternal Grandfather AneurysmPaternal GrandmotherBlood ClotsSisterRelationNameStatusCommentsBrother FatherMaternal GrandfatherDeceasedMaternal GrandmotherDeceasedMotherPaternal GrandfatherDeceasedPaternal GrandmotherDeceasedSister Social History Tobacco UseTypesPacks/DayYears UsedDateSmoking Tobacco: Every DayCigarettes Smokeless Tobacco: Never Tobacco Cessation:Counseling Given: Yes Alcohol UseStandard Drinks/WeekCommentsYes0 (1 standard drink = 0.6 oz pure alcohol)socialChildcareAnswerDate FzgdavdeVgisyoalsPsxpwfm57/11/2019Employment AnswerDate EuxnhfpmTcuokunjsdEoptwsz42/11/2019Purpose - LifeAnswerDate Recorded Purpose and direction in xyeoTtivacf50/11/2021CommentsUnknownSex and Gender InformationValueDate RecordedSex Assigned at BirthNot on fileLegal Sex Szrsip1204/07/2019 3:51 PM ESTGender IdentityNot on fileSexual OrientationNot on file Last Filed Vital Signs Vital SignReadingTime TakenCommentsBlood Rpvafqzl830/80005/19/2019 3:24 PM EST Pulse--Temperature--Respiratory Rate--Oxygen Saturation--Inhaled Oxygen Concentration--Fobeth217.1 kg (311 lb)05/19/2019 3:24 PM YGAAbkyyy093.3 cm (5' 11 )05/19/2019 3:24 PM ESTBody Mass Index43.38005/19/2019 3:24 PM EST Plan of Treatment Health MaintenanceDue DateLast DoneCommentsDepression Tkjwtnaze29/23/1999Tobacco Revfloqot54/23/1999Adult BMI Ftljhinwt85/23/2005DTaP,Tdap and Td Vaccines (1 - Tdap)2005Pap Smear09/18/2007Influenza Ysdawse8412/27/2024 Medical Devices Not on file Insurance Care Teams Team MemberRelationshipSpecialtyStart DateEnd Date Sera Hernandez, BREAST WORKER-PIANO PLAYER [address] [facility], [place] [address] PCP - GeneralFamily Aoohwbho67/18/19
--- OUTSIDE RECORDS SUMMARY | 2025-04-19 12:08 | XMS_ITS | Patient Health Record ---
Author Organization [facility] in [place] Address [address] [place] [address] Care Team Providers Care Managing Supervisor Name Role Phone Sera Hernandez Primary Care Provider [phone] Tsai Christofer [phone] Allergies No Known Allergies Results Component Value Reference Range Notes COVID-19, Flu A+B IH (Not ye t reviewed by provider) Interpretation: Performing Lab: Notes/Report: COVID neg FLU AnegFLU BnegControlpresent Reason For Referral No Information Medications Medication SIG (Take, Route, Frequency, Duration) Notes Start Date End Date Status Albuterol Sulfate HFA 108 (9 0 Base) MCG/ACT INHALE 2 PUFFS INTO THE LUNGS EVERY 4 HOURS NEEDED; Duration: 17 ActiveAmoxicillin-Pot Clavulanate 875-125 MG1 tablet Orally every 12 hrs; Duration: 10 days5ActiveImitrex 100 MG1 tablet at least 2 hours between doses as needed Orally Twice a day prn; Duration: 30 daysActive Social History Tobacco Use: Social History Observation Description Date Details (start date - stop date) Former Smoker 04/28/2017 - 07/07/2022 Tobacco Use/Smoking Question Answer Notes Patient is a former smoker When did you start smoking?04/28/2017When did you stop smoking?07/07/2022How long has it been since you last smoked?1-3 monthsAlcohol Screen (Audit-C) Question Answer Notes Did you have a drink containing alcohol in the p ast year? No Bevtpm0WsrbnbcrbaklahDcnjhbuyHXRLW-U (Standard) Question Answer Notes Did you have a drink containing alcohol in the p ast year? No Coqzxz2JwxxdvqvruipnoTnehwzum Problems Problem Type SNOMED Code ICD Code Onset Dates Problem Status W/U Status Risk Notes Problem Acute stress reaction (00418151) Acute st ress reaction (F43.0) ActiveconfirmedProblemVaricose veins of bilateral lower limbs (86757816456628775)Varicose veins of bilateral lower extremities with other complications (I83.893)ActiveconfirmedProblemPeripheral venous insufficiency (55478080)Venous insufficiency (chronic) (peripheral) (I87.2)Activeconfirmed ProblemSebaceous cyst (343771207)Sebaceous cyst (L72.3)ActiveconfirmedProblem Exposure to communicable disease (050755312)Contact with and (suspected) exposure to other viral communicable diseases (Z20.828)ActiveconfirmedProblem 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)ActiveconfirmedProblem Abdominal pain (60311482)Abdominal pain (R10.9)ActiveconfirmedProblemFatigue (08664540)Fatigue (R53.83)ActiveconfirmedProblemAsthma (727190762)Asthma (J45.909)ActiveconfirmedProblemInsomnia (968057707)Insomnia (G47.00)Active confirmedProblemLumbar disc prolapse with radiculopathy (194843711)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)ActiveconfirmedProblemIrritable bowel syndrome (89761385)IBS (irritable bowel syndrome) (K58.9)ActiveconfirmedProblem Pharyngitis (525380666)Pharyngitis (J02.9)ActiveconfirmedProblemChronic migraine without aura, non-intractable (813290318034597)Chronic migraine without aura without status migrainosus, not intractable (G43.709)ActiveconfirmedProblemSkin tag (60395362)Skin tag (L91.8)ActiveconfirmedProblemSciatica (08655835)Sciatic pain, left (M54.32)ActiveconfirmedProblemUmbilical hernia (199986069)Umbilical hernia (K42.9)ActiveconfirmedProblemFever with chills (423524206)Chills with fever (R50.9)ActiveconfirmedProblemBody mass index 30+ - obesity (333549855)BMI 30.0-30.9,adult (Z68.30)ActiveconfirmedProblemAnnual wellness visit (878702953850522)Wellness examination (Z00.00)ActiveconfirmedProblemGastro- esophageal reflux disease (368540481)Gastro-esophageal reflux disease (K21.9) ActiveconfirmedProblemMixed anxiety and depressive disorder (430843132)Anxiety and depression (F41.8)ActiveconfirmedProblemAcute laryngitis (8623316) Laryngitis, acute (J04.0)Activeconfirmed Vital Signs Temperature 99.5 degrees Fahrenheit 06/16/2024 Blood pressure luzwvbdxy49 mm Hg06/16/20248138Encmie04 in06/16/2024lood pressure xmxoghln886 mm Hg06/16/20243266Nkntae241.4 lbs06/16/2024BMI48.87 kg/m206/16/2024 Encounters Encounter Location Date Provider Diagnosis [facility] [address] [place] [address] 06/16/2024 Arnaldo Hoy Fever R50.9 ; Acute non-recurrent sinusitis, unspecified location J01.90 and Nasal congestion R09.81 Assessments Encounter Date Diagnosis (ICD Code) Assessment Notes Treatment Notes Treatment Clinical Notes Section Notes 06/16/2024 Fever (ICD-10 - R50.9) 5Acute non-recurrent sinusitis, unspecified location (ICD-10 - J01.90) Rest and drink more liquids, especially water. You may use a humidifier or vaporizer to help keep the drainage moist. Nhqd-onm-htcjdwy Nasal Saline may help the stuffy and runny nose. Use Ibuprofen and or Tylenol as needed for fever, chills, body aches or pain. Children 5 years old should not be given wewp-aht-dxjtqck cough and cold medications such as guaifenesin and dextromethorphan. If you're over age 5, you may try uahh-dqf-jheckug cold medications such as guaifenesin and dextromethorphan, or multi-symptom cold reliever such as Dayquil to help reduce the symptoms. Antibiotics have been pre scribed. You should take these until completed and follow the directions. Antibiotics can sometimescause upset stomach, and in rare cases, serious allergic reactions or serious gastrointestinal problems. If you start having severe abdominal pain, severe vomiting, or bloody diarrhea, you should be r eevaluated by your physician or urgent care immediately. Follow up with your Primary Care Provider or return to clinic if symptoms do not improve within 3-5 days Rest and drink more liquids, especially water. You may use a humidifier or vaporizer to help keep the drainage moist. Yyuz-yxb-fbhmwjf Nasal Saline may help the stuffy and runny nose. Use Ibuprofen and or Tylenol as needed for fever, chills, body aches or pain. Children 5 years old should not be given islb-kdm-azmcfew cough and cold medications such as guaifenesin and dextromethorphan. If you're over age 5, you may try lmdx-aor-bjxjqds cold medications such as guaifenesin and dextromethorphan, or multi-symptom cold reliever such asDayquil to help reduce the symptoms. Antibiotics have been prescribed. You should take these until completed and follow the directions. Antibiotics can sometimes cause upset stomach, and in rare cases, serious allergic reactions or serious gastrointestinal problems. If you start having severe abdominal pain, severe vomiting, or bloody diarrhea, you should be reevaluated by your physician or urgent care immediately. Follow up with your Primary Care Provider or return to clinic if symptoms do notimprove within 3-5 days06/16/2024Nasal congestion (ICD-10 - R09.81) Plan Of Treatment Pending Test Test Name Order Date Ultrasound : Doppler : Veins Leg Left CMP (COMPLETE METABOLIC PANEL) 4 CMP (COMPLETE METABOLIC PANEL) 3 HEMOGLOBIN A1C (GLYCO) 08/02/2022 IRON, TOTAL 08/02/2022 LIPID PANEL (CHOL/TRIG/HDL/LDL) 08/03/19 23 CBC WITH DIFF (EXP 02/2025) 08/02/2022 VITAMIN D, 25 LEVEL (TOTAL) 08/02/2022 FTI 08/02/2022 Insulin Level 08/02/2022 COVID-19, Flu A+B IH 06/16/2024 STOOL OCCULT BLOOD 08/02/2022 US MINESH DOP LEG RT 08/02/2022 THYROID PANEL (T4/TSH/FREE T3) 3 Insurance Providers Payer Name Payer Address Payer Phone Subscriber Number Group Number Insured Name Patient Relationship to Insured Coverage Start Date Coverage End Date [employer] [place] [employer] [address] [place] [address] [id number] Kingston Carson - patient is the [id number]/28/2022 Medical (General) History Medical History History ICD Code Fever, unspecified R50.9 Cough, unspecified R05.9 Contact with and (suspected) exposure to other viral communicable diseases Z20.828 IBS (irritable bowel syndrome) K58.9 Anxiety and depression F41.8 Wellness examination Z00.00 Sebaceous cyst L72.3 Lumbar disc herniation with radiculopath y M51.16 Sciatic pain, left M54.32 Umbilical hernia K42.9 BMI 30.0-30.9,adult Z68.30 Gastro-esophageal reflux disease K21.9 Abdominal pain R10.9 Laryngitis, acute J04.0 Pharyngitis J02.9 Chills with fever R50.9 Skin tag L91.8 Fatigue R53.83 Insomnia G47.00 Acute stress reaction F43.0 Acquired absence of other part of head a nd neck Z90.09 Asthma J45.909 Surgical History Surgery Date(Month/Year) Tubal 09/2018
--- OUTSIDE RECORDS SUMMARY | 2025-04-19 12:08 | XMS_ITS | Patient Health Record ---
Author Organization [employer] [facility] Address [address] [facility] [place] [address] Care Team Providers Care Waterway Traffic Checker Name Role Phone Dr. Asher Austin Primary Care Provider Reason For Referral No Information Medications Medication SIG (Take, Route, Frequency, Duration) Notes Start Date End Date Status Ibuprofen 800 MG Tablet 1 tablet with fo od or milk as needed Orally Three times a day 1ActiveIbuprofen 800 MG Tablet1 tablet with food or milk as needed Orally Three times a day1Active Plan Of Treatment No Information Insurance Providers Payer Name Payer Address Payer Phone Subscriber Number Group Number Insured Name Patient Relationship to Insured Coverage Start Date Coverage End Date zDENTAL DQ [employer] [address] [place] [address] [id number] Marquis ANAYA - patient is the [id number] 2020zDental [facility] after [employer] [address] [place] [phone] [id number], JESSICASelf - patient is the [id number] 2020
[2025-04-19 12:57] LABS: Hematocrit 43.1 % (36.0-48.0); Hemoglobin 15.0 g/dL (12.0-16.0); Immature Granulocytes Abs Auto 0.02 10^3/uL (0.00-0.03); Immature Granulocytes Pct Auto 0.3 % (0.0-0.5); Lymphocytes Absolute Auto 1.9 10^3/uL (1.2-3.8); Mean Corpuscular HGB Conc 34.8 g/dL (29.9-35.2); Mean Corpuscular Hemoglobin 30.4 pg (26.7-34.0); Mean Corpuscular Volume 87.4 fL (81.0-99.0); Platelet Count 348 10^3/uL (150-450); Red Blood Count 4.93 10^6/uL (4.20-5.40); White Blood Count 6.7 10^3/uL (4.0-11.0)
[2025-04-19 13:59] LABS: Thyroid Stimulating Hormone 1.078 uIU/mL (0.358-3.740)
[2025-04-20 08:08] LABS: FSH 8.8 mIU/mL (.)
[2025-04-22 21:08] LABS: Age Gdln ACOG Testing Note (.); IGP, Aptima HPV, rfx 16/18,45 Note (.)
[2025-04-23 04:07] LABS: DHEA, Serum 182 ng/dL (31-701)
== END 2025-04-19 12:02 | disposition home or self-care (01) ==
LOC: LAB 12:05
PROVIDERS: PCP Nurse Practitioner Family; Visit Provider Obstetrics & Gynecology
DX: E28.2 Polycystic ovarian syndrome (principal); N93.9 Abnormal uterine and vaginal bleeding, unspecified
CPT/HCPCS: 36415; 82626; 82627; 83001; 83002; 83036; 84439; 84443; 84702; 85025; 88175

== ENCOUNTER 2025-04-19 19:28 | Outpatient (REF) | payer OTHER, SELFPAY ==
--- OUTSIDE RECORDS SUMMARY | 2025-04-19 11:00 | XMS_ITS | Encounter Summary ---
Author Organization [facility] Address [address] [place] [address] Care Team Providers Care Window Dresser Name Role Phone Sera Hernandez MD Unavailable [phone] Reason for Visit * ReasonCommentsWell Women Visit Encounter Details DateTypeDepartmentCare Team (Latest Contact Info)Ihwfyzyiqza46/23/2025 11:00 AM ESTOffice Visit [facility] [address] [facility] [place] [address] Rush Pace DO [address] [facility] [address] [place], [place] [phone] Well woman exam with routine gynecological exam; PCOS (polycystic ovarian syndrome); Abnormal uterine bleeding (AUB) Social History Tobacco UseTypesPacks/DayYears UsedDateSmoking Tobacco: Every DayCigarettes Alcohol UseStandard Drinks/WeekCommentsNot Currently0 (1 standard drink = 0.6 oz pure alcohol)CommentsNoSex and Gender InformationValueDate RecordedSex Assigned at CleelHbgfov07/13/2023 9:41 AM ESTLegal UxvMloojy79/15/2023 10:53 PM EDTGender MhztgophSdtbgl89/13/2023 9:41 AM ESTSexual OrientationNot on file documented as of this encounter Last Filed Vital Signs Vital SignReadingTime TakenCommentsBlood Uuqutrve118/7604/19/2025 11:24 AM EST Pulse--Temperature--Respiratory Rate--Oxygen Saturation--Inhaled Oxygen Concentration--Seffgf583 kg (385 lb 1.9 oz)04/19/2025 11:24 AM ESTHeight--Body Mass Index53.71005/31/2024 9:46 AM ESTdocumented in this encounter Progress Notes * Selma Sutherland, CLINICAL PROJECT ASSISTANT - 04/19/2025 11:00 AM EST Reason for Appointment: Patient ID: Karyn Carson is a 39 y.o. female who presents for [facility] Women Visit Patient presents today for Annual [...] Morbid obesity with BMI of 40.0-44.9, adult ([facility]) Umbilical hernia HISTORY PAST MEDICAL HISTORY SOCIAL HISTORY Past Medical History: Diagnosis Date Depression screening Encounter for [facility] woman exam History of blood clots Localized swelling of both lower extremities Morbid obesity with BMI of 40.0-44.9, adult ([facility]) Umbilical hernia Social History Tobacco Use Smoking [...] nursing note reviewed. Exam conducted with a food counter attendant present. Vitals: Estimated body mass index is [...] them. Patient can also view results via [employer]. I reinforced importance of condom use for [...] Plan of Treatment DateTypeDepartmentCare Team (Latest Contact Info)Zeunkygubsh18/14/2026 11:00 AM ESTAncillary Procedure [facility] [address] [facility] [place] [address] 05/25/2025 11:30 AM ESTProcedure Visit [facility] [address] [place] [address] [place] [address] Rush Pace DO [address] [place] [address] 04/24/2026 11:00 AM ESTProcedure Visit [facility] [address] [place] [address] [place] [address] Rush Pace DO [address] [place] [address] NameTypePriorityAssociated DiagnosesOrder SchedulePap SmearPathology and CytologyRoutine Well [...] syndrome) Abnormal uterine bleeding (AUB) Ordered: 04/19/2025Hemoglobin P9wDduAeiytxo Abnormal uterine bleeding (AUB) Ordered: 04/19/2025DHEA-sulfateLabRoutine PCOS [...] Team MemberRelationshipSpecialtyStart DateEnd Date Sera Hernandez MD [address] [place], [place] [phone] Referring PhysicianFamily Mglpjjmt27/13/24documented as of this encounter
--- OUTSIDE RECORDS SUMMARY | 2025-04-19 19:33 | XMS_ITS | Encounter Summary ---
Author Organization [facility] Address [address] [place] [address] Care Team Providers Care Stage Rigger Name Role Phone Sera Hernandez MD Unavailable [phone] Encounter Details DateTypeDepartmentCare Team (Latest Contact Info)Lnjvedpszjc14/23/2025Bamboo flowsheet [facility] [address] [facility] [place] [address] Rush Pace DO [address] [place], [facility]11 Social History Tobacco UseTypesPacks/DayYears UsedDateSmoking Tobacco: Every DayCigarettes Alcohol UseStandard Drinks/WeekCommentsNot Currently0 (1 standard drink = 0.6 oz pure alcohol)CommentsNoSex and Gender InformationValueDate RecordedSex Assigned at GfopbAtptaa70/13/2023 9:41 AM ESTLegal RwjQrixgw43/15/2023 10:53 PM EDTGender IbzktuabCqswit63/13/2023 9:41 AM ESTSexual OrientationNot on file documented as of this encounter Plan of Treatment DateTypeDepartmentCare Team (Latest Contact Info)Asigigwdlfe14/14/2026 11:00 AM ESTAncillary Procedure [facility] [address] [place] [address] 05/25/2025 11:30 AM ESTProcedure Visit [facility] [address] [facility] [place] [address] Rush Pace, DO [address] [facility] [place] [address] 04/24/2026 11:00 AM ESTProcedure Visit [facility]OMBoone GOLDBERG [address] [facility] [place] [address] Rush Pace, DO [address] [facility] [place] [address] documented as of this encounter Visit Diagnoses Not on filedocumented in this encounter Care Teams Team MemberRelationshipSpecialtyStart DateEnd Date Sera Hernandez MD [address] [place] [address] Referring PhysicianFamily Tghmjvvl56/13/24documented as of this encounter
--- OUTSIDE RECORDS SUMMARY | 2025-04-19 19:33 | XMS_ITS | Clinical Summary ---
Author Organization [facility] [employer] [facility] [employer] Address [id number] [address] [place] [address] Care Team Providers Care Material Yard Clerk Name Role Phone Sera Hernandez UNISAW OPERATOR-GAUGE AND WEIGH MACHINE OPERATOR Primary Care Provider Allergies No known active [...] standard drink = 0.6 oz pure alcohol)socialChildcareAnswerDate VsphaldhAbcdqwnocKhagcxi13/11/2019Employment AnswerDate GsspygntHjklpgdmxlOuhlrfh88/11/2019Purpose - LifeAnswerDate Recorded Purpose and direction in ypycEetaufn27/11/2021CommentsUnknownSex and Gender InformationValueDate RecordedSex Assigned at BirthNot on fileLegal Sex Bjabxp5104/07/2019 3:51 PM ESTGender IdentityNot on fileSexual OrientationNot on file Last Filed Vital Signs Vital SignReadingTime TakenCommentsBlood Ogzsqasn173/80005/19/2019 3:24 PM EST Pulse--Temperature--Respiratory Rate--Oxygen Saturation--Inhaled Oxygen Concentration--Qevqpp043.1 kg (311 lb)05/19/2019 3:24 PM YJXUjjvza104.3 cm (5' 11 )05/19/2019 3:24 PM ESTBody Mass Index43.38005/19/2019 3:24 PM EST Plan of Treatment Health MaintenanceDue DateLast DoneCommentsDepression Xtkdwqdka62/23/1999Tobacco Yduvzmhpn46/23/1999Adult BMI Evrihvape79/23/2005DTaP,Tdap and Td Vaccines (1 - Tdap)2005Pap Smear09/18/2007Influenza Dzsvrwi3812/27/2024 Medical Devices Not on file Insurance Care Teams Team MemberRelationshipSpecialtyStart DateEnd Date Sera Hernandez, UNISAW OPERATOR-GAUGE AND WEIGH MACHINE OPERATOR [address] [facility], [place] [address] PCP - GeneralFamily Jwajwbby79/18/19
--- OUTSIDE RECORDS SUMMARY | 2025-04-19 19:33 | XMS_ITS | Encounter Summary ---
Author Organization [facility] Address [address] [place] [address] Care Team Providers Care Insurance Manager Name Role Phone Sera Hernandez MD Unavailable Encounter Details DateTypeDepartmentCare Team (Latest Contact Info)Sqaenlyuulv63/17/2025Travel Social History Tobacco UseTypesPacks/DayYears UsedDateSmoking Tobacco: Every DayCigarettes Alcohol UseStandard Drinks/WeekCommentsNot Currently0 (1 standard drink = 0.6 oz pure alcohol)CommentsNoSex and Gender InformationValueDate RecordedSex Assigned at LwpmsCwdslp06/13/2023 9:41 AM ESTLegal DxmSehrex34/15/2023 10:53 PM EDTGender CwivbjhrGmbolm16/13/2023 9:41 AM ESTSexual OrientationNot on file documented as of this encounter Plan of Treatment DateTypeDepartmentCare Team (Latest Contact Info)Vdutpunghof63/14/2026 11:00 AM ESTAncillary Procedure [facility] T[facility] OBJUANCARLOSN [address] [place] [address] 05/25/2025 11:30 AM ESTProcedure Visit [facility] [address] [place] [address] Rush Pace, DO [address] [place] [address] 04/24/2026 11:00 AM ESTProcedure Visit [facility] T[facility] [address] [facility] [place] [address] Rush Pace DO [address] [facility] [address] [place], [place] [address] documented as of this encounter Visit Diagnoses Not on filedocumented in this encounter Care Teams Team MemberRelationshipSpecialtyStart DateEnd Date Sera Hernandez MD [address] [place] [address] Referring PhysicianFamily Xtquqkpj42/13/24documented as of this encounter
--- OUTSIDE RECORDS SUMMARY | 2025-04-19 19:33 | XMS_ITS | Clinical Summary ---
Author Organization [facility] Address [address] [place] [address] Care Team Providers Care Improvement Advisor Name Role Phone Sera Hernandez MD Unavailable [phone] Allergies No known active allergies Medications MedicationSigDispense QuantityRefillsLast FilledStart DateEnd DateStatus albuterol HFA 90 mcg/act inhaler Inhale 1 puff every 4 (four) hours if awzequ9608/05/2022ctive SUMAtriptan (Imitrex) 100 MG tablet TAKE 1 TABLET TWICE A DAY AT LEAST 2 HOURS BETWEEN DOSES NEEDED FOR 30 DAYS 02/17/2024ctive Active Problems No known active problems Encounters DateTypeDepartmentCare XjmsHivmxwqyqyo34/23/2025 11:00 AM ESTOffice Visit [facility] T[facility] [place] [address] Rush Pace, DO Well woman exam with routine gynecological exam; PCOS (polycystic ovarian syndrome); Abnormal uterine bleeding (AUB)04/19/2025linisync Result Encounter NOMS External Department Unsolicited Rush Pace DO 04/19/2025amboo flowsheet [facility] T[facility] [address] [place] [address] Rush Pace, DO 04/13/2025Travelfrom Last 3 Months Family History Medical HistoryRelationNameCommentsADD / ADHDDaughterCVAFatherDiabetesFather HyperlipidemiaFatherHypertensionFatherBreast cancerFather's SisterCancerMother BreastClotting disorderOtherDiabetesPaternal GrandfatherHypertensionPaternal GrandfatherDiabetesSiblingHypertensionSiblingRelationNameStatusCommentsBrother2 DaughterAliveFatherFather's SisterMotherOtherPaternal GrandfatherSibling Social History Tobacco UseTypesPacks/DayYears UsedDateSmoking Tobacco: Every DayCigarettes Tobacco Cessation:Ready to Q uit: Not Asked; Counseling Given: Yes Alcohol UseStandard Drinks/WeekCommentsNot Currently0 (1 standard drink = 0.6 oz pure alcohol)CommentsNoSex and Gender InformationValueDate RecordedSex Assigned at AnuqbDlvnxl20/13/2023 9:41 AM ESTLegal XpqYbwakz54/15/2023 10:53 PM EDTGender QpozddkoQuuigr50/13/2023 9:41 AM ESTSexual OrientationNot on file Last Filed Vital Signs Vital SignReadingTime TakenCommentsBlood Sdqbnwpk081/7604/19/2025 11:24 AM EST Ykmev2903 10:50 AM ESTTemperature--Respiratory Kdyd698205/31/2024 9:46 AM ESTOxygen Saturation--Inhaled Oxygen Concentration--Arbwmf281 kg (385 lb 1.9 oz) 04/19/2025 11:24 AM LBNAomzne908.3 cm (5' 11 )05/31/2024 9:46 AM ESTBody Mass Index53.71005/31/2024 9:46 AM EST Plan of Treatment DateTypeDepartmentCare Team (Latest Contact Info)Iihrivlgpdu72/14/2026 11:00 AM ESTAncillary Procedure [facility] T[facility]OL[facility] [address] [facility] [place] [address] 05/25/2025 11:30 AM ESTProcedure Visit [facility]OM[facility]one [facility]OL[facility]ERG [address] [facility] [place] [address] Rush Pace, [address] [facility] [address] [place], [place] [address] 04/24/2026 11:00 AM ESTProcedure Visit [facility] [address] [facility] [address] Rush Pace, DO [address] [facility] [place] [address] Procedures Procedure NamePriorityDate/TimeAssociated DiagnosisCommentsMLR HEMOGLOBIN A1C Diourjv8604/19/2025 12:15 PM EST TBH PREG QUANT VTDUahmfjs17/23/2025 12:15 PM EST ALL THYROID STIM IQVYGFVVojdafu41/23/2025 12:15 PM EST ALL THYROXINE (T4) NTOOWkpqsdf27/23/2025 12:15 PM EST ALL CBC WITH AUTO YNIIQkvjjss50/23/2025 12:15 PM EST from Last 3 Months Results * TBH PREG QUANT HCG (04/19/2025 12:15 PM EST)ComponentValueRef RangeTest Method Analysis TimePerformed AtPathologist SignatureHCG QUANTITATIVE<1mIU/mLTBH Comment: 5-50 ? 0.2-1 WEEK 50-500 ? 1-2 WEEKS 100-5,000 ?2-3 WEEKS 500-10,000 ? 3-4 WEEKS 1,000-50,000 ?? 4-5 WEEKS 10,000-100,000 5-6 WEEKS 15,000-200,000 6-8 WEEKS 10,000-100,000 2-3 MONTHS Specimen (Source)Anatomical Location / LateralityCollection Method / Volume Collection TimeReceived Time04/19/2025 12:15 PM EST04/19/2025 12:17 PM EST Narrative CLINISYNC - 04/19/2025 2:06 PM EST Authorizing ProviderResult TypeResult StatusCorey Sanjeev DOCLINISYNCFinal Result Performing OrganizationAddressCity/[facility]/ZIP CodePhone Number [facility] * MLR HEMOGLOBIN A1C (04/19/2025 12:15 PM EST)ComponentValueRef RangeTest Method Analysis TimePerformed AtPathologist SignatureGLYCOHEMOGLOBIN A1C5.54.5 - 6.2 %TBHComment: ADA RECOMMENDED LIMIT 4.0 - 6.0 ADA THERAPEUTIC TARGET < 7.0 ACTION SUGGESTED > 7.0 ESTIMATED AVERAGE IZJJVVG965xz/dLTBHSpecimen (Source)Anatomical Location / LateralityCollection Method / VolumeCollection TimeReceived Time04/19/2025 12:15 PM EST04/19/2025 12:18 PM EST Narrative CLINISYNC - 04/19/2025 2:35 PM EST Authorizing ProviderResult TypeResult StatusCorey Sanjeev DOCLINISYNCFinal Result Performing OrganizationAddLe[facility]/ZIP CodePhone Number [facility] * ALL THYROXINE (T4) FREE (04/19/2025 12:15 PM EST)ComponentValueRef RangeTest MethodAnalysis TimePerformed AtPathologist SignatureFREE [id number] - 1.46 ng/dLTBHSpecimen (Source)Anatomical Location / LateralityCollection Method / VolumeCollection TimeReceived Time04/19/2025 12:15 PM EST04/19/2025 12:17 PM EST Narrative CLINISYNC - 04/19/2025 2:06 PM EST Authorizing ProviderResult TypeResult StatusCorey Sanjeev DOCLINISYNCFinal Result Performing OrganizationAddLe[facility] CodePhone Number [facility] * ALL THYROID STIM HORMONE (04/19/2025 12:15 PM EST)ComponentValueRef RangeTest MethodAnalysis TimePerformed AtPathologist SignatureTHYROID STIMULATING HORMONE1.0780.358 - 3.740 uIU/mLTBHSpecimen (Source)Anatomical Location / LateralityCollection Method / VolumeCollection TimeReceived Time04/19/2025 12:15 PM EST04/19/2025 12:17 PM EST Narrative CLINISYNC - 04/19/2025 2:06 PM EST Authorizing ProviderResult TypeResult StatusCorey Sanjeev DOCLINISYNCFinal Result Performing OrganizationAddThe [facility] Hospital Foundationty/State/ZIP CodePhone Number CLINISYNC [facility] * ALL CBC WITH AUTO DIFF (04/19/2025 12:15 PM EST)ComponentValueRef RangeTest MethodAnalysis TimePerformed AtPathologist SignatureTBH WBC6.74.0 - 11.0 10 3/uLTBHTBH RBC4.934.20 - 5.40 10 6/uLTBHTBH HGB15.012.0 - 16.0 g/dLTBHTBH HCT 43.136.0 - 48.0 %TBHTBH MCV87.481.0 - 99.0 fLTBHTBH MCH30.426.7 - 34.0 pgTBH TBH MCHC34.829.9 - 35.2 g/dLTBHTBH RDW12.011.0 - 15.0 %TBHTBH NYG895286 - 450 10 3/uLTBHTBH MPV9.59.5 - 13.5 fLTBHNEUTROPHILS PERCENT AUTO54.343.0 - 75.0 % TBHLYMPHOCYTES PERCENT AUTO28.420.5 - 60.0 %TBHMONOCYTES PERCENT AUTO10.31.7 - 12.0 %TBHTBH EO %5.40.9 - 7.0 %TBHBASOPHILS PERCENT AUTO1.30.2 - 2.0 %[facility] IMMATURE GRANULOCYTES PCT AUTO0.30.0 - 0.5 %TBHNEUTROPHILS ABSOLUTE AUTO3.61.4 - 6.5 10 3/uLTBHLYMPHOCYTES ABSOLUTE AUTO1.91.2 - 3.8 10 3/uLTBHMONOCYTES ABSOLUTE AUTO0.70.3 - 0.8 10 3/uLTBHTBH EO #0.40.0 - 0.7 10 3/uLTBHBASOPHILS ABSOLUTE AUTO0.10.0 - 0.1 10 3/uLTBHIMMATURE GRANULOCYTES ABS AUTO0.020.00 - 0.03 10 3/uLTBHSpecimen (Source)Anatomical Location / LateralityCollection Method / VolumeCollection TimeReceived Time04/19/2025 12:15 PM EST04/19/2025 12:18 PM EST Narrative CLINISYNC - 04/19/2025 1:10 PM EST Authorizing ProviderResult TypeResult StatusCorey Sanjeev DOCLINISYNCFinal Result Performing OrganizationAddressCity/State/ZIP CodePhone Number CLINISYNC [facility] from Last 3 Months Insurance * Guarantor: Karyn CarsonAccount TypeRelation to PatientDate of BirthPhone Billing AddressPersonal/ObmpkyUuou21/[birth year][address] [address] Care Teams Team MemberRelationshipSpecialtyStart DateEnd Date Sera Hernandez MD [address] [place] [id number] Referring PhysicianFamily Tmmmeqly44/13/24
--- OUTSIDE RECORDS SUMMARY | 2025-04-19 19:33 | XMS_ITS | Encounter Summary ---
Author Organization [facility] Address [address] [place] [address] Care Team Providers Care Iuss Acoustic Analyst Name Role Phone Sera Hernandez MD Unavailable Encounter Details DateTypeDepartmentCare Team (Latest Contact Info)Dasqzrtwsgb84/23/2025Clinisync Result Encounter NOMS External Department Unsolicited Rush Pace, DO [address] [place] [address] Social History Tobacco UseTypesPacks/DayYears UsedDateSmoking Tobacco: Every DayCigarettes Alcohol UseStandard Drinks/WeekCommentsNot Currently0 (1 standard drink = 0.6 oz pure alcohol)CommentsNoSex and Gender InformationValueDate RecordedSex Assigned at QoqgqEwpekw84/13/2023 9:41 AM ESTLegal JhoYxousn12/15/2023 10:53 PM EDTGender DfmsldwaMhxajt16/13/2023 9:41 AM ESTSexual OrientationNot on file documented as of this encounter Plan of Treatment DateTypeDepartmentCare Team (Latest Contact Info)Btzjnrzfion43/14/2026 11:00 AM ESTAncillary Procedure [facility] Tae [facility]OLDBERG [address] [place] [address] 05/25/2025 11:30 AM ESTProcedure Visit [facility] Tae [facility]OLDBERG [address] [facility] [place] [address] Rush Pace, DO [address] [facility] [address] [place], [place] [address] 04/24/2026 11:00 AM ESTProcedure Visit [facility] [address] [facility] [place] [address] Rush Pace, DO [address] [facility] [address] [place], [place] [phone] documented as of this encounter Procedures Procedure NamePriorityDate/TimeAssociated DiagnosisCommentsTBH PREG QUANT HCG Goejckg7704/19/2025 12:15 PM EST MLR HEMOGLOBIN O8FYuuqwnx52/23/2025 12:15 PM EST ALL THYROXINE (T4) JHZXIgmgjav32/23/2025 12:15 PM EST ALL THYROID STIM OAACOMWUnmucpy57/23/2025 12:15 PM EST ALL CBC WITH AUTO YTAUUmggyhi67/23/2025 12:15 PM EST documented in this encounter Results * MLR HEMOGLOBIN A1C (04/19/2025 12:15 PM EST)ComponentValueRef RangeTest Method Analysis TimePerformed AtPathologist SignatureGLYCOHEMOGLOBIN A1C5.54.5 - 6.2 %TBHComment: ADA RECOMMENDED LIMIT 4.0 - 6.0 ADA THERAPEUTIC TARGET < 7.0 ACTION SUGGESTED > 7.0 ESTIMATED AVERAGE PWWHTTI383rv/dLTBHSpecimen (Source)Anatomical Location / LateralityCollection Method / VolumeCollection TimeReceived Time04/19/2025 12:15 PM EST04/19/2025 12:18 PM EST Narrative CLINISYNC - 04/19/2025 2:35 PM EST Authorizing ProviderResult TypeResult StatusCorey Sanjeev DOCLINISYNCFinal Result Performing OrganizationAddressCity/State/ZIP CodePhone Number [facility] * [facility] PREG QUANT HCG (04/19/2025 12:15 [...] Sanjeev DOCLINISYNCFinal Result Performing OrganizationAddressCity/State/ZIP CodePhone Number [facility] * ALL THYROID STIM HORMONE (04/19/2025 12:15 PM EST)ComponentValueRef RangeTest MethodAnalysis TimePerformed AtPathologist SignatureTHYROID STIMULATING HORMONE1.0780.358 - 3.740 uIU/mLTBHSpecimen (Source)Anatomical Location / LateralityCollection Method / VolumeCollection TimeReceived Time04/19/2025 12:15 PM EST04/19/2025 12:17 PM EST Narrative CLINISYNC - 04/19/2025 2:06 PM EST Authorizing ProviderResult TypeResult StatusCorey Sanjeev DOCLINISYNCFinal Result Performing OrganizationAddressty/State/ZIP CodePhone Number [facility] * ALL THYROXINE (T4) FREE (04/19/2025 12:15 PM EST)ComponentValueRef RangeTest MethodAnalysis TimePerformed AtPathologist SignatureFREE [id number] - 1.46 ng/dLTBHSpecimen (Source)Anatomical Location / LateralityCollection Method / VolumeCollection TimeReceived Time04/19/2025 12:15 PM EST04/19/2025 12:17 PM EST Narrative [facility] - 04/19/2025 2:06 PM EST Authorizing ProviderResult TypeResult StatusCorey Sanjeev DOCLINISYNCFinal Result Performing OrganizationAddressCity/State/ZIP CodePhone Number [facility] * ALL CBC WITH AUTO DIFF (04/19/2025 12:15 PM EST)ComponentValueRef RangeTest MethodAnalysis TimePerformed AtPathologist SignatureTBH WBC6.74.0 - 11.0 10 3/uLTBHTBH RBC4.934.20 - 5.40 10 6/uLTBHTBH HGB15.012.0 - 16.0 g/dLTBHTBH HCT 43.136.0 - 48.0 %TBHTBH MCV87.481.0 - 99.0 fLTBHTBH MCH30.426.7 - 34.0 pgTBH TBH MCHC34.829.9 - 35.2 g/dLTBHTBH RDW12.011.0 - 15.0 %TBHTBH ETP872829 - 450 10 3/uLTBHTBH MPV9.59.5 - 13.5 fLTBHNEUTROPHILS PERCENT AUTO54.343.0 - 75.0 % TBHLYMPHOCYTES PERCENT AUTO28.420.5 - 60.0 %TBHMONOCYTES PERCENT AUTO10.31.7 - 12.0 %TBHTBH EO %5.40.9 - 7.0 %TBHBASOPHILS PERCENT AUTO1.30.2 - 2.0 %TB IMMATURE GRANULOCYTES PCT AUTO0.30.0 - 0.5 %TBHNEUTROPHILS [...] Result Performing OrganizationAddressCity/State/ZIP CodePhone Number CLINISYNC [facility] documented in this encounter Visit Diagnoses Not on filedocumented in this encounter Care Teams Team MemberRelationshipSpecialtyStart DateEnd Date Sera Hernandez MD [address] [place] [address] Referring PhysicianFamily Pxnbmdtp21/13/24documented as of this encounter
== END 2025-04-19 19:29 | disposition home or self-care (01) ==
LOC: LAB 19:28
PROVIDERS: PCP Nurse Practitioner Family; Visit Provider Obstetrics & Gynecology
DX: Z01.419 Encounter for gynecological examination (general) (routine) without abnormal findings (principal)